=== PATIENT | male | born 1950 | race Native Hawaiian/Other Pacific Islander ===

== ENCOUNTER 2017-01-06 15:10 | Emergency (ER) | payer OTHER ==
[~2017-01-06] VITALS: Ht 188 cm; Wt 110.0 kg
[~2017-01-06 15:10] MED LIST: ASPI325T PO; DILT31TA PO; FURO1TAB60 PO; METF500T PO; PROT40TA PO
[2017-01-06 15:12] VITALS: BP 218/113; PULSE 86; RESP 20; TEMP 98.5; O2SAT 96
--- NOTE | 2017-01-06 15:17 | PD ---
Physical Exam Time Seen by Provider: 15:14 Narrative 66 y/o male here for evaluation htn, dizziness for one month. Tomorrow he begins fasting for Ramadan and he was hoping to get medical clearance for this. Vital signs reviewed. Seen at triage desk. Awaiting bed placement. Data Data Last Documented VS Vital Signs Date Time Temp Pulse Resp B/P Pulse Ox O2 Delivery O2 Flow Rate FiO2 01/06/17 15:12 98.5 86 20 218/113 96 Room Air [facility] Medical Record Reviewed: Yes Supervised Visit with LIZETTE: Vinayak Snyder January 06, 2017 15:17
[2017-01-06] MEDS ORDERED: hydrALAZINE HCL 20 MG/ML VIAL IV PUSH ONE (15:45)
--- NOTE | 2017-01-06 15:58 | PD ---
HPI Chief Complaint: Medical Clearance Time Seen by Provider: 15:39 Travel History International Travel<30 days: No Contact w/Intl Traveler<30days: No Traveled to known affect area: No History of Present Illness HPI This is a 66-year-old male with history of hypertension, kidney stones, who presents today with complaints of headache and dizziness with elevated blood pressure. Patient also says he has mild left flank pain. Patient states he was seen in [facility] several days ago was diagnosed with kidney stones. The patient also reports that he is a Sikh and is starting, don tomorrow. He wants to make sure that it'll be okay for him to fast for Ramadan with the symptoms he is experiencing. He denies this being the worst headache of his life. He states it's mild bifrontal but continuous. He denies any stiff neck. There is no photophobia or nausea. Patient denies any chest pain, chest pressure. He denies any shortness of breath. PFSH Past Medical History Hx Anticoagulant Therapy: Yes Heart Rhythm Problems: Yes Cardiovascular Problems: Yes Chest Pain: Yes Congestive Heart Failure: Yes Diabetes: Yes Patient Takes Glucophage: Yes Diminished Hearing: No Gastrointestinal Disorders: Yes (history of ulcers in the past) GERD: Yes Headaches: Yes Hypertension: Yes Respiratory: Yes Ulcer: Yes Tetanus Vaccination: > 5 Years Influenza Vaccination: No Past Surgical History Other Surgery: Yes (neck "a long time ago") Social History Alcohol Use: Yes (OCASSIONALLY) Tobacco Use: No Substance Use: No Allergies-Medications (Allergen,Severity, Reaction): Coded Allergies: No Known Allergies (Verified , 01/06/17) Reported Meds & Prescriptions Reported Meds & Active Scripts Active Metformin (Metformin HCl) 500 Mg Tab 500 Mg PO BIDPC With meals Diltiazem ER 12 HR (Diltiazem HCl) 60 Mg Caper 60 Mg PO BID Reported Metformin (Metformin HCl) 500 Mg Tab 500 Mg PO BIDPC With meals Cardizem (Diltiazem HCl) 30 Mg Tab 30 Mg PO BID Review of Systems Except as stated in HPI: all other systems reviewed are Neg General / Constitutional: No: Fever, Chills Eyes: No: Diploplia, Blurred Vision, Photophobia HENT: Positive: Headaches (bifrontal), Lightheadedness (dizziness), No: Neck Stiffness, Neck Pain Cardiovascular: No: Chest Pain or Discomfort, Palpitations Respiratory: No: Cough, Shortness of Breath Gastrointestinal: No: Nausea, Vomiting, Abdominal Pain Genitourinary: Positive: Flank Pain, No: Hematuria Musculoskeletal: No: Weakness Neurologic: Positive: Headache (mild bifrontal), No: Weakness, Dizziness Endocrine: No: Polyuria, Polydipsia Physical Exam Narrative GENERAL: Well-developed well-nourished gentleman in no acute respiratory distress SKIN: Focused skin assessment warm/dry. HEAD: Atraumatic. Normocephalic. EYES No scleral icterus. No injection or drainage. ENT: No nasal bleeding or discharge. Mucous membranes pink and moist. NECK: Trachea midline. No JVD. Supple CARDIOVASCULAR: Regular rate in the 80s and normal rhythm. No murmur appreciated. RESPIRATORY: No accessory muscle use. Clear to auscultation. Breath sounds equal bilaterally. GASTROINTESTINAL: Abdomen soft, non-tender, nondistended. MUSCULOSKELETAL: No obvious deformities. No clubbing. No cyanosis. No edema. NEUROLOGICAL: Awake and alert. No obvious cranial nerve deficits. Motor grossly within normal limits. Normal speech. Data Data Last Documented VS Vital Signs Date Time Temp Pulse Resp B/P Pulse Ox O2 Delivery O2 Flow Rate FiO2 01/06/17 16:14 95 17 161/62 99 Room Air 01/06/17 15:12 98.5 Orders Electrocardiogram (01/06/17 ) Complete Blood Count With Diff (01/06/17 15:39) Comprehensive Metabolic Panel (01/06/17 15:39) Ckmb (Isoenzyme) Profile (01/06/17 15:39) Troponin I (01/06/17 15:39) Urinalysis - C+S If Indicated (01/06/17 15:39) Ct Brain W/O Iv Contrast(Rout) (01/06/17 15:39) Hydralazine Inj (Apresoline Inj) (01/06/17 15:45) Labs Laboratory Tests Test 01/06/17 01/06/17 15:39 16:50 White Blood Count 7.3 TH/MM3 Red Blood Count 5.05 MIL/MM3 Hemoglobin 14.2 GM/DL Hematocrit 41.7 % Mean Corpuscular Volume 82.6 FL Mean Corpuscular Hemoglobin 28.2 PG Mean Corpuscular Hemoglobin 34.1 % Concent Red Cell Distribution Width 16.1 % Platelet Count 144 TH/MM3 Mean Platelet Volume 8.9 FL Neutrophils (%) (Auto) 62.2 % Lymphocytes (%) (Auto) 26.0 % Monocytes (%) (Auto) 8.8 % Eosinophils (%) (Auto) 2.5 % Basophils (%) (Auto) 0.5 % Neutrophils # (Auto) 4.6 TH/MM3 Lymphocytes # (Auto) 1.9 TH/MM3 Monocytes # (Auto) 0.6 TH/MM3 Eosinophils # (Auto) 0.2 TH/MM3 Basophils # (Auto) 0.0 TH/MM3 CBC Comment DIFF FINAL Differential Comment Sodium Level 138 MEQ/L Potassium Level 4.2 MEQ/L Chloride Level 101 MEQ/L Carbon Dioxide Level 29.8 MEQ/L Anion Gap 7 MEQ/L Blood Urea Nitrogen 17 MG/DL Creatinine 0.91 MG/DL Estimat Glomerular Filtration 84 ML/MIN Rate Random Glucose 171 MG/DL Calcium Level 9.4 MG/DL Total Bilirubin 0.3 MG/DL Aspartate Amino Transf 13 U/L (AST/SGOT) Alanine Aminotransferase 29 U/L (ALT/SGPT) Alkaline Phosphatase 74 U/L Total Creatine Kinase 71 U/L Troponin I LESS THAN 0.02 NG/ML Total Protein 7.2 GM/DL Albumin 3.7 GM/DL Urine Color LIGHT-YELLOW Urine Turbidity CLEAR Urine pH 7.0 Urine Specific [place] 1.009 Urine Protein NEG mg/dL Urine Glucose (UA) NEG mg/dL Urine Ketones NEG mg/dL Urine Occult Blood NEG Urine Nitrite NEG Urine Bilirubin NEG Urine Urobilinogen LESS THAN 2.0 MG/DL Urine Leukocyte Esterase NEG Urine WBC 1 /hpf Urine Amorphous Sediment RARE Urine Mucus FEW /lpf Microscopic Urinalysis Comment CULT NOT INDICATED MDM Medical Decision Making Medical Screen Exam Complete: Yes Emergency Medical Condition: Yes Differential Diagnosis Uncontrolled hypertension versus hypertension urgency/emergency versus kidney stone Narrative Course This is a 66-year-old gentleman with history of hypertension, diabetes mellitus , kidney stone, presents today with complaints of elevated blood pressure with dizziness. The patient had a blood pressure was extremely elevated. He is not currently taking his blood pressure medicines. He was given hydralazine, 20 mg I V times one dose. His blood pressures come down nicely. He currently has no dizziness. CT scan of the brain shows no evidence of acute intracranial abnormalities. Laboratory tests show elevated blood sugar and he does have a history of diabetes mellitus. He was concerned that since it was Ramadan starting tomorrow that he should be checked out. At this point I see no reason for him not to fast during Ramadan. He is instructed to drink plenty of fluids outside of the Ramadan fasting window. He is also instructed to check his blood pressure daily. He is instructed to return of he develops any return of symptoms, worsening flank pain, difficulty urinating, headache, nausea vomiting , or any other reason the concerns and. Diagnosis Primary Impression: Uncontrolled hypertension Additional Impressions: Diabetes mellitus history of renal lithiasis. Additional Instructions: Return if feeling worse. Follow up with primary care physician for blood pressure and diabetes control. Check blood pressure daily and record. If feeling worse, headache, dizziness, nausea vomiting, or any other reason please return to the emergency department. Med/Other Pt SpecificInfo: Prescription(s) given Scripts Metformin 500 Mg [id number] Mg PO BIDPC #60 TAB Ref 0 With meals Prov:Augustin Reeves MD 01/06/17 Diltiazem ER 12 HR 60 Mg Caper60 Mg PO BID #60 CAP Ref 0 Prov:Augustin Reeves MD 01/06/17 Disposition: 01 DISCHARGE HOME Condition: Stable Augustin Reeves MD January 06, 2017 15:58
[2017-01-06 16:09] LABS: AUTOMATED NEUTROPHIL # 4.6 TH/MM3 (1.8-7.7); BASOPHIL % 0.5 % (0.0-2.0); EOSINOPHIL # 0.2 TH/MM3 (0-0.4); EOSINOPHIL % 2.5 % (0.0-4.0); HEMATOCRIT 41.7 % (39.0-51.0); HEMO FLAGS DIFF FINAL; LYMPHOCYTE # 1.9 TH/MM3 (1.0-4.8); MEAN CELL VOLUME 82.6 FL (80.0-100.0); MEAN CORPUSCULAR HEMOGLOBIN 28.2 PG (27.0-34.0); MEAN CORPUSCULAR HGB CONC 34.1 % (32.0-36.0); MONO % 8.8 % (0.0-8.0); NEUT % 62.2 % (16.0-70.0); PLATELET COUNT 144 TH/MM3 (150-450); RED BLOOD COUNT 5.05 MIL/MM3 (4.50-5.90); RED CELL DISTRIBUTION WIDTH 16.1 % (11.6-17.2); WHITE BLOOD COUNT 7.3 TH/MM3 (4.0-11.0)
[2017-01-06 16:14] VITALS: BP 161/62; PULSE 95; RESP 17; O2SAT 99
--- NOTE | 2017-01-06 16:18 | RADRPT ---
EXAM DATE/TIME: 01/06/2017 16:01 [facility] COMPARISON: CT BRAIN W/O CONTRAST, November 14, 2015, 19:57. INDICATIONS : Cephalgia. RADIATION DOSE: 56.35 CTDIvol (mGy) MEDICAL HISTORY : Hypertension. Diabetes mellitus type 2. Cardiovascular disease SURGICAL HISTORY : None. ENCOUNTER: Initial ACUITY: 1 month PAIN SCALE: 7/10 LOCATION: Bilateral cranial TECHNIQUE: Multiple contiguous axial images were obtained of the head. Using automated exposure control and adj ustment of the mA and/or kV according to patient size, radiation dose was kept as low as reasonably a chievable to obtain optimal diagnostic quality images. FINDINGS: CEREBRUM: The ventricles are normal for age. No evidence of midline shift, mass lesion, hemorrhage or acute in farction. No extra-axial fluid collections are seen. POSTERIOR FOSSA: The cerebellum and brainstem are intact. The 4th ventricle is midline. The cerebellopontine angle i s unremarkable. EXTRACRANIAL: The visualized portion of the orbits is intact. There is fluid and mucosal thickening in the right ma xillary sinus. SKULL: The calvaria is intact. No evidence of skull fracture. CONCLUSION: 1. No acute intracranial abnormalities. Stable chronic white matter ischemic changes. Right maxillary sinus disease. Clemente Swenson MD on January 06, 2017 at 16:13 Board Certified Radiologist. This report was verified electronically.
[2017-01-06 16:33] LABS: ALT (GPT) 29 U/L (12-78); ANION GAP 7 MEQ/L (5-15); AST (GOT) 13 U/L (15-37); BICARBONATE 29.8 MEQ/L (21.0-32.0); BLOOD UREA NITROGEN 17 MG/DL (7-18); CHLORIDE 101 MEQ/L (98-107); GLOMERULAR FILTRATION RATE 84 ML/MIN (>89); POTASSIUM 4.2 MEQ/L (3.5-5.1); SODIUM (NA) 138 MEQ/L (136-145)
[2017-01-06 16:37] LABS: ALKALINE PHOSPHATASE 74 U/L (45-117); TOTAL BILIRUBIN ADULT 0.3 MG/DL (0.2-1.0)
[2017-01-06 16:51] LABS: CREATINE KINASE 71 U/L (39-308)
[2017-01-06 17:38] LABS: BLOOD, URINE NEG (NEG); COMMENT (UR) CULT NOT INDICATED; CULTURE IF INDICATED CULT NOT INDICATED; GLUCOSE,URINE NEG (NEG); KETONE, URINE NEG (NEG); MUCUS URINE FEW /lpf (OCC); NITRITE,URINE NEG (NEG); URINE COLOR LIGHT-YELLOW (YELLW/STRAW)
[2017-01-06] MEDS ORDERED: METF500T PO (18:19)
[2017-01-06] MEDS ORDERED: DILT60CA PO (18:19)
[2017-01-06 18:37] VITALS: BP 140/82; TEMP 97.8
--- NOTE | 2017-01-07 15:37 | EKG ---
Date Performed: 01/06/2017 Time Performed: 15:38:55 PTAGE: 66 years EKG: Probable LVH with secondary ST-T wave change Since PREVIOUS TRACING 07/07/2016, no significant change. PREVIOUS TRACIN07/07/2016 23.56 DOCTOR: Cristopher Penny Interpretating Date/Time 01/07/2017 15:36:22
== END 2017-01-06 18:36 | disposition home or self-care (01) ==
LOC: NEPC 15:10
DX: I10 Essential (primary) hypertension (principal); R51 Headache; R42 Dizziness and giddiness; J32.0 Chronic maxillary sinusitis; E11.9 Type 2 diabetes mellitus without complications; Z87.442 Personal history of urinary calculi
CPT/HCPCS: 70450; 80053; 81001; 82550; 84484; 85025; 93005; 96374; 99285; J0360

== ENCOUNTER 2017-05-08 15:27 | Emergency (ER) | payer OTHER ==
[2017-05-08] VITALS (7 sets, daily range): BP systolic 163–210; BP diastolic 90–120; PULSE 86–89; RESP 16; TEMP 98.4; O2SAT 98–100
[~2017-05-08] VITALS: Ht 188 cm; Wt 109.0 kg
[~2017-05-08 15:27] MED LIST changes: -ASPI325T PO; +DILT60CA PO; -FURO1TAB60 PO; -PROT40TA PO
--- NOTE | 2017-05-08 16:01 | PD ---
Physical Exam Date Seen by Provider: May 08, 2017 Time Seen by Provider: 16:00 Narrative 66 yo male here for HTN. history of this. Doesnt feel well. Here for refill of med. Ran out 3 days ago. No other complains. Vitals are stable in triage except for high BP. Awaiting bed placement. Data Data Last Documented VS Vital Signs Date Time Temp Pulse Resp B/P (MAP) Pulse Ox O2 Delivery O2 Flow Rate FiO2 05/08/17 15:28 98.4 89 16 205/100 (135) 98 MDM Medical Record Reviewed: Yes Supervised Visit with LIZETTE: Lorenzo Kamara May 08, 2017 16:01
[2017-05-08] MEDS ORDERED: cloNIDine HCL 0.2 MG TAB PO ONE (17:30)
--- NOTE | 2017-05-08 17:32 | PD ---
HPI Chief Complaint: Hypertension Time Seen by Provider: 17:24 Travel History International Travel<30 days: No Contact w/Intl Traveler<30days: No Traveled to known affect area: No History of Present Illness HPI 66-year-old male presents to the emergency Department for medication refill of his diltiazem. Patient states he ran out 3 days ago. Patient states he is tired because he had to drive to [place] and got Back at 4:00 This Morning. He Reports a Mild Headache. No Chest Pain or shortness of Breath. No Abdominal Pain. No Nausea, Vomiting, Diarrhea. He Reports History of Hypertension and Diabetes. He Currently Takes Metformin and diltiazem. He states he follows up with primary care physician, but did not get a medication refill when he saw his primary last week. Patient states he is only here for his medication refill. PFSH Past Medical History Hx Anticoagulant Therapy: Yes Heart Rhythm Problems: Yes Cardiovascular Problems: Yes Chest Pain: Yes Congestive Heart Failure: Yes Diabetes: Yes Patient Takes Glucophage: No Diminished Hearing: No Gastrointestinal Disorders: Yes (history of ulcers in the past) GERD: Yes Headaches: Yes Hypertension: Yes Respiratory: Yes Ulcer: Yes Tetanus Vaccination: > 5 Years Influenza Vaccination: No Past Surgical History Other Surgery: Yes (neck "a long time ago") Social History Alcohol Use: Yes (OCASSIONALLY) Tobacco Use: No Substance Use: No Allergies-Medications (Allergen,Severity, Reaction): Coded Allergies: No Known Allergies (Verified , 05/08/17) Reported Meds & Prescriptions Reported Meds & Active Scripts Active Metformin (Metformin HCl) 500 Mg Tab 500 Mg PO BIDPC With meals Diltiazem ER 12 HR (Diltiazem HCl) 60 Mg Caper 60 Mg PO BID Reported Metformin (Metformin HCl) 500 Mg Tab 500 Mg PO BIDPC With meals Cardizem (Diltiazem HCl) 30 Mg Tab 30 Mg PO BID Review of Systems Except as stated in HPI: all other systems reviewed are Neg Physical Exam Narrative GENERAL: Well-nourished, well-developed male patient, afebrile. SKIN: Focused skin assessment warm/dry. HEAD: Normocephalic. Atraumatic. EYES: No scleral icterus. No injection or drainage. NECK: Supple, trachea midline. No JVD or lymphadenopathy. CARDIOVASCULAR: Regular rate and rhythm without murmurs, gallops, or rubs. RESPIRATORY: Breath sounds equal bilaterally. No accessory muscle use. Lungs sounds are clear to auscultation. GASTROINTESTINAL: Abdomen soft, non-tender, nondistended. MUSCULOSKELETAL: No cyanosis, or edema. BACK: Nontender without obvious deformity. No CVA tenderness. Data Data Last Documented VS Vital Signs Date Time Temp Pulse Resp B/P (MAP) Pulse Ox O2 Delivery O2 Flow Rate FiO2 05/08/17 18:41 86 163/90 (114) 100 05/08/17 15:28 98.4 16 Orders Orders Clonidine (Catapres) (05/08/17 17:30) [facility] Medical Decision Making Medical Screen Exam Complete: Yes Emergency Medical Condition: Yes Medical Record Reviewed: Yes Differential Diagnosis Hypertension versus medication refill versus hypertensive emergency Narrative Course 66-year-old male presents to the emergency department requesting medication refill of his diltiazem. Patient was given clonidine 0.2 mg by mouth prior to me seeing the patient. I will monitor his blood pressure and the discharge him home with a prescription for his diltiazem. Upon reassessment, blood pressure is 163/90. Patient states he feels fine and would like to go home. Patient will be discharged with a refill of his Diltiazem. He is to return here for any worsening symptoms. He verbalizes agreement and understanding. The patient was discharged in stable condition with instructions, including return instructions and follow up instructions. Diagnosis Primary Impression: Hypertension Qualified Codes: I10 - Essential (primary) hypertension Referrals: Primary Care Physician call for appointment Patient Instructions: General Instructions, Hypertension (ED) Additional Instructions: Take Diltiazem as directed. Monitor your blood pressure. Follow up with your primary care physician. Return to the emergency department for any acute, worsening of symptoms. Med/Other Pt SpecificInfo: Prescription(s) given Scripts Diltiazem ER 12 HR (Diltiazem ER 12 HR) 60 Mg Caper 60 MG PO BID, #60 CAP 0 Refills Prov: GerZora 05/08/17 Disposition: 01 DISCHARGE HOME Condition: Stable Zora Cyr May 08, 2017 17:32
[2017-05-08] MEDS ORDERED: DILT60CA PO (18:45)
== END 2017-05-08 19:04 | disposition home or self-care (01) ==
LOC: NEPK 15:27 → NEPC 19:04
DX: I10 Essential (primary) hypertension (principal); E11.9 Type 2 diabetes mellitus without complications; Z76.0 Encounter for issue of repeat prescription; Z79.01 Long term (current) use of anticoagulants
CPT/HCPCS: 99283

== ENCOUNTER 2017-07-05 15:10 | Emergency (ER) | payer OTHER ==
[~2017-07-05] VITALS: Ht 182.9 cm; Wt 109.0 kg
[2017-07-05 15:12] VITALS: BP 233/125; PULSE 99; RESP 20; TEMP 97.8; O2SAT 97
[2017-07-05] MEDS ORDERED: LABETALOL HCL 100 MG/20 ML VIAL IV PUSH ONE (15:45)
[2017-07-05] MEDS ORDERED: KETOROLAC TROMETHAMINE 30 MG/ML (IVP) VIAL IV PUSH ONE (15:45)
[2017-07-05] MEDS ORDERED: SODIUM CHLORIDE 0.9% FLUSH 10 ML FLUSH IVF PRN (15:45)
--- NOTE | 2017-07-05 15:50 | PD ---
HPI Chief Complaint: Complaint Time Seen by Provider: 15:35 Travel History International Travel<30 days: No Contact w/Intl Traveler<30days: No Traveled to known affect area: No History of Present Illness HPI 66-year-old male presents to the emergency department for evaluation of left lower back pain, increased urinary frequency. He states that the urinary frequency started approximately one month ago, but the back pain just started in the last day or 2. Patient states that the back pain could be from the way he slept, but believes is related to his urinary symptoms. Patient does report a history of nephrolithiasis in the past. He states this pain is different. Patient denies any fevers or chills. No chest pain or shortness of breath. No abdominal pain. No nausea or vomiting. No diarrhea or constipation. He denies any abdominal surgeries. He does report a history of hypertension, diabetes. He states he took his blood pressure medication this morning as prescribed. Severity is mild to moderate. No exacerbating or alleviating factors. PFSH Past Medical History Hx Anticoagulant Therapy: Yes Heart Rhythm Problems: Yes Cardiovascular Problems: Yes Chest Pain: Yes Congestive Heart Failure: Yes Diabetes: Yes Diminished Hearing: No Gastrointestinal Disorders: Yes (history of ulcers in the past) GERD: Yes Headaches: Yes Hypertension: Yes Respiratory: Yes Ulcer: Yes Past Surgical History Other Surgery: Yes (neck "a long time ago") Social History Alcohol Use: Yes (OCASSIONALLY) Tobacco Use: No Substance Use: No Allergies-Medications (Allergen,Severity, Reaction): Coded Allergies: No Known Allergies (Verified , 05/08/17) Reported Meds & Prescriptions Reported Meds & Active Scripts Active Diltiazem ER 12 HR (Diltiazem HCl) 60 Mg Caper 60 Mg PO BID Metformin (Metformin HCl) 500 Mg Tab 500 Mg PO BIDPC With meals Reported Metformin (Metformin HCl) 500 Mg Tab 500 Mg PO BIDPC With meals Cardizem (Diltiazem HCl) 30 Mg Tab 30 Mg PO BID Review of Systems Except as stated in HPI: all other systems reviewed are Neg Physical Exam Narrative GENERAL: Well-nourished, well-developed male patient, afebrile. SKIN: Focused skin assessment warm/dry. HEAD: Normocephalic. Atraumatic. EYES: No scleral icterus. No injection or drainage. NECK: Supple, trachea midline. No JVD or lymphadenopathy. CARDIOVASCULAR: Regular rate and rhythm without murmurs, gallops, or rubs. RESPIRATORY: Breath sounds equal bilaterally. No accessory muscle use. Lung sounds are clear to auscultation throughout. GASTROINTESTINAL: Abdomen soft, non-tender, nondistended. MUSCULOSKELETAL: No cyanosis, or edema. Tenderness to palpation over left lower back. BACK: Nontender without obvious deformity. No CVA tenderness. Data Data Last Documented VS Vital Signs Date Time Temp Pulse Resp B/P (MAP) Pulse Ox O2 Delivery O2 Flow Rate FiO2 07/05/17 16:35 82 22 160/81 (107) 94 Room Air 07/05/17 15:12 97.8 Orders Orders Complete Blood Count With Diff (07/05/17 15:44) Comprehensive Metabolic Panel (07/05/17 15:44) Urinalysis - C+S If Indicated (07/05/17 15:44) Ct Abd/Pel W/O Iv Contrast (07/05/17 15:44) Ecg Monitoring (07/05/17 15:44) Iv Access Insert/Monitor (07/05/17 15:44) Ketorolac Inj (Toradol Inj) (07/05/17 15:45) Sodium Chloride 0.9% Flush (Ns Flush) (07/05/17 15:45) Labetalol Inj (Trandate Inj) (07/05/17 15:45) Labs Laboratory Tests Test 07/05/17 16:00 White Blood Count 6.7 TH/MM3 Red Blood Count 4.99 MIL/MM3 Hemoglobin 14.2 GM/DL Hematocrit 43.2 % Mean Corpuscular Volume 86.5 FL Mean Corpuscular Hemoglobin 28.5 PG Mean Corpuscular Hemoglobin Concent 33.0 % Red Cell Distribution Width 14.1 % Platelet Count 153 TH/MM3 Mean Platelet Volume 9.0 FL Neutrophils (%) (Auto) 67.0 % Lymphocytes (%) (Auto) 23.3 % Monocytes (%) (Auto) 7.6 % Eosinophils (%) (Auto) 1.6 % Basophils (%) (Auto) 0.5 % Neutrophils # (Auto) 4.5 TH/MM3 Lymphocytes # (Auto) 1.6 TH/MM3 Monocytes # (Auto) 0.5 TH/MM3 Eosinophils # (Auto) 0.1 TH/MM3 Basophils # (Auto) 0.0 TH/MM3 CBC Comment DIFF FINAL Differential Comment Urine Color YELLOW Urine Turbidity CLEAR Urine pH 6.0 Urine Specific [place] 1.017 Urine Protein 30 mg/dL Urine Glucose (UA) 70 mg/dL Urine Ketones NEG mg/dL Urine Occult Blood TRACE Urine Nitrite NEG Urine Bilirubin NEG Urine Urobilinogen LESS THAN 2.0 MG/DL Urine Leukocyte Esterase NEG Urine RBC 9 /hpf Urine WBC 2 /hpf Urine Squamous Epithelial Cells <1 /hpf Urine Mucus FEW /lpf Microscopic Urinalysis Comment CULT NOT INDICATED Blood Urea Nitrogen 13 MG/DL Creatinine 0.94 MG/DL Random Glucose 203 MG/DL Total Protein 7.1 GM/DL Albumin 3.7 GM/DL Calcium Level 8.7 MG/DL Alkaline Phosphatase 82 U/L Aspartate Amino Transf (AST/SGOT) 11 U/L Alanine Aminotransferase (ALT/SGPT) 22 U/L Total Bilirubin 0.2 MG/DL Sodium Level 139 MEQ/L Potassium Level 3.8 MEQ/L Chloride Level 103 MEQ/L Carbon Dioxide Level 28.5 MEQ/L Anion Gap 8 MEQ/L Estimat Glomerular Filtration Rate 81 ML/MIN MDM Medical Decision Making Medical Screen Exam Complete: Yes Emergency Medical Condition: Yes Medical Record Reviewed: Yes Interpretation(s) Last Impressions Abdomen/Pelvis CT 07/05/17 1544 Signed Impressions: Service Date/Time: Monday, July 05, 2017 16:07 - CONCLUSION: Stone lower pole right kidney. Multiple cysts of the right kidney. No etiology for pain is noted. Lionel Lynn MD Differential Diagnosis UTI vs. BPH vs. pyelonephritis vs. nephrolithiasis Narrative Course 66-year-old male presents to the emergency department for evaluation of urinary frequency, left lower back pain. Patient is also hypertensive in triage with a blood pressure 233/125. Patient does state a take his blood pressure medication as directed. He denies any headache. No chest pain or shortness of breath. Patient is been seen multiple times for hypertension. IV access established. CBC, CMP, UA, CT Ana/pelvis without contrast are ordered and pending. Patient is given Toradol 30 mg IV, labetalol 10 mg IV. CBC is unremarkable. CMP shows no acute abnormality. UA shows 9 RBCs, no evidence of acute infection. CT abdomen/pelvis shows stone and lower pole right kidney, multiple cysts of the right kidney, no etiology for pain. Blood pressures improved to 160/81. Patient is instructed to follow-up with urologist or primary care physician. He is to return here for any acute worsening of symptoms. Diagnosis Primary Impression: Back pain Qualified Codes: M54.5 - Low back pain Additional Impressions: Urinary frequency Hypertension Qualified Codes: I10 - Essential (primary) hypertension Referrals: Primary Care Physician Urologist Patient Instructions: Acute Low Back Pain (ED), General Instructions Additional Instructions: Follow-up with your primary care physician for further evaluation as well as recheck of your blood pressure. Take naproxen as directed as needed for pain. Return to the emergency department for any acute worsening of symptoms. Med/Other Pt SpecificInfo: Prescription(s) given Scripts Naproxen (Naproxen) 375 Mg Tab 375 MG PO BID Y for PAIN SCALE 1 TO 10, #14 TAB 0 Refills Prov: Zora Cyr 07/05/17 Disposition: 01 DISCHARGE HOME Condition: Stable Zora Cyr Jul 05, 2017 15:50
[2017-07-05 16:22] LABS: AUTOMATED NEUTROPHIL # 4.5 TH/MM3 (1.8-7.7); BASOPHIL % 0.5 % (0.0-2.0); EOSINOPHIL # 0.1 TH/MM3 (0-0.4); EOSINOPHIL % 1.6 % (0.0-4.0); HEMATOCRIT 43.2 % (39.0-51.0); HEMO FLAGS DIFF FINAL; LYMPH % 23.3 % (9.0-44.0); LYMPHOCYTE # 1.6 TH/MM3 (1.0-4.8); MEAN CELL VOLUME 86.5 FL (80.0-100.0); MEAN CORPUSCULAR HEMOGLOBIN 28.5 PG (27.0-34.0); MONO % 7.6 % (0.0-8.0); PLATELET COUNT 153 TH/MM3 (150-450); RED BLOOD COUNT 4.99 MIL/MM3 (4.50-5.90); RED CELL DISTRIBUTION WIDTH 14.1 % (11.6-17.2); WHITE BLOOD COUNT 6.7 TH/MM3 (4.0-11.0)
[2017-07-05 16:23] LABS: BLOOD, URINE TRACE (NEG); COMMENT (UR) CULT NOT INDICATED; CULTURE IF INDICATED CULT NOT INDICATED; GLUCOSE,URINE 70 mg/dL (NEG); KETONE, URINE NEG (NEG); MUCUS URINE FEW /lpf (OCC); NITRITE,URINE NEG (NEG); SQUAMOUS EPITHELIAL CELL URINE <1 /hpf (0-5); URINE COLOR YELLOW (YELLW/STRAW)
[2017-07-05 16:28] VITALS: BP 194/103; PULSE 90; RESP 26; O2SAT 99
--- NOTE | 2017-07-05 16:28 | RADRPT ---
EXAM DATE/TIME: 07/05/2017 16:07 [facility] COMPARISON: CT ABDOMEN & PELVIS W CONTRAST, February 02, 2011, 19:59. INDICATIONS : Left sided abdomen pain, calculi. ORAL CONTRAST: No oral contrast ingested. RADIATION DOSE: 8.52 CTDIvol (mGy) MEDICAL HISTORY : Cardiovascular disease. Diabetes mellitus type 2. Hypertension.Ulcer. SURGICAL HISTORY : None. ENCOUNTER: Initial ACUITY: 1 week PAIN SCALE: 7/10 LOCATION: Left lower quadrant TECHNIQUE: Volumetric scanning of the abdomen and pelvis was performed. Using automated exposure control and ad justment of the mA and/or kV according to patient size, radiation dose was kept as low as reasonably achievable to obtain optimal diagnostic quality images. DICOM format image data is available electro nically for review and comparison. FINDINGS: LOWER LUNGS: The visualized lower lungs are clear. LIVER: Homogeneous density without lesion. There is no dilation of the biliary tree. No calcified gallston es. SPLEEN: Normal size without lesion. PANCREAS: Within normal limits. KIDNEYS: There is a large cyst upper pole the right kidney similar to 2011. 8 mm stone lower pole right kidney . No stones on the left side. Small cyst left kidney.. ADRENAL GLANDS: Within normal limits. VASCULAR: There is no aortic aneurysm. BOWEL/MESENTERY: The stomach, small bowel, and colon demonstrate no acute abnormality. There is no free intraperitone al air or fluid. ABDOMINAL WALL: Within normal limits. RETROPERITONEUM: There is no lymphadenopathy. BLADDER: No wall thickening or mass. REPRODUCTIVE: Within normal limits. INGUINAL: There is no lymphadenopathy or hernia. MUSCULOSKELETAL: Within normal limits for patient age. CONCLUSION: Stone lower pole right kidney. Multiple cysts of the right kidney. No etiology for pain is noted. Lionel Lynn MD on July 05, 2017 at 16:23 Board Certified Radiologist. This report was verified electronically.
[2017-07-05 16:32] LABS: ANION GAP 8 MEQ/L (5-15); AST (GOT) 11 U/L (15-37); BICARBONATE 28.5 MEQ/L (21.0-32.0); BLOOD UREA NITROGEN 13 MG/DL (7-18); CHLORIDE 103 MEQ/L (98-107); GLOMERULAR FILTRATION RATE 81 ML/MIN (>89); POTASSIUM 3.8 MEQ/L (3.5-5.1); SODIUM (NA) 139 MEQ/L (136-145)
[2017-07-05 16:35] VITALS: BP 160/81; PULSE 82; RESP 22; O2SAT 94
[2017-07-05 16:38] LABS: ALKALINE PHOSPHATASE 82 U/L (45-117); ALT (GPT) 22 U/L (12-78); TOTAL BILIRUBIN ADULT 0.2 MG/DL (0.2-1.0)
[2017-07-05] MEDS ORDERED: NAPR-855 PO (16:57)
== END 2017-07-05 18:29 | disposition home or self-care (01) ==
LOC: NEPE 15:10
DX: M54.5 Low back pain (principal); R35.0 Frequency of micturition; I11.0 Hypertensive heart disease with heart failure; I50.9 Heart failure, unspecified; E11.9 Type 2 diabetes mellitus without complications; Z79.84 Long term (current) use of oral hypoglycemic drugs
CPT/HCPCS: 74176; 80053; 81001; 85025; 96374; 96375; 99285; J1885

== ENCOUNTER 2017-10-11 03:04 | Inpatient (IN) | payer OTHER, MEDICARE ==
[2017-10-11] VITALS (9 sets, daily range): BP systolic 96–151; BP diastolic 55–73; PULSE 92–115; RESP 14–24; TEMP 97.5–98.7; O2SAT 96–98
[~2017-10-11] VITALS: Ht 188 cm; Wt 95.0 kg
[~2017-10-11 03:04] MED LIST changes: +NAPR-855 PO
[2017-10-11] MEDS ORDERED: PANTOPRAZOLE INJ 80 MG in SODIUM CHLORIDE 0.9% INJ 35 ML IV ONE (03:25)
[2017-10-11] MEDS ORDERED: SODIUM CHLOR 0.9% 250 ML INJ 250 ML IV ONE (03:30)
[2017-10-11] MEDS ORDERED: SODIUM CHLORIDE 0.9% FLUSH 10 ML FLUSH IVF PRN (03:30)
[2017-10-11 03:42] LABS: AUTOMATED NEUTROPHIL # 5.5 TH/MM3 (1.8-7.7); BASOPHIL % 0.5 % (0.0-2.0); EOSINOPHIL # 0.2 TH/MM3 (0-0.4); EOSINOPHIL % 1.9 % (0.0-4.0); HEMATOCRIT 28.6 % (39.0-51.0); HEMOGLOBIN 9.5 GM/DL (13.0-17.0); LYMPH % 34.6 % (9.0-44.0); LYMPHOCYTE # 3.4 TH/MM3 (1.0-4.8); MEAN CELL VOLUME 86.1 FL (80.0-100.0); MEAN CORPUSCULAR HEMOGLOBIN 28.6 PG (27.0-34.0); MEAN CORPUSCULAR HGB CONC 33.2 % (32.0-36.0); MEAN PLATELET VOLUME 9.3 FL (7.0-11.0); MONO % 7.1 % (0.0-8.0); MONOCYTE # 0.7 TH/MM3 (0-0.9); NEUT % 55.9 % (16.0-70.0); PLATELET COUNT 189 TH/MM3 (150-450); RED BLOOD COUNT 3.32 MIL/MM3 (4.50-5.90); RED CELL DISTRIBUTION WIDTH 13.9 % (11.6-17.2); WHITE BLOOD COUNT 9.8 TH/MM3 (4.0-11.0)
[2017-10-11 03:51] LABS: INTERNATIONAL NORMALIZED RATIO 1.1 RATIO; PROTHROMBIN TIME - PATIENT 10.7 SEC (9.8-11.6)
[2017-10-11 04:08] LABS: ALBUMIN 2.9 GM/DL (3.4-5.0); ALT (GPT) 14 U/L (12-78); AST (GOT) 8 U/L (15-37); BICARBONATE 30.2 MEQ/L (21.0-32.0); BLOOD UREA NITROGEN 54 MG/DL (7-18); CALCIUM 8.3 MG/DL (8.5-10.1); CHLORIDE 107 MEQ/L (98-107); CREATININE 1.05 MG/DL (0.60-1.30); GLOMERULAR FILTRATION RATE 71 ML/MIN (>89); GLUCOSE,RANDOM 249 MG/DL (74-106); SODIUM (NA) 143 MEQ/L (136-145)
[2017-10-11] MEDS: PANTOPRAZOLE INJ 80 MG in SODIUM CHLORIDE 0.9% INJ 100 ML IV SCH ×2 (04:08→13:25)
[2017-10-11 04:12] LABS: ALKALINE PHOSPHATASE 46 U/L (45-117); TOTAL BILIRUBIN ADULT 0.1 MG/DL (0.2-1.0); TOTAL PROTEIN 5.5 GM/DL (6.4-8.2); TROPONIN I 0.02 NG/ML (0.02-0.05)
[2017-10-11] MEDS ORDERED: IOHEXOL 350 MG/ML 10 ML VIAL (for RAD DIAG) IVCONTRAST ONE (04:27)
--- NOTE | 2017-10-11 04:42 | PD ---
HPI Chief Complaint: Bleeding Time Seen by Provider: 03:13 Travel History International Travel<30 days: No Contact w/Intl Traveler<30days: No Traveled to known affect area: No History of Present Illness HPI The patient is a 66 year old male who presents to the [facility] emergency department with a history of noticing that his stool appeared to be dark last week. Yesterday he began to have bloody stool. He reports that he has had 5 episodes of bright red blood in his stool. He reports that over the last 3-4 days he has had generalized weakness and fatigue. He denies having any chest pain or pressure, however he reports that he has had shortness of breath. He denies having any cough or congestion. He denies having any known fevers or chills. He reports that one year ago he did have a small peptic ulcer diagnosed by Dr. Regalado. He denies being on any acid reducers at this time. He denies taking any aspirin or [id number] anti-inflammatory pain medications. The patient cannot recall the name of his primary care physician. The patient reports having intermittent abdominal pain in the left side of his abdomen with a sensation of bloating. Otherwise on review of systems, the patient denies having any neck pain, vomiting, urinary symptoms, or other neurologic symptoms. [facility] Past Medical History Narrative Medical The patient's past medical history is significant for peptic ulcer disease, congestive heart failure, hypertension, acid reflux, diabetes mellitus, paroxysmal atrial fibrillation. Hx Anticoagulant Therapy: Yes Heart Rhythm Problems: Yes Cardiovascular Problems: Yes Chest Pain: Yes Congestive Heart Failure: Yes Diabetes: Yes Patient Takes Glucophage: Yes Diminished Hearing: No Gastrointestinal Disorders: Yes (history of ulcers in the past) GERD: Yes Genitourinary: Yes (KIDNEY STONES) Headaches: Yes Hypertension: Yes Respiratory: Yes Immunizations Current: Yes Ulcer: Yes Tetanus Vaccination: Unknown Influenza Vaccination: No Past Surgical History Narrative Surgical The patient's past surgical history is significant for endoscopy. Other Surgery: Yes (neck "a long time ago") Social History Alcohol Use: Yes (OCASSIONALLY) Tobacco Use: Yes (08/15 PPD) Substance Use: No Allergies-Medications (Allergen,Severity, Reaction): Coded Allergies: No Known Allergies (Verified Adverse Reaction, Unknown, 10/11/17) Reported Meds & Prescriptions Reported Meds & Active Scripts Active Diltiazem ER 12 HR (Diltiazem HCl) 60 Mg Caper 60 Mg PO BID Metformin (Metformin HCl) 500 Mg Tab 500 Mg PO BIDPC With meals Reported Metformin (Metformin HCl) 500 Mg Tab 500 Mg PO BIDPC With meals Cardizem (Diltiazem HCl) 30 Mg Tab 30 Mg PO BID Review of Systems Except as stated in HPI: all other systems reviewed are Neg General / Constitutional: No: Fever Eyes: No: Visual changes HENT: No: Headaches, Rhinorrhea, Congestion Cardiovascular: Positive: Dyspnea on exertion, No: Chest Pain or Discomfort Respiratory: Positive: Shortness of Breath, No: Cough Gastrointestinal: Positive: Diarrhea, Abdominal Pain, Hematochezia, Changes in Bowel Habits, No: Nausea, Vomiting, Indigestion, Loss of Appetite Genitourinary: No: Dysuria Musculoskeletal: No: Pain Skin: No Rash Neurologic: Positive: Weakness (Generalized weakness), No: Focal Abnormalities , Change in Mentation, Slurred Speech, Sensory Disturbance Psychiatric: No: Depression Endocrine: No: Polydipsia Hematologic/Lymphatic: No: Easy Bruising Physical Exam Narrative General: The patient is a well-developed well-nourished male in no acute distress. Head and Neck exam: Head is normocephalic atraumatic. Eyes: EOMI, pupils are equal round and reactive to light. Nose: Midline septum with pink mucous membranes Mouth: Dentition unremarkable. Moist mucus membranes. Posterior oropharynx is not erythematous. No tonsillar hypertrophy. Uvula midline. Airway patent. Neck: No palpable lymphadenopathy. No nuchal rigidity. No thyromegaly. Cardiovascular: Regular sounding tachycardia with a rate in the 1 teens without murmurs, gallops , or rubs. No pulse deficit to the extremities on simultaneous auscultation and palpation of his radial artery. Lungs: Clear to auscultation bilaterally. No wheezes, rhonchi, or rales. Abdomen: Soft, without tenderness to palpation in all 4 quadrants of the abdomen. No guarding, rebound, or rigidity. Normal bowel sounds are audible. No tenderness on palpation of McBurney's point. Negative Cardona sign. The patient has abdominal distention related to central obesity. No masses are palpable. Extremities: No clubbing or cyanosis. The patient has trace pedal edema. 2+ pulses in all 4 extremities. No calf tenderness on palpation Back: No costovertebral angle tenderness to palpation. Neurologic Exam: Grossly nonfocal. Skin Exam: No rash noted. Intact skin that is warm and dry. RECTAL EXAM: No masses or tenderness, stool is melanotic. Stool is Hemoccult positive Data Data Last Documented VS Vital Signs Date Time Temp Pulse Resp B/P (MAP) Pulse Ox O2 Delivery O2 Flow Rate FiO2 10/11/17 04:15 101 22 96/56 (69) 96 Room Air 10/11/17 03:10 98.7 Orders Orders Complete Blood Count With Diff (10/11/17 03:25) Comprehensive Metabolic Panel (10/11/17 03:25) Lipase (10/11/17 03:25) Prothrombin Time / Inr (Pt) (10/11/17 03:25) Act Partial Throm Time (Ptt) (10/11/17 03:25) Type And Screen (10/11/17 03:25) Red Blood Cells (Rbc) (10/11/17 03:25) Ecg Monitoring (10/11/17 03:25) Iv Access Insert/Monitor (10/11/17 03:25) Oximetry (10/11/17 03:25) Sodium Chloride 0.9% Flush (Ns Flush) (10/11/17 03:30) Sodium Chloride 0.9... W/Pantoprazole In (10/11/17 03:25) Sodium Chloride 0.9... W/Pantoprazole In (10/11/17 03:25) Sodium Chlor 0.9% 250 Ml Inj (Ns 250 Ml (10/11/17 03:30) Creatine Kinase (Cpk) (10/11/17 03:25) Ckmb (Isoenzyme) Profile (10/11/17 03:25) Troponin I (10/11/17 03:25) B-Type Natriuretic Peptide (10/11/17 03:25) Electrocardiogram (10/11/17 03:25) Ct Abd/Pel W Iv Contrast(Rout) (10/11/17 03:25) Iohexol 350 Inj (Omnipaque 350 Inj) (10/11/17 04:27) Admit Order (Ed Use Only) (10/11/17 05:34) Labs Laboratory Tests Test 10/11/17 03:30 White Blood Count 9.8 TH/MM3 Red Blood Count 3.32 MIL/MM3 Hemoglobin 9.5 GM/DL Hematocrit 28.6 % Mean Corpuscular Volume 86.1 FL Mean Corpuscular Hemoglobin 28.6 PG Mean Corpuscular Hemoglobin Concent 33.2 % Red Cell Distribution Width 13.9 % Platelet Count 189 TH/MM3 Mean Platelet Volume 9.3 FL Neutrophils (%) (Auto) 55.9 % Lymphocytes (%) (Auto) 34.6 % Monocytes (%) (Auto) 7.1 % Eosinophils (%) (Auto) 1.9 % Basophils (%) (Auto) 0.5 % Neutrophils # (Auto) 5.5 TH/MM3 Lymphocytes # (Auto) 3.4 TH/MM3 Monocytes # (Auto) 0.7 TH/MM3 Eosinophils # (Auto) 0.2 TH/MM3 Basophils # (Auto) 0.0 TH/MM3 CBC Comment DIFF FINAL Differential Comment Prothrombin Time 10.7 SEC Prothromb Time International Ratio 1.1 RATIO Activated Partial Thromboplast Time 22.2 SEC Blood Urea Nitrogen 54 MG/DL Creatinine 1.05 MG/DL Random Glucose 249 MG/DL Total Protein 5.5 GM/DL Albumin 2.9 GM/DL Calcium Level 8.3 MG/DL Alkaline Phosphatase 46 U/L Aspartate Amino Transf (AST/SGOT) 8 U/L Alanine Aminotransferase (ALT/SGPT) 14 U/L Total Bilirubin 0.1 MG/DL Sodium Level 143 MEQ/L Potassium Level 4.4 MEQ/L Chloride Level 107 MEQ/L Carbon Dioxide Level 30.2 MEQ/L Anion Gap 6 MEQ/L Estimat Glomerular Filtration Rate 71 ML/MIN Total Creatine Kinase 56 U/L Troponin I 0.02 NG/ML B-Type Natriuretic Peptide 8 PG/ML Lipase 142 U/L [facility] Medical Decision Making Medical Screen Exam Complete: Yes Emergency Medical Condition: Yes Medical Record Reviewed: Yes Interpretation(s) Last Impressions Abdomen/Pelvis CT 10/11/17 0325 Signed Impressions: Service Date/Time: Wednesday, October 11, 2017 04:28 - CONCLUSION: 1. Indeterminate 2.6 cm mass in the posterior right lobe of the liver. This appears new since prior exam although previous examination was not contrast enhanced. This can be further characterized with MRI examination on outpatient basis. Additional subcentimeter hypodense lesions in segment 4 and 3 of the liver are too small to fully characterize. 2. Mild sigmoid diverticulosis. No significant inflammatory change or gross mass. 3. Trace stable anterior pericardial effusion. 4. Redemonstration of fat-containing left inguinal hernia, multiple bilateral renal cysts and nonobstructing 8 mm inferior right renal pole calyceal calculus. Jono Campbell MD Differential Diagnosis Peptic ulcer bleed, versus AVM malformation, versus diverticulosis, versus hemorrhoidal bleed Narrative Course During the course of the patient's emergency department visit, the patient's history, examination, and differential diagnosis were reviewed with the patient. The patient was placed on a classroom monitor with oximetry and frequent blood pressure monitoring. The patient had IV access obtained and blood work sent for analysis. The patient had a EKG done on arrival that shows sinus tachycardia rate of 118, QRS duration 104 ms, QTC 412 ms. The patient has nonspecific ST segment depression noted and lead II, 3, aVF, V4, V5, V6. The patient was initially provided normal saline at 250 mL bolus 1, Protonix 80 mg IV followed by a Protonix drip. The patient's laboratory studies were reviewed and remarkable for a white count of 9.8, hemoglobin 9.5 which is decreased from 14 on last evaluation in our records, platelets 189 with a normal differential, CMP is remarkable for a BUN of 54 with a normal creatinine consistent with GI bleed, glucose 249, calcium 8.3, AST 8, total bilirubin is 0.1, cardiac enzymes within normal limits, BNP is 8, lipase 142, albumin 2.9, PT 10.7, PTT 22.2 Radiology studies were reviewed and remarkable for a CT scan of the abdomen and pelvis that shows an indeterminate 2.6 cm mass in the posterior right lobe of the liver that appears new since prior exam although previous examination was not contrast enhanced. This can be further characterized with an MRI examination on an outpatient basis. The patient has diverticulosis without evidence of diverticulitis. The patient's results were discussed with the patient, including the plan of care. I explained that further testing and/ or monitoring is indicated based on the patient's history, examination, and/ or laboratory findings. Therefore, I recommended admission for additional evaluation. The patient expressed understanding and was agreeable with this plan. The patient was admitted to the hospital in guarded condition and sent to a [facility]. [facility] Point of Care Internal Pos. & Neg. Controls: Passed Fecal Specimen Occult Blood: Positive Physician Communication Physician Communication The patient's case including history, pertinent physical examination findings, and laboratory studies were discussed with Cheri the nurse practitioner for the [facility] service. It was agreed that the patient would be admitted to the [facility]. Diagnosis Primary Impression: GI bleed Qualified Codes: K92.1 - Melena Additional Impression: Liver mass Admitting Information Admitting Physician Requests: Admit Awilda Mc MD Oct 11, 2017 04:42
--- NOTE | 2017-10-11 05:22 | RADRPT ---
EXAM DATE/TIME: 10/11/2017 04:28 [place] COMPARISON: CT ABDOMEN & PELVIS W/O CONTRAST, July 05, 2017, 16:07. INDICATIONS : Rectal bleeding. IV CONTRAST: 90 cc Omnipaque 350 (iohexol) IV ORAL CONTRAST: No oral contrast ingested. RADIATION DOSE: 19.66 CTDIvol (mGy) ; Patient body habitus MEDICAL HISTORY : Hypertension. Gastroesophageal reflux disease. Renal calculi.ulcers SURGICAL HISTORY : None. ENCOUNTER: Initial ACUITY: 1 day PAIN SCALE: 5/10 LOCATION: Bilateral abdomen TECHNIQUE: Volumetric scanning of the abdomen and pelvis was performed. Using automated exposure control and ad justment of the mA and/or kV according to patient size, radiation dose was kept as low as reasonably achievable to obtain optimal diagnostic quality images. DICOM format image data is available electro nically for review and comparison. FINDINGS: LOWER LUNGS: The visualized lower lungs are clear. Trace anterior pericardial effusion. LIVER: 2.6 cm hypodense mass in posterior right lobe of the liver. Not definitively demonstrated on prior ex am. Small subcentimeter hypodense lesions in segments 4 and 3 of the liver which are too small to ful ly characterize. Liver is otherwise unremarkable. Gallbladder is unremarkable by CT. SPLEEN: Normal size without lesion. PANCREAS: Within normal limits. KIDNEYS: 8 mm calyceal calculus in the interpole of the right kidney. Numerous bilateral renal cysts are withi n largest in the superior pole of the right kidney measuring 8.9 cm. ADRENAL GLANDS: Within normal limits. VASCULAR: There is no aortic aneurysm. BOWEL/MESENTERY: The stomach, small bowel, and colon demonstrate no acute abnormality. Mild sigmoid diverticulosis. N ormal appendix. There is no free intraperitoneal air or fluid. ABDOMINAL WALL: Within normal limits. RETROPERITONEUM: There is no lymphadenopathy. BLADDER: No wall thickening or mass. REPRODUCTIVE: Nonspecific prostate enlargement with mass effect at the base of the bladder. INGUINAL: Small fat containing left inguinal hernia. MUSCULOSKELETAL: No abnormal lytic or blastic bony lesions. CONCLUSION: 1. Indeterminate 2.6 cm mass in the posterior right lobe of the liver. This appears new since prior e xam although previous examination was not contrast enhanced. This can be further characterized with M RI examination on outpatient basis. Additional subcentimeter hypodense lesions in segment 4 and 3 of the liver are too small to fully characterize. 2. Mild sigmoid diverticulosis. No significant inflammatory change or gross mass. 3. Trace stable anterior pericardial effusion. 4. Redemonstration of fat-containing left inguinal hernia, multiple bilateral renal cysts and nonobst ructing 8 mm inferior right renal pole calyceal calculus. Jono Campbell MD on October 11, 2017 at 5:10 Board Certified Radiologist. This report was verified electronically.
[2017-10-11] MEDS ORDERED: EPINEPHrine HCL (1:10,000) 1 MG/10 ML SYRINGE OTHER ONE (05:36)
[2017-10-11] MEDS ORDERED: NALOXONE HCL 0.4 MG/ML AMP IV PUSH PRN (05:45)
[2017-10-11] MEDS ORDERED: SODIUM CHLORIDE 0.9% FLUSH 10 ML FLUSH IV FLUSH PRN (05:45)
[2017-10-11] MEDS ORDERED: ONDANSETRON HCL 4 MG/2 ML VIAL IVP PRN (05:45)
[2017-10-11] MEDS: SODIUM CHLORIDE 0.9% FLUSH 10 ML FLUSH IV FLUSH SCH ×2 (08:56→21:00)
--- NOTE | 2017-10-11 09:08 | PD.CONS ---
HPI History of Present Illness This is a 66 year old male with hx peptic who presented to ER with complaint of bleeding with BM. 3 days ago he noticed black tarry stool and yesterday started having copious bright red blood with BMs. He admits prior hx of ulcer, had EGD 06/2017 at [facility] by Dr Ba with finding of duodenal ulcer, h pylori, mild eosinophilic esophagitis. He does not know if he took antibiotics for h pylori after his EGD. He cannot tell me if he has had a colonoscopy. Denies abd pain, unintended weight loss, n/v. Not on blood thinners but he does use ibuprofen daily. (Adilene Hummel) PFSH Past Medical History eosinophilic esohpagitis h pylori duodenal ulcer HTN CHF AF Past Surgical History neck surgery (Adilene Hummel) Coded Allergies: No Known Allergies (Verified Adverse Reaction, Unknown, 10/11/17) Family History denies Social History denies etoh, illicit drugs smokes 1ppd (Adilene Hummel) Review of Systems Constitutional: DENIES: Weight loss Endocrine: DENIES: Polydipsia Eyes: DENIES: Blurred vision Ears, nose, mouth, throat: DENIES: Hearing loss Respiratory: COMPLAINS OF: Cough Cardiovascular: DENIES: Chest pain Gastrointestinal: COMPLAINS OF: Black stools, Bloody stools, DENIES: Abdominal pain, Nausea, Vomiting, Hematemesis Genitourinary: DENIES: Hematuria Musculoskeletal: DENIES: Muscle aches Integumentary: DENIES: Abnormal pigmentation Hematologic/lymphatic: DENIES: Bruising Immunologic/allergic: DENIES: Eczema Neurologic: DENIES: Abnormal gait Psychiatric: DENIES: Anxiety (Adilene Hummel) GI Exam Vitals I&O Vital Signs Date Time Temp Pulse Resp B/P (MAP) Pulse Ox O2 Delivery O2 Flow Rate FiO2 10/11/17 08:24 97.5 95 18 107/55 (72) 96 10/11/17 06:19 98.3 101 14 105/63 (77) 97 10/11/17 06:07 92 20 151/73 (99) 98 10/11/17 06:06 10/11/17 04:15 101 22 96/56 (69) 96 Room Air 10/11/17 03:28 24 10/11/17 03:10 98.7 115 24 119/58 (96) 96 I/O 10/10/17 10/10/17 10/10/17 10/11/17 10/11/17 10/11/17 07:00 15:00 23:00 07:00 15:00 23:00 Intake Total 35 ml Balance 35 ml Intake IV Total 35 ml Imaging Last Impressions Abdomen/Pelvis CT 10/11/17 0320 Signed Impressions: Service Date/Time: Wednesday, October 11, 2017 04:28 - CONCLUSION: 1. Indeterminate 2.6 cm mass in the posterior right lobe of the liver. This appears new since prior exam although previous examination was not contrast enhanced. This can be further characterized with MRI examination on outpatient basis. Additional subcentimeter hypodense lesions in segment 4 and 3 of the liver are too small to fully characterize. 2. Mild sigmoid diverticulosis. No significant inflammatory change or gross mass. 3. Trace stable anterior pericardial effusion. 4. Redemonstration of fat-containing left inguinal hernia, multiple bilateral renal cysts and nonobstructing 8 mm inferior right renal pole calyceal calculus. Jono Campbell MD Laboratory Test 10/11/17 03:30 White Blood Count 9.8 TH/MM3 Red Blood Count 3.32 MIL/MM3 Hemoglobin 9.5 GM/DL Hematocrit 28.6 % Mean Corpuscular Volume 86.1 FL Mean Corpuscular Hemoglobin 28.6 PG Mean Corpuscular Hemoglobin Concent 33.2 % Red Cell Distribution Width 13.9 % Platelet Count 189 TH/MM3 Mean Platelet Volume 9.3 FL Neutrophils (%) (Auto) 55.9 % Lymphocytes (%) (Auto) 34.6 % Monocytes (%) (Auto) 7.1 % Eosinophils (%) (Auto) 1.9 % Basophils (%) (Auto) 0.5 % Neutrophils # (Auto) 5.5 TH/MM3 Lymphocytes # (Auto) 3.4 TH/MM3 Monocytes # (Auto) 0.7 TH/MM3 Eosinophils # (Auto) 0.2 TH/MM3 Basophils # (Auto) 0.0 TH/MM3 CBC Comment DIFF FINAL Differential Comment Prothrombin Time 10.7 SEC Prothromb Time International Ratio 1.1 RATIO Activated Partial Thromboplast Time 22.2 SEC Blood Urea Nitrogen 54 MG/DL Creatinine 1.05 MG/DL Random Glucose 249 MG/DL Total Protein 5.5 GM/DL Albumin 2.9 GM/DL Calcium Level 8.3 MG/DL Alkaline Phosphatase 46 U/L Aspartate Amino Transf (AST/SGOT) 8 U/L Alanine Aminotransferase (ALT/SGPT) 14 U/L Total Bilirubin 0.1 MG/DL Sodium Level 143 MEQ/L Potassium Level 4.4 MEQ/L Chloride Level 107 MEQ/L Carbon Dioxide Level 30.2 MEQ/L Anion Gap 6 MEQ/L Estimat Glomerular Filtration Rate 71 ML/MIN Total Creatine Kinase 56 U/L Troponin I 0.02 NG/ML B-Type Natriuretic Peptide 8 PG/ML Lipase 142 U/L Physical Examination HEENT: PERRL; normocephalic; atraumatic; no jaundice. CHEST: diminished CARDIAC: RRR ABDOMEN: Soft, protuberant, nontender; no hepatosplenomegaly; bowel sounds are present in all four quadrants. EXTREMITIES: No clubbing, cyanosis, or edema. SKIN: Normal; no rash; no jaundice. 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 (Adilene Hummel) Assessment and Plan Plan ASSESSMENT - black tarry stool, BRBPR - 3 days ago had black tarry stool and then jj blood per rectum yesterday. daily use ibuprofen could be ulcer, has hx duodenal ulcer. EGD 06/2016 found irr z line, duodenal ulcer, path h pylori and mild eosinophilic esophagitis. - anemia - normocytic hgb 9.5 on admission. 2/2 above - liver mass - 2.6 cm mass liver seen on CT, also sigmoid diverticulosis, outpt MRI recommended PLAN - EGD today - obtain consent - keep NPO - monitor labs - outpt MRI - outpt colonoscopy - notify GI of active bleeding - further recs to follow pt seen by myself and Dr Carlisle and this note is on his behalf (Adilene Hummel) Plan Patient was seen and examined, agree with above-noted, patient known to have peptic ulcer disease in the past so most likely he has bleeding so we will plan on urgent upper endoscopy today to rule out source of bleeding and treated if possible, last colonoscopy was 2 years ago we will follow up on that as an outpatient Dr. Ba is his Gastrografin (Iliana Carlisle MD) Adilene Hummel Oct 11, 2017 09:08 Iliana Carlisle MD Oct 11, 2017 15:55
--- NOTE | 2017-10-11 09:53 | HHI.HP ---
[facility] No Primary Care Physician Admission Diagnosis GI Bleed Diagnoses: Chief Complaint: Black stool, blood in the stool Travel History International Travel<30 Days: No Contact w/Intl Traveler <30 Da: No Traveled to Known Affected Are: No History of Present Illness Patient is a 66-year-old male with primary medical history of peptic ulcer disease, CHF, HTN, GERD, DM 2 who came into the hospital with complaints of dark stools and blood in the stools. Patient states that about a week ago he's been having dark stools, however yesterday, he noticed that there is blood in his stools. He went to the bathroom about 4 times. He states he feels a lot better right now. Denies any abdominal pain or cramping. Denies any nausea, vomiting, diarrhea. Denies any chest pain, palpitations, shortness of breath, dysuria, headaches, dizziness. Patient states he has peptic ulcer disease prior and he was seen by Dr. Canas and did an EGD and found he had an ulcer. Patient states he was given medications and he was taking it but that was a longtime ago that he is not on that medication anymore. H&H 9.01/08. Review of Systems Constitutional: DENIES: Fever, Chills, Change in appetite Endocrine: DENIES: Heat/cold intolerance Eyes: DENIES: Blurred vision, Eye pain Except as stated in HPI: all other systems reviewed are Neg Past Family Social History Past Medical History eosinophilic esophagitis h pylori duodenal ulcer HTN CHF AF Past Surgical History neck surgery Reported Medications Reported Meds & Active Scripts Active Diltiazem ER 12 HR (Diltiazem HCl) 60 Mg Caper 60 Mg PO BID Metformin (Metformin HCl) 500 Mg Tab 500 Mg PO BIDPC With meals Reported Metformin (Metformin HCl) 500 Mg Tab 500 Mg PO BIDPC With meals Cardizem (Diltiazem HCl) 30 Mg Tab 30 Mg PO BID Allergies: Coded Allergies: No Known Allergies (Verified Adverse Reaction, Unknown, 10/11/17) Active Ordered Medications Current Medications Medications (Trade) Dose Ordered Sig/Kim Route Start Time Stop Time Status Last Admin (NS Flush) 2 ml UNSCH PRN IVF 10/11/17 03:30 Pantoprazole Sodium 80 mg/ Sodium Chloride 100 ml @ 10 mls/hr Q10H IV 10/11/17 03:25 10/11/17 04:08 (NS Flush) 2 ml UNSCH PRN IV FLUSH 10/11/17 05:45 (NS Flush) 2 ml BID IV FLUSH 10/11/17 09:00 (Zofran Inj) 4 mg Q6H PRN IVP 10/11/17 05:45 (Narcan Inj) 0.4 mg UNSCH PRN IV PUSH 10/11/17 05:45 Family History denies Social History denies etoh, illicit drugs smokes 1ppd Physical Exam Vital Signs Vital Signs Date Time Temp Pulse Resp B/P (MAP) Pulse Ox O2 Delivery O2 Flow Rate FiO2 10/11/17 08:24 97.5 95 18 107/55 (72) 96 10/11/17 06:19 98.3 101 14 105/63 (77) 97 10/11/17 06:07 92 20 151/73 (99) 98 10/11/17 06:06 10/11/17 04:15 101 22 96/56 (69) 96 Room Air 10/11/17 03:28 24 10/11/17 03:10 98.7 115 24 119/58 (78) 96 Physical Exam GENERAL: This is a well-nourished, well-developed patient, in no apparent distress. SKIN: No rashes, ecchymoses or lesions. Cool and dry. HEAD: Normocephalic. EYES: Pupils equal round and reactive. Extraocular motions intact. No scleral icterus. No injection or drainage. ENT: Nose without bleeding. Throat without erythema. Uvula midline. Airway patent. NECK: Trachea midline. No JVD or lymphadenopathy. Supple, nontender, no meningeal signs. CARDIOVASCULAR: Regular rate and rhythm without murmurs, gallops, or rubs. RESPIRATORY: Clear to auscultation. Breath sounds equal bilaterally. No wheezes , rales, or rhonchi. GASTROINTESTINAL: Abdomen soft, non-tender, protuberant. Bowel sounds active 4. MUSCULOSKELETAL: Extremities without clubbing, cyanosis, or edema. NEUROLOGICAL: Awake and alert. Cranial nerves II through XII intact. Motor and sensory grossly within normal limits. Normal speech. Laboratory Laboratory Tests Test 10/11/17 03:30 White Blood Count 9.8 Red Blood Count 3.32 Hemoglobin 9.5 Hematocrit 28.6 Mean Corpuscular Volume 86.1 Mean Corpuscular Hemoglobin 28.6 Mean Corpuscular Hemoglobin Concent 33.2 Red Cell Distribution Width 13.9 Platelet Count 189 Mean Platelet Volume 9.3 Neutrophils (%) (Auto) 55.9 Lymphocytes (%) (Auto) 34.6 Monocytes (%) (Auto) 7.1 Eosinophils (%) (Auto) 1.9 Basophils (%) (Auto) 0.5 Neutrophils # (Auto) 5.5 Lymphocytes # (Auto) 3.4 Monocytes # (Auto) 0.7 Eosinophils # (Auto) 0.2 Basophils # (Auto) 0.0 CBC Comment DIFF FINAL Differential Comment Prothrombin Time 10.7 Prothromb Time International Ratio 1.1 Activated Partial Thromboplast Time 22.2 Blood Urea Nitrogen 54 Creatinine 1.05 Random Glucose 249 Total Protein 5.5 Albumin 2.9 Calcium Level 8.3 Alkaline Phosphatase 46 Aspartate Amino Transf (AST/SGOT) 8 Alanine Aminotransferase (ALT/SGPT) 14 Total Bilirubin 0.1 Sodium Level 143 Potassium Level 4.4 Chloride Level 107 Carbon Dioxide Level 30.2 Anion Gap 6 Estimat Glomerular Filtration Rate 71 Total Creatine Kinase 56 Troponin I 0.02 B-Type Natriuretic Peptide 8 Lipase 142 Result Diagram: 10/11/17 0330 10/11/17 0330 Imaging Last Impressions Abdomen/Pelvis CT 10/11/175 Signed Impressions: Service Date/Time: Wednesday, October 11, 2017 04:28 - CONCLUSION: 1. Indeterminate 2.6 cm mass in the posterior right lobe of the liver. This appears new since prior exam although previous examination was not contrast enhanced. This can be further characterized with MRI examination on outpatient basis. Additional subcentimeter hypodense lesions in segment 4 and 3 of the liver are too small to fully characterize. 2. Mild sigmoid diverticulosis. No significant inflammatory change or gross mass. 3. Trace stable anterior pericardial effusion. 4. Redemonstration of fat-containing left inguinal hernia, multiple bilateral renal cysts and nonobstructing 8 mm inferior right renal pole calyceal calculus. MD Anny Julien VTE Risk Assessment Anny VTE Risk Assessment: Mod/High Risk (score >= 2) VTE Pharm Contraindication: Hemorrhage Caprini Risk Assessment Model Point Value = 1 Point Value = 2 Point Value = 3 Point Value = 5 Age 41-60 Minor surgery BMI > 25 kg/m2 Swollen legs Varicose veins or History of unexplained or recurrent spontaneous Oral contraceptives or hormone replacement Sepsis (< 1 month) Serious lung disease, including pneumonia (< 1 month) Abnormal pulmonary function Acute myocardial infarction Congestive heart failure (< 1 month) History of inflammatory bowel disease Medical patient at bed rest Age 61-74 Arthroscopic surgery Major open surgery (> 45 min) Laparoscopic surgery (> 45 min) Malignancy Confined to bed (> 72 hours) Immobilizing plaster cast Central venous access Age >= 75 History of VTE Family history of VTE Factor V Leiden Prothrombin [id number] Lupus anticoagulant Anticardiolipin antibodies Elevated serum homocysteine Heparin-induced thrombocytopenia Other congenital or acquired thrombophilia Stroke (< 1 month) Elective arthroplasty Hip, pelvis, or leg fracture Acute spinal cord injury (< 1 month) Prophylaxis Regimen Total Risk Factor Score Risk Level Prophylaxis Regimen 0-1 Low Early ambulation 2 Moderate Order ONE of the following: *Sequential Compression Device (SCD) *Heparin 5000 units SQ BID 3-4 Higher Order ONE of the following medications: *Heparin 5000 units SQ TID *Enoxaparin/Lovenox 40 mg SQ daily (WT < 150 kg, CrCl > 30 mL/min) *Enoxaparin/Lovenox 30 mg SQ daily (WT < 150 kg, CrCl > 10-29 mL/min) *Enoxaparin/Lovenox 30 mg SQ BID (WT < 150 kg, CrCl > 30 mL/min) AND/OR *Sequential Compression Device (SCD) 5 or more Highest Order ONE of the following medications: *Heparin 5000 units SQ TID (Preferred with Epidurals) *Enoxaparin/Lovenox 40 mg SQ daily (WT < 150 kg, CrCl > 30 mL/min) *Enoxaparin/Lovenox 30 mg SQ daily (WT < 150 kg, CrCl > 10-29 mL/min) *Enoxaparin/Lovenox 30 mg SQ BID (WT < 150 kg, CrCl > 30 mL/min) AND *Sequential Compression Device (SCD) Assessment and Plan Problem List: (1) GI bleed ICD Code: K92.2 - Gastrointestinal hemorrhage, unspecified Status: Acute (2) Liver mass ICD Code: R16.0 - Hepatomegaly, not elsewhere classified Status: Acute (3) Hypertension ICD Code: I10 - Essential (primary) hypertension Status: Chronic (4) Diabetes mellitus ICD Code: E11.9 - Type 2 diabetes mellitus without complications Status: Acute (5) CHF (congestive heart failure) ICD Code: I50.9 - Heart failure, unspecified Status: Chronic (6) Melena ICD Code: K92.1 - Melena Status: Acute Assessment and Plan Patient is a 66-year-old male with primary medical history of peptic ulcer disease, CHF, HTN, GERD, DM 2 who came into the hospital with complaints of dark stools and blood in the stools. Possible GI bleed Peptic ulcer disease, history - H&H dropped from 06/2017 reading 14.2 -->9.5 - GI consult. Previously seen Dr. Canas with EGD colonoscopy pouch he has peptic ulcer - Protonix IV for now - Nothing by mouth, IVF gentle hydration History of A. fib CHF, exacerbation - On diltiazem 30 mg twice a day DM 2 - Hold metformin for now. Insulin sliding scale - Monitor Accu-Cheks. Monitor for hypoglycemia. DVT prop SCD Code Status Full code Discussed Condition With Patient, nursing Problem Qualifiers (1) GI bleed: Qualified Codes: K92.1 - Melena Jeovany Sutherland Oct 11, 2017 09:53
[2017-10-11] MEDS ORDERED: DEXTROSE 50% IN WATER 50 ML VIAL(D50) IV PUSH PRN (10:30)
[2017-10-11] MEDS ORDERED: GLUCAGON 1 MG/ML VIAL OTHER PRN (10:30)
[2017-10-11] MEDS ORDERED: LACTATED RINGER'S 1000 ML IV PRN (11:00)
[2017-10-11] MEDS ORDERED: CHLORHEXIDINE GLUCONATE 2 % 1 PACK (2 CLOTHS) TOPICAL PRN (11:00)
[2017-10-11] MEDS ORDERED: METOPROLOL TARTRATE 25 MG TAB PO PRN (11:00)
[2017-10-11] MEDS ORDERED: POVIDONE IODINE 5% (ANTISEPSIS KIT) 4 APPLICATIONS EACH NARE PRN (11:00)
[2017-10-11] MEDS ORDERED: SODIUM CHLORID 0.9% 500 ML IV PRN (11:00)
[2017-10-11] MEDS: SODIUM CHLOR 0.9% 1000 ML INJ 1,000 ML IV SCH (11:04)
--- NOTE | 2017-10-11 11:38 | EKG ---
Date Performed: 10/11/2017 Time Performed: 03:13:18 PTAGE: 66 years EKG: Sinus tachycardia ST DEVIATION AND MODERATE T-WAVE ABNORMALITY, CONSIDER LATERAL ISCHEMIA S T DEVIATION AND MODERATE T-WAVE ABNORMALITY, CONSIDER INFERIOR ISCHEMIA ABNORMAL ECG Compared to prio r tracing, the rate is faster. ST segment depression in the lateral leads is somewhat more prominent . DOCTOR: Kaveh Chowdary Interpretating Date/Time 10/11/2017 11:54:41
[2017-10-11] MEDS ORDERED: PHENYLEPH/NS 1000 MCG/10 ML SYR IV ONE (12:00)
[2017-10-11] MEDS: INSULIN ASPART SUPPLEMENTAL SCALE SQ SCH ×3 (12:00→21:00)
[2017-10-11] MEDS ORDERED: LIDOCAINE HCL 1% PF 5 ML SYRINGE OTHER ONE (12:00)
[2017-10-11] MEDS ORDERED: PROPOFOL 200 MG/20 ML AMP IV ONE (12:00)
[2017-10-11] MEDS: NICOTINE 14 MG/24 HR PATCH T-DERMAL SCH (13:00)
--- NOTE | 2017-10-11 15:49 | PD.PROCEDR ---
GI Procedure PROCEDURE PERFORMED Upper endoscopy with bleeding control by injection of epinephrine and cauterization of an ulcer INDICATION FOR PROCEDURE GI bleed PROCEDURE: The procedure, risks and benefits were discussed with Mr. Harrison and informed consent was obtained. Anesthesia sedated him with Diprivan. He was placed in the left lateral decubitus position. EGD: The Pentax videoscope was introduced through the oropharynx and advanced to the second portion of the duodenum under direct visualization. There was a large actively bleeding ulcer in the duodenal bulb this was cauterized with Gold probe multiple application and injected with 5 cc of epinephrine with complete resolution of the bleeding . Scope withdrawal back to the stomach Retroflexion was performed in the stomach. ESTIMATED BLOOD LOSS: 15-20 cc SPECIMENS REMOVED: None COMPLICATIONS: None IMPRESSION: Large duodenal ulcer in the bulb which was actively bleeding this was cauterized and injected with good bleeding control PLAN: Keep patient nothing by mouth No NSAIDs Protonix 40 mg daily Check stool for H. pylori Monitor H&H with packed RBC as needed Iliana Carlisle MD Oct 11, 2017 15:49
[2017-10-11] MEDS ORDERED: DO NOT ADM ANY ANTICOAGULANT DRUGS PRN (16:00)
[2017-10-11 19:01] LABS: HEMATOCRIT 21.4 % (39.0-51.0); HEMOGLOBIN 7.2 GM/DL (13.0-17.0)
[2017-10-12] VITALS (13 sets, daily range): BP systolic 118–187; BP diastolic 58–86; PULSE 86–112; RESP 16–22; TEMP 97.6–98.8; O2SAT 95–98
[2017-10-12] MEDS: PANTOPRAZOLE INJ 80 MG in SODIUM CHLORIDE 0.9% INJ 100 ML IV SCH (00:30)
[2017-10-12] MEDS: SODIUM CHLOR 0.9% 1000 ML INJ 1,000 ML IV SCH (05:29)
[2017-10-12 07:05] LABS: AUTOMATED NEUTROPHIL # 4.9 TH/MM3 (1.8-7.7); BASOPHIL % 0.6 % (0.0-2.0); EOSINOPHIL # 0.1 TH/MM3 (0-0.4); EOSINOPHIL % 1.7 % (0.0-4.0); LYMPH % 22.8 % (9.0-44.0); LYMPHOCYTE # 1.6 TH/MM3 (1.0-4.8); MEAN CELL VOLUME 86.2 FL (80.0-100.0); MEAN CORPUSCULAR HGB CONC 34.8 % (32.0-36.0); MEAN PLATELET VOLUME 8.9 FL (7.0-11.0); MONO % 6.4 % (0.0-8.0); MONOCYTE # 0.5 TH/MM3 (0-0.9); NEUT % 68.5 % (16.0-70.0); PLATELET COUNT 148 TH/MM3 (150-450); RED BLOOD COUNT 2.33 MIL/MM3 (4.50-5.90); RED CELL DISTRIBUTION WIDTH 14.2 % (11.6-17.2); WHITE BLOOD COUNT 7.1 TH/MM3 (4.0-11.0)
[2017-10-12 07:24] LABS: HEMATOCRIT 20.1 % (39.0-51.0)
[2017-10-12 07:35] LABS: BICARBONATE 30.7 MEQ/L (21.0-32.0); CALCIUM 8.2 MG/DL (8.5-10.1); CREATININE 0.92 MG/DL (0.60-1.30)
[2017-10-12] MEDS ORDERED: FUROSEMIDE 20 MG/2 ML VIAL IV PUSH ONE (07:45)
[2017-10-12] MEDS ORDERED: SODIUM CHLOR 0.9% 250 ML INJ 250 ML IV ONE (07:45)
[2017-10-12] MEDS: INSULIN ASPART SUPPLEMENTAL SCALE SQ SCH ×4 (08:30→21:00)
[2017-10-12] MEDS: SODIUM CHLORIDE 0.9% FLUSH 10 ML FLUSH IV FLUSH SCH ×2 (09:00→21:00)
[2017-10-12] MEDS: NICOTINE 14 MG/24 HR PATCH T-DERMAL SCH (09:00)
[2017-10-12] MEDS: REMOVE OLD PATCH T-DERMAL SCH (09:00)
--- NOTE | 2017-10-12 10:00 | HHI.PR ---
Subjective Remarks Follow-up visit GI bleed, status post EGD. Patient seen and examined today lying in bed. States he is doing well although he got dizzy when he got out of bed to urinate. Discuss with patient blood count today was on the low side and that he will need transfusion. Agrees with the plan. Denies pain and discomfort. Denies SOB/ dyspnea. Denies chest pain, palpitations, headaches, dizziness. Denies fevers, chills, n/v/d. Denies dysuria. Objective Vitals Vital Signs Date Time Temp Pulse Resp B/P (MAP) Pulse Ox O2 Delivery O2 Flow Rate FiO2 10/12/17 08:36 97.6 100 18 121/58 (79) 96 10/12/17 05:02 98.2 95 16 118/58 (78) 98 10/12/17 04:15 104 10/12/17 00:46 98.7 99 16 134/61 (85) 95 10/12/17 00:05 98 10/11/17 17:01 98.4 97 18 124/59 (80) 96 10/11/17 16:30 98.1 98 23 117/59 (78) 96 Room Air 10/11/17 16:20 Room Air 10/11/17 16:15 90 23 132/64 (86) 98 Nasal Cannula 2 10/11/17 16:10 Nasal Cannula 2 10/11/17 16:00 93 26 124/67 (86) 95 Nasal Cannula 5 10/11/17 15:59 98.2 93 16 120/66 (84) 96 Nasal Cannula 5 10/11/17 11:51 97.6 100 20 116/59 (78) 97 I/O 10/11/17 10/11/17 10/11/17 10/12/17 10/12/17 10/12/17 07:00 15:00 23:00 07:00 15:00 23:00 Intake Total 35 ml 300 ml Output Total 750 ml Balance 35 ml 300 ml -750 ml Intake Oral 0 ml IV Total 35 ml 0 ml Other 300 ml Output Urine Total 750 ml # Voids 0 4 # Bowel Movements 1 1 Result Diagram: 10/12/17 0635 10/12/17 0635 Imaging Last Impressions Abdomen/Pelvis CT 10/11/17 0325 Signed Impressions: Service Date/Time: Wednesday, October 11, 2017 04:28 - CONCLUSION: 1. Indeterminate 2.6 cm mass in the posterior right lobe of the liver. This appears new since prior exam although previous examination was not contrast enhanced. This can be further characterized with MRI examination on outpatient basis. Additional subcentimeter hypodense lesions in segment 4 and 3 of the liver are too small to fully characterize. 2. Mild sigmoid diverticulosis. No significant inflammatory change or gross mass. 3. Trace stable anterior pericardial effusion. 4. Redemonstration of fat-containing left inguinal hernia, multiple bilateral renal cysts and nonobstructing 8 mm inferior right renal pole calyceal calculus. Jono Campbell MD Objective Remarks GENERAL: This is a well-nourished, well-developed patient, in no apparent distress. SKIN: No rashes, ecchymoses or lesions. Cool and dry. HEAD: Normocephalic. EYES: Pupils equal round and reactive. Extraocular motions intact. No scleral icterus. No injection or drainage. ENT: Nose without bleeding. Throat without erythema. Uvula midline. Airway patent. NECK: Trachea midline. No JVD or lymphadenopathy. Supple, nontender, no meningeal signs. CARDIOVASCULAR: Regular rate and rhythm without murmurs, gallops, or rubs. RESPIRATORY: Clear to auscultation. Breath sounds equal bilaterally. No wheezes , rales, or rhonchi. GASTROINTESTINAL: Abdomen soft, non-tender, protuberant. Bowel sounds active 4. MUSCULOSKELETAL: Extremities without clubbing, cyanosis, or edema. NEUROLOGICAL: Awake and alert. Cranial nerves II through XII intact. Motor and sensory grossly within normal limits. Normal speech. A/P Problem List: (1) GI bleed ICD Code: K92.2 - Gastrointestinal hemorrhage, unspecified Status: Acute (2) Liver mass ICD Code: R16.0 - Hepatomegaly, not elsewhere classified Status: Acute (3) Hypertension ICD Code: I10 - Essential (primary) hypertension Status: Chronic (4) Diabetes mellitus ICD Code: E11.9 - Type 2 diabetes mellitus without complications Status: Acute (5) CHF (congestive heart failure) ICD Code: I50.9 - Heart failure, unspecified Status: Chronic (6) Melena ICD Code: K92.1 - Melena Status: Acute Assessment and Plan Patient is a 66-year-old male with primary medical history of peptic ulcer disease, CHF, HTN, GERD, DM 2 who came into the hospital with complaints of dark stools and blood in the stools. S/P EGD 10/11/17 GI bleed, Acute Peptic ulcer disease, history - H&H dropped from 06/2017 reading 14.2 -->9.5 - GI consult. Previously seen Dr. Canas with EGD colonoscopy he has peptic ulcer - Protonix IV for now - Nothing by mouth. - Low H/H 7.0/20.1. 2 units packed RBC ordered for transfusion. - Dr. Carlisle saw the patient and plans to do repeat EGD today. History of A. fib CHF, exacerbation - On diltiazem 30 mg twice a day DM 2 - Hold metformin for now. Insulin sliding scale - Monitor Accu-Cheks. Monitor for hypoglycemia. DVT prop SCD, pharmacologic prophylaxis contraindicated secondary to bleeding Discharge Planning Not ready for discharge. Problem Qualifiers (1) GI bleed: Qualified Codes: K92.1 - Jeovany Nazario Oct 12, 2017 10:00
[2017-10-12] MEDS: PANTOPRAZOLE SODIUM 40 MG VIAL IV PUSH SCH (11:25)
[2017-10-12] MEDS ORDERED: LIDOCAINE HCL 1% PF 5 ML SYRINGE OTHER ONE (12:00)
[2017-10-12] MEDS ORDERED: PROPOFOL 200 MG/20 ML AMP IV ONE (12:00)
--- NOTE | 2017-10-12 13:04 | HHI.GIFU ---
Subjective Remarks Pt resting in bed. somewhat lethargic. Having melanotic stool. (Adilene Hummel) Objective Vitals I&O Vital Signs Date Time Temp Pulse Resp B/P (MAP) Pulse Ox O2 Delivery O2 Flow Rate FiO2 10/12/17 12:27 98.8 112 22 187/86 96 10/12/17 08:36 97.6 100 18 121/58 (79) 96 10/12/17 05:02 98.2 95 16 118/58 (78) 98 10/12/17 04:15 104 10/12/17 00:46 98.7 99 16 134/61 (85) 95 10/12/17 00:05 98 10/11/17 17:01 98.4 97 18 124/59 (80) 96 10/11/17 16:30 98.1 98 23 117/59 (78) 96 Room Air 10/11/17 16:20 Room Air 10/11/17 16:15 90 23 132/64 (86) 98 Nasal Cannula 2 10/11/17 16:10 Nasal Cannula 2 10/11/17 16:00 93 26 124/67 (86) 95 Nasal Cannula 5 10/11/17 15:59 98.2 93 16 120/66 (84) 96 Nasal Cannula 5 I/O 10/11/17 10/11/17 10/11/17 10/12/17 10/12/17 10/12/17 07:00 15:00 23:00 07:00 15:00 23:00 Intake Total 35 ml 300 ml 10 ml Output Total 750 ml Balance 35 ml 300 ml -750 ml 10 ml Intake Oral 0 ml IV Total 35 ml 0 ml Blood Product IV Normal Saline Flush 10 ml Other 300 ml Output Urine Total 750 ml # Voids 0 4 # Bowel Movements 1 1 Laboratory Laboratory Tests Test 10/11/17 17:48 10/12/17 06:35 Hemoglobin 7.2 7.0 Hematocrit 21.4 20.1 White Blood Count 7.1 Red Blood Count 2.33 Mean Corpuscular Volume 86.2 Mean Corpuscular Hemoglobin 30.0 Mean Corpuscular Hemoglobin Concent 34.8 Red Cell Distribution Width 14.2 Platelet Count 148 Mean Platelet Volume 8.9 Neutrophils (%) (Auto) 68.5 Lymphocytes (%) (Auto) 22.8 Monocytes (%) (Auto) 6.4 Eosinophils (%) (Auto) 1.7 Basophils (%) (Auto) 0.6 Neutrophils # (Auto) 4.9 Lymphocytes # (Auto) 1.6 Monocytes # (Auto) 0.5 Eosinophils # (Auto) 0.1 Basophils # (Auto) 0.0 CBC Comment DIFF FINAL Differential Comment Blood Urea Nitrogen 36 Creatinine 0.92 Random Glucose 173 Calcium Level 8.2 Sodium Level 148 Potassium Level 3.9 Chloride Level 113 Carbon Dioxide Level 30.7 Anion Gap 4 Estimat Glomerular Filtration Rate 83 Imaging Last Impressions Abdomen/Pelvis CT 10/11/17 0325 Signed Impressions: Service Date/Time: Monday, October 11, 2017 04:28 - CONCLUSION: 1. Indeterminate 2.6 cm mass in the posterior right lobe of the liver. This appears new since prior exam although previous examination was not contrast enhanced. This can be further characterized with MRI examination on outpatient basis. Additional subcentimeter hypodense lesions in segment 4 and 3 of the liver are too small to fully characterize. 2. Mild sigmoid diverticulosis. No significant inflammatory change or gross mass. 3. Trace stable anterior pericardial effusion. 4. Redemonstration of fat-containing left inguinal hernia, multiple bilateral renal cysts and nonobstructing 8 mm inferior right renal pole calyceal calculus. Jono Campbell MD Physical Exam HEENT: normocephalic; atraumatic; no jaundice. CHEST: CTA CARDIAC: RRR ABDOMEN: Soft, protuberant, nontender; no hepatosplenomegaly; bowel sounds are present in all four quadrants. black stool seen on sheets EXTREMITIES: No clubbing, cyanosis, or edema. SKIN: Normal; no rash; no jaundice. INVESTMENT CONSULTANT: lethargic (Adilene Hummel TOOLING SUPERVISOR) Assessment and Plan Plan ASSESSMENT - black tarry stool, BRBPR - 3 days ago had black tarry stool and then jj blood per rectum yesterday. daily use ibuprofen could be ulcer, has hx duodenal ulcer. EGD 06/2016 found irr z line, duodenal ulcer, path h pylori and mild eosinophilic esophagitis. - anemia - normocytic hgb 9.5 on admission. / above - liver mass - 2.6 cm mass liver seen on CT, also sigmoid diverticulosis, outpt MRI recommended 10/12/17 s/p 10/11/17 EGD found bleeding ulcer that was cauterized and injected with good hemostasis achieved. pt having melanotic stool and his hh trending down, will need EGD again. hgb 7.0, blood transfusing. PLAN - EGD today - obtain consent - if bleeding not controlled during EGD will need IR consult - monitor labs - outpt MRI - outpt colonoscopy - further recs to follow pt seen by myself and Dr Carlisle and this note is on his behalf (Adilene Hummel) Plan Patient was seen and examined, agree with above-noted, we will plan on repeating upper endoscopy with possible clipping give there is any active bleeding in the duodenum and bulb, if unable to control the bleeding didn't patient will need interventional radiology to do embolization, continue supportive care and give patient back RBC as needed (Iliana Carlisle MD) Adilene Hummel Oct 12, 2017 13:04 Iliana Carlisle MD Oct 12, 2017 13:40
[2017-10-12] MEDS ORDERED: EPINEPHrine HCL (1:1000) 1 MG/ML VIAL SQ ONE (15:10)
--- NOTE | 2017-10-12 18:20 | PD.PROCEDR ---
GI Procedure PROCEDURE PERFORMED EGD with clip placement and epinephrine injection and cautery INDICATION FOR PROCEDURE GI bleed, duodenal ulcer PROCEDURE: The procedure, risks and benefits were discussed with Ms. Nixon and informed consent was obtained. Anesthesia sedated her with Diprivan. She was placed in the left lateral decubitus position. EGD: The Pentax videoscope was introduced through the oropharynx and advanced to the second portion of the duodenum under direct visualization. Retroflexion was performed in the stomach. FINDINGS: The esophagus this appeared to be unremarkable and within normal limits The stomach this too appeared to be unremarkable and within normal limits The duodenum there was a small ulcer at the duodenal sweep with edema it was not quite clear but there was certainly an adherent clot and oozing of fresh blood this was cleared and 2 clips were placed in addition to injection of 4 cc of epinephrine and cautery No further bleeding was seen ESTIMATED BLOOD LOSS: Minimal SPECIMENS REMOVED: None COMPLICATIONS: None IMPRESSION: Bleeding duodenal ulcer PLAN: Continue with current supportive care Continue with PPI twice daily Avoid NSAIDs and aspirin Avoid anticoagulation Repeat EGD in 2 months Grant Ba MD Oct 12, 2017 18:20
[2017-10-13] VITALS (11 sets, daily range): BP systolic 130–175; BP diastolic 60–94; PULSE 90–100; RESP 16–24; TEMP 97.5–98.6; O2SAT 95–100
[2017-10-13] MEDS: SODIUM CHLOR 0.9% 1000 ML INJ 1,000 ML IV SCH (02:17)
[2017-10-13 07:24] LABS: HEMATOCRIT 21.4 % (39.0-51.0); HEMOGLOBIN 7.2 GM/DL (13.0-17.0); MEAN CELL VOLUME 85.4 FL (80.0-100.0); MEAN CORPUSCULAR HEMOGLOBIN 28.9 PG (27.0-34.0); MEAN CORPUSCULAR HGB CONC 33.9 % (32.0-36.0); MEAN PLATELET VOLUME 8.8 FL (7.0-11.0); PLATELET COUNT 135 TH/MM3 (150-450); RED CELL DISTRIBUTION WIDTH 15.7 % (11.6-17.2); WHITE BLOOD COUNT 7.3 TH/MM3 (4.0-11.0)
[2017-10-13 07:41] LABS: BICARBONATE 28.2 MEQ/L (21.0-32.0); CALCIUM 8.2 MG/DL (8.5-10.1); CREATININE 0.93 MG/DL (0.60-1.30)
[2017-10-13] MEDS ORDERED: FUROSEMIDE 20 MG/2 ML VIAL IV PUSH ONE (07:45)
[2017-10-13] MEDS ORDERED: SODIUM CHLOR 0.9% 250 ML INJ 250 ML IV ONE (07:45)
[2017-10-13] MEDS: INSULIN ASPART SUPPLEMENTAL SCALE SQ SCH ×4 (08:00→22:05)
[2017-10-13] MEDS: SODIUM CHLORIDE 0.9% FLUSH 10 ML FLUSH IV FLUSH SCH ×2 (09:00→22:05)
[2017-10-13] MEDS: REMOVE OLD PATCH T-DERMAL SCH (09:00)
--- NOTE | 2017-10-13 09:01 | HHI.GIFU ---
Subjective Remarks pt resting in bed, blood transfusing. He had some black tarry stool after his procedure but says it is improving and much better than before. (Adilene Hummel) Objective Vitals I&O Vital Signs Date Time Temp Pulse Resp B/P (MAP) Pulse Ox O2 Delivery O2 Flow Rate FiO2 10/13/17 08:39 98.4 94 18 140/75 96 10/13/17 08:25 97.6 100 18 133/65 97 10/13/17 07:24 98.1 98 20 163/85 (111) 98 10/13/17 03:48 97.5 90 16 130/60 (83) 100 10/12/17 23:42 98.1 96 20 138/70 (92) 98 10/12/17 23:15 86 10/12/17 20:16 97.9 96 20 127/67 (87) 96 10/12/17 19:10 98.4 96 20 126/64 98 10/12/17 18:30 98.1 99 22 120/58 97 10/12/17 17:16 98.1 99 18 120/58 (78) 97 10/12/17 15:35 98.1 81 20 141/64 (89) 100 10/12/17 15:10 81 141/64 10/12/17 13:02 98.7 102 22 142/72 96 10/12/17 12:27 98.8 112 22 187/86 96 I/O 10/12/17 10/12/17 10/12/17 10/13/17 10/13/17 10/13/17 06:59 14:59 22:59 06:59 14:59 22:59 Intake Total 10 ml 1055 ml 2000 ml Output Total 750 ml 1250 ml Balance -750 ml 10 ml 1055 ml 750 ml Intake Oral 20 ml 2000 ml Packed Cells 800 ml Blood Product IV Normal Saline Flush 10 ml 35 ml Other 200 ml Output Urine Total 750 ml 1250 ml # Voids 4 # Bowel Movements 1 Laboratory Laboratory Tests Test 10/13/17 05:56 White Blood Count 7.3 Red Blood Count 2.50 Hemoglobin 7.2 Hematocrit 21.4 Mean Corpuscular Volume 85.4 Mean Corpuscular Hemoglobin 28.9 Mean Corpuscular Hemoglobin Concent 33.9 Red Cell Distribution Width 15.7 Platelet Count 135 Mean Platelet Volume 8.8 Blood Urea Nitrogen 20 Creatinine 0.93 Random Glucose 199 Calcium Level 8.2 Sodium Level 144 Potassium Level 3.5 Chloride Level 109 Carbon Dioxide Level 28.2 Anion Gap 7 Estimat Glomerular Filtration Rate 82 Imaging Last Impressions Abdomen/Pelvis CT 10/11/17 0325 Signed Impressions: Service Date/Time: Wednesday, October 11, 2017 04:28 - CONCLUSION: 1. Indeterminate 2.6 cm mass in the posterior right lobe of the liver. This appears new since prior exam although previous examination was not contrast enhanced. This can be further characterized with MRI examination on outpatient basis. Additional subcentimeter hypodense lesions in segment 4 and 3 of the liver are too small to fully characterize. 2. Mild sigmoid diverticulosis. No significant inflammatory change or gross mass. 3. Trace stable anterior pericardial effusion. 4. Redemonstration of fat-containing left inguinal hernia, multiple bilateral renal cysts and nonobstructing 8 mm inferior right renal pole calyceal calculus. Jono Campbell MD Physical Exam HEENT: normocephalic; atraumatic; no jaundice. CHEST: CTA CARDIAC: RRR ABDOMEN: Soft, protuberant, nontender; no hepatosplenomegaly; bowel sounds are present in all four quadrants. black stool seen on sheets EXTREMITIES: No clubbing, cyanosis, or edema. SKIN: Normal; no rash; no jaundice. SEAM TAPER MACHINE: more alert today (Adilene Hummel DIRECTOR REGULATORY COMPLIANCE) Assessment and Plan Plan ASSESSMENT - black tarry stool, BRBPR - 3 days ago had black tarry stool and then jj blood per rectum yesterday. daily use ibuprofen could be ulcer, has hx duodenal ulcer. EGD 06/2016 found irr z line, duodenal ulcer, path h pylori and mild eosinophilic esophagitis. - anemia - normocytic hgb 9.5 on admission. 2/2 above - liver mass - 2.6 cm mass liver seen on CT, also sigmoid diverticulosis, outpt MRI recommended 10/12/17 s/p 10/11/17 EGD found bleeding ulcer that was cauterized and injected with good hemostasis achieved. pt having melanotic stool and his hh trending down, will need EGD again. hgb 7.0, blood transfusing. 10/13/17 s/p repeat EGD found bleeding duodenal ulcer, clip applied, epi injected, cauterized. per pt melena improving. hgb 7.2 after 2 x PRBC, 2 more units pending PLAN - clear liquids - if bleeding IR consult - monitor labs - outpt MRI - outpt colonoscopy - EGD 2 months - BID PPI - avoid anticoagulation, NSAIDs, asa pt seen by myself and Dr Carlisle and this note is on his behalf (Adilene Hummel) Plan Patient was seen and examined, agree with the above note, feeling much better no dizziness no lightheaded still some black stool, we will monitor H&H if he drops it again or any sign of active bleeding he will need interventional radiology for embolization of the duodenal ulcer (Iliana Carlisle MD) Adilene Hummel Oct 13, 2017 09:01 Iliana Carlisle MD Oct 13, 2017 17:21
[2017-10-13] MEDS: NICOTINE 14 MG/24 HR PATCH T-DERMAL SCH (09:02)
--- NOTE | 2017-10-13 09:31 | HHI.PR ---
Subjective Remarks Follow-up visit GI bleed, status post EGD x2. Patient seen and examined today lying in bed. States he is doing okay now. Small BM dark but states no active bleeding as per patient. Denies pain and discomfort. Denies SOB/ dyspnea. Denies chest pain, palpitations, headaches, dizziness. Denies fevers, chills, n/ v/d. Denies dysuria. Objective Vitals Vital Signs Date Time Temp Pulse Resp B/P (MAP) Pulse Ox O2 Delivery O2 Flow Rate FiO2 10/13/17 08:39 98.4 94 18 140/75 96 10/13/17 08:25 97.6 100 18 133/65 97 10/13/17 07:24 98.1 98 20 163/85 (111) 98 10/13/17 03:48 97.5 90 16 130/60 (83) 100 10/12/17 23:42 98.1 96 20 138/70 (92) 98 10/12/17 23:15 86 10/12/17 20:16 97.9 96 20 127/67 (87) 96 10/12/17 19:10 98.4 96 20 126/64 98 10/12/17 18:30 98.1 99 22 120/58 97 10/12/17 17:16 98.1 99 18 120/58 (78) 97 10/12/17 15:35 98.1 81 20 141/64 (89) 100 10/12/17 15:10 81 141/64 10/12/17 13:02 98.7 102 22 142/72 96 10/12/17 12:27 98.8 112 22 187/86 96 I/O 10/12/17 10/12/17 10/12/17 10/13/17 10/13/17 10/13/17 07:00 15:00 23:00 07:00 15:00 23:00 Intake Total 10 ml 1055 ml 2000 ml Output Total 750 ml 1250 ml Balance -750 ml 10 ml 1055 ml 750 ml Intake Oral 20 ml 2000 ml Packed Cells 800 ml Blood Product IV Normal Saline Flush 10 ml 35 ml Other 200 ml Output Urine Total 750 ml 1250 ml # Voids 4 # Bowel Movements 1 Result Diagram: 10/13/17 0556 10/13/17 0556 Imaging Last Impressions Abdomen/Pelvis CT 10/11/17 0325 Signed Impressions: Service Date/Time: Wednesday, October 11, 2017 04:28 - CONCLUSION: 1. Indeterminate 2.6 cm mass in the posterior right lobe of the liver. This appears new since prior exam although previous examination was not contrast enhanced. This can be further characterized with MRI examination on outpatient basis. Additional subcentimeter hypodense lesions in segment 4 and 3 of the liver are too small to fully characterize. 2. Mild sigmoid diverticulosis. No significant inflammatory change or gross mass. 3. Trace stable anterior pericardial effusion. 4. Redemonstration of fat-containing left inguinal hernia, multiple bilateral renal cysts and nonobstructing 8 mm inferior right renal pole calyceal calculus. Jono Campbell MD Objective Remarks GENERAL: This is a well-nourished, well-developed patient, in no apparent distress. SKIN: No rashes, ecchymoses or lesions. Cool and dry. HEAD: Normocephalic. EYES: Pupils equal round and reactive. Extraocular motions intact. No scleral icterus. No injection or drainage. ENT: Nose without bleeding. Throat without erythema. Uvula midline. Airway patent. NECK: Trachea midline. CARDIOVASCULAR: Regular rate and rhythm without murmurs, gallops, or rubs. RESPIRATORY: Clear to auscultation. Breath sounds equal bilaterally. No wheezes , rales, or rhonchi. GASTROINTESTINAL: Abdomen soft, non-tender, protuberant. Bowel sounds active 4. MUSCULOSKELETAL: Extremities without clubbing, cyanosis, or edema. NEUROLOGICAL: Awake and alert. Cranial nerves II through XII intact. Motor and sensory grossly within normal limits. Normal speech. Procedures EGD x2 A/P Problem List: (1) GI bleed ICD Code: K92.2 - Gastrointestinal hemorrhage, unspecified Status: Acute (2) Liver mass ICD Code: R16.0 - Hepatomegaly, not elsewhere classified Status: Acute (3) Hypertension ICD Code: I10 - Essential (primary) hypertension Status: Chronic (4) Diabetes mellitus ICD Code: E11.9 - Type 2 diabetes mellitus without complications Status: Acute (5) CHF (congestive heart failure) ICD Code: I50.9 - Heart failure, unspecified Status: Chronic (6) Melena ICD Code: K92.1 - Melena Status: Acute Assessment and Plan Patient is a 66-year-old male with primary medical history of peptic ulcer disease, CHF, HTN, GERD, DM 2 who came into the hospital with complaints of dark stools and blood in the stools. S/P EGD 10/11/17 GI bleed, Acute Peptic ulcer disease, history - H&H dropped from 06/2017 reading 14.2 -->9.5 - GI consult. Previously seen Dr. Canas with EGD colonoscopy he has peptic ulcer - Protonix 40 PO BID per GI, Repeat EGD in 2 mos, MRI outpatient. - Nothing by mouth. - Low H/H 7.0/20.1. 2 units packed RBC ordered for transfusion, yesterday. EGD repeat 10/12/17 - Patient h/h continues to be low. 2 more units of blood ordered. Repeat H& H posttransfusion. - Monitor for signs of bleeding. Avoid NSAIDs, anticoagulants, ASA. History of A. fib CHF, exacerbation - On diltiazem 30 mg twice a day DM 2 - Hold metformin for now. Insulin sliding scale - Monitor Accu-Cheks. Monitor for hypoglycemia. DVT prop SCD, pharmacologic prophylaxis contraindicated secondary to bleeding Discharge Planning Not ready for discharge. Problem Qualifiers (1) GI bleed: Qualified Codes: K92.1 - Jeovany Nazario Oct 13, 2017 09:31
[2017-10-13] MEDS: PANTOPRAZOLE SODIUM 40 MG VIAL IV PUSH SCH (10:52)
[2017-10-13] MEDS ORDERED: DILTIAZEM HCL 30 MG TAB PO SCH (14:30)
[2017-10-13] MEDS: PANTOPRAZOLE SOD 40 MG DELAYED RELEASE TAB PO SCH ×2 (15:51→22:05)
[2017-10-13 17:02] LABS: HEMOGLOBIN 8.7 GM/DL (13.0-17.0)
[2017-10-13] MEDS ORDERED: NICO14DI23 T-DERMAL (17:20)
[2017-10-13] MEDS ORDERED: PANT40TA3 PO (17:20)
[2017-10-13] MEDS ORDERED: DILTIAZEM 60 MG PO SCH (21:00)
[2017-10-14 00:24] VITALS: BP 134/63; PULSE 90; RESP 18; TEMP 98.2; O2SAT 97
[2017-10-14 01:37] VITALS: PULSE 12
[2017-10-14 05:01] VITALS: BP 150/75; PULSE 94; RESP 18; TEMP 98.3; O2SAT 94
[2017-10-14 07:32] LABS: HEMATOCRIT 25.9 % (39.0-51.0); MEAN CELL VOLUME 84.5 FL (80.0-100.0); MEAN CORPUSCULAR HEMOGLOBIN 29.4 PG (27.0-34.0); MEAN CORPUSCULAR HGB CONC 34.8 % (32.0-36.0); MEAN PLATELET VOLUME 8.6 FL (7.0-11.0); PLATELET COUNT 146 TH/MM3 (150-450); RED BLOOD COUNT 3.07 MIL/MM3 (4.50-5.90); RED CELL DISTRIBUTION WIDTH 15.4 % (11.6-17.2); WHITE BLOOD COUNT 6.6 TH/MM3 (4.0-11.0)
[2017-10-14 07:50] VITALS: BP 168/88; PULSE 85; RESP 24; TEMP 97.5; O2SAT 95
--- NOTE | 2017-10-14 08:51 | HHI.GIFU ---
Subjective Remarks Feeling better, had BM this morning that was brown. Tolerating diet. (Adilene Hummel) Objective Vitals I&O Vital Signs Date Time Temp Pulse Resp B/P (MAP) Pulse Ox O2 Delivery O2 Flow Rate FiO2 10/14/17 07:50 97.5 85 24 168/88 (114) 95 10/14/17 05:01 98.3 94 18 150/75 (100) 94 10/14/17 01:37 12 10/14/17 00:24 98.2 90 18 134/63 (86) 97 10/13/17 19:53 98.6 93 18 133/68 (89) 95 10/13/17 15:12 98.4 95 24 175/94 (121) 97 10/13/17 15:00 98 10/13/17 11:51 98.0 97 24 154/83 (106) 96 10/13/17 11:21 98.1 97 18 150/67 97 10/13/17 11:04 98.0 96 18 149/84 97 I/O 10/13/17 10/13/17 10/13/17 10/14/17 10/14/17 10/14/17 07:00 15:00 23:00 07:00 15:00 23:00 Intake Total 2000 ml 800 ml 800 ml Output Total 1250 ml Balance 750 ml 800 ml 800 ml Intake Oral 2000 ml 800 ml Packed Cells 800 ml Output Urine Total 1250 ml # Voids 6 2 # Bowel Movements 2 1 Laboratory Laboratory Tests Test 10/13/17 14:05 10/13/17 16:23 10/14/17 06:40 Hemoglobin 8.7 9.0 Hematocrit 25.0 25.9 White Blood Count 6.6 Red Blood Count 3.07 Mean Corpuscular Volume 84.5 Mean Corpuscular Hemoglobin 29.4 Mean Corpuscular Hemoglobin Concent 34.8 Red Cell Distribution Width 15.4 Platelet Count 146 Mean Platelet Volume 8.6 Imaging Last Impressions Abdomen/Pelvis CT 10/11/17 0325 Signed Impressions: Service Date/Time: Wednesday, October 11, 2017 04:28 - CONCLUSION: 1. Indeterminate 2.6 cm mass in the posterior right lobe of the liver. This appears new since prior exam although previous examination was not contrast enhanced. This can be further characterized with MRI examination on outpatient basis. Additional subcentimeter hypodense lesions in segment 4 and 3 of the liver are too small to fully characterize. 2. Mild sigmoid diverticulosis. No significant inflammatory change or gross mass. 3. Trace stable anterior pericardial effusion. 4. Redemonstration of fat-containing left inguinal hernia, multiple bilateral renal cysts and nonobstructing 8 mm inferior right renal pole calyceal calculus. Jono Campbell MD Physical Exam HEENT: normocephalic; atraumatic; no jaundice. CHEST: CTA CARDIAC: RRR ABDOMEN: Soft, protuberant, nontender; no hepatosplenomegaly; bowel sounds are present in all four quadrants. black stool seen on sheets EXTREMITIES: No clubbing, cyanosis, or edema. SKIN: Normal; no rash; no jaundice. UPPER EXTREMITY SURGEON: alert and oriented (Adilene Hummel) Assessment and Plan Plan ASSESSMENT - black tarry stool, BRBPR - 3 days ago had black tarry stool and then jj blood per rectum yesterday. daily use ibuprofen could be ulcer, has hx duodenal ulcer. EGD 06/2016 found irr z line, duodenal ulcer, path h pylori and mild eosinophilic esophagitis. - anemia - normocytic hgb 9.5 on admission. 2/2 above - liver mass - 2.6 cm mass liver seen on CT, also sigmoid diverticulosis, outpt MRI recommended 10/12/17 s/p 10/11/17 EGD found bleeding ulcer that was cauterized and injected with good hemostasis achieved. pt having melanotic stool and his hh trending down, will need EGD again. hgb 7.0, blood transfusing. 10/13/17 s/p repeat EGD found bleeding duodenal ulcer, clip applied, epi injected, cauterized. per pt melena improving. hgb 7.2 after 2 x PRBC, 2 more units pending 10/14/17 hgb up to 9, had 2 x PRBC yesterday. BM this morning not bloody or black and tarry. PLAN - heart healthy diet - if bleeding IR consult for embolization - monitor labs - transfuse as needed - outpt MRI - outpt colonoscopy - EGD 2 months - BID PPI - avoid anticoagulation, NSAIDs, asa pt seen by myself and Dr Durant and this note is on his behalf (Adilene Hummel) Physician Comments Seen and examined with JU, doing better. Asking to go home. No Nsaids, gi fu upon dc with Dr. Ba. Thank you (Alanis Durant MD) Adilene Hummel Oct 14, 2017 08:51 Alanis Durant MD Oct 14, 2017 13:04
[2017-10-14] MEDS: REMOVE OLD PATCH T-DERMAL SCH (09:00)
--- NOTE | 2017-10-14 09:13 | HHI.PR ---
Subjective Remarks Follow-up visit GI bleed, duodenal ulcer, anemia. Patient seen and examined today lying in bed. Reports he is doing very well. States that he has no more bloody bowel movements. Reports tolerating by mouth diet. He's been walking around and feeling okay without any dizziness, headaches, chest pain, palpitations, shortness of breath or dyspnea. Denies any dysuria, abdominal pain, nausea, vomiting, diarrhea. Objective Vitals Vital Signs Date Time Temp Pulse Resp B/P (MAP) Pulse Ox O2 Delivery O2 Flow Rate FiO2 10/14/17 07:50 97.5 85 24 168/88 (114) 95 10/14/17 05:01 98.3 94 18 150/75 (100) 94 10/14/17 01:37 12 10/14/17 00:24 98.2 90 18 134/63 (86) 97 10/13/17 19:53 98.6 93 18 133/68 (89) 95 10/13/17 15:12 98.4 95 24 175/94 (121) 97 10/13/17 15:00 98 10/13/17 11:51 98.0 97 24 154/83 (106) 96 10/13/17 11:21 98.1 97 18 150/67 97 10/13/17 11:04 98.0 96 18 149/84 97 I/O 10/13/17 10/13/17 10/13/17 10/14/17 10/14/17 10/14/17 07:00 15:00 23:00 07:00 15:00 23:00 Intake Total 2000 ml 800 ml 800 ml Output Total 1250 ml Balance 750 ml 800 ml 800 ml Intake Oral 2000 ml 800 ml Packed Cells 800 ml Output Urine Total 1250 ml # Voids 6 2 # Bowel Movements 2 1 Result Diagram: 10/14/17 0640 10/13/17 0556 Imaging Last Impressions Abdomen/Pelvis CT 10/11/17 0325 Signed Impressions: Service Date/Time: Wednesday, October 11, 2017 04:28 - CONCLUSION: 1. Indeterminate 2.6 cm mass in the posterior right lobe of the liver. This appears new since prior exam although previous examination was not contrast enhanced. This can be further characterized with MRI examination on outpatient basis. Additional subcentimeter hypodense lesions in segment 4 and 3 of the liver are too small to fully characterize. 2. Mild sigmoid diverticulosis. No significant inflammatory change or gross mass. 3. Trace stable anterior pericardial effusion. 4. Redemonstration of fat-containing left inguinal hernia, multiple bilateral renal cysts and nonobstructing 8 mm inferior right renal pole calyceal calculus. Jono Campbell MD Objective Remarks GENERAL: This is a well-nourished, well-developed patient, in no apparent distress. SKIN: Cool and dry. HEAD: Normocephalic. EYES: Pupils equal round and reactive. Extraocular motions intact. No scleral icterus. No injection or drainage. ENT: Nose without bleeding. Throat without erythema. Uvula midline. Airway patent. NECK: Trachea midline. CARDIOVASCULAR: Regular rate and rhythm without murmurs, gallops, or rubs. RESPIRATORY: Clear to auscultation. Breath sounds equal bilaterally. No wheezes , rales, or rhonchi. GASTROINTESTINAL: Abdomen soft, non-tender, protuberant. Bowel sounds active 4. MUSCULOSKELETAL: Extremities without clubbing, cyanosis, or edema. NEUROLOGICAL: Awake and alert. Cranial nerves II through XII intact. Motor and sensory grossly within normal limits. Normal speech. Procedures EGD x2 A/P Problem List: (1) GI bleed ICD Code: K92.2 - Gastrointestinal hemorrhage, unspecified Status: Acute (2) Liver mass ICD Code: R16.0 - Hepatomegaly, not elsewhere classified Status: Acute (3) Hypertension ICD Code: I10 - Essential (primary) hypertension Status: Chronic (4) Diabetes mellitus ICD Code: E11.9 - Type 2 diabetes mellitus without complications Status: Acute (5) CHF (congestive heart failure) ICD Code: I50.9 - Heart failure, unspecified Status: Chronic (6) Melena ICD Code: K92.1 - Melena Status: Acute Assessment and Plan Patient is a 66-year-old male with primary medical history of peptic ulcer disease, CHF, HTN, GERD, DM 2 who came into the hospital with complaints of dark stools and blood in the stools. S/P EGD 10/11/17 GI bleed, Acute Peptic ulcer disease, history - H&H dropped from 06/2017 reading 14.2 -->9.5 - GI consult. Previously seen Dr. Canas with EGD colonoscopy he has peptic ulcer - Protonix 40 PO BID per GI, Repeat EGD in 2 mos, MRI outpatient. - Nothing by mouth. - Low H/H 7.0/20.1. 2 units packed RBC ordered for transfusion, yesterday. EGD repeat 10/12/17 - 2 more units of blood transfused yesterday. H&H 9.0/25.9 - Avoid NSAIDs, anticoagulants, ASA. - No signs and symptoms of active bleeding. If cleared by GI will discharge patient to go home. History of A. fib CHF, exacerbation - On diltiazem 60 mg twice a day DM 2 - Insulin sliding scale - Monitor Accu-Cheks. Monitor for hypoglycemia. - Start metformin when going home DVT prop SCD, pharmacologic prophylaxis contraindicated secondary to bleeding Discharge Planning Plan to DC home today when cleared by GI Problem Qualifiers (1) GI bleed: Qualified Codes: K92.1 - Jeovany Nazario Oct 14, 2017 09:12
--- NOTE | 2017-10-14 09:18 | HHI.DCPOC ---
Discharge Care Plan Diagnosis: (1) Hypertension (2) CHF (congestive heart failure) (3) Diabetes mellitus (4) GI bleed (5) Duodenal ulcer Your Health Problems Are: Inflammation Bleeding Tendency Goals to Promote Your Health * To prevent worsening of your condition and complications * To maintain your health at the optimal level Directions to Meet Your Goals Take your medications as prescribed Follow your dietary instruction Follow activity as directed Keep your appointments as scheduled Take your immunizations and boosters as scheduled If your symptoms worsen call your PCP, if no PCP go to Urgent Care Center or Emergency Room Smoking is Dangerous to Your Health. Avoid second hand smoke Call the 24-hour hour crisis hotline for domestic abuse at Jeovany Sutherland Oct 14, 2017 09:18
--- NOTE | 2017-10-14 09:20 | HHI.DS ---
Discharge Summary Admission Date Oct 12, 2017 at 12:02 Discharge Date: Oct 14, 2017 Admitting Diagnosis GI Bleed (1) GI bleed ICD Code: K92.2 - Gastrointestinal hemorrhage, unspecified Status: Acute (2) Liver mass ICD Code: R16.0 - Hepatomegaly, not elsewhere classified Status: Acute (3) Hypertension ICD Code: I10 - Essential (primary) hypertension Status: Chronic (4) Diabetes mellitus ICD Code: E11.9 - Type 2 diabetes mellitus without complications Status: Acute (5) CHF (congestive heart failure) ICD Code: I50.9 - Heart failure, unspecified Status: Chronic (6) Melena ICD Code: K92.1 - Melena Status: Acute Procedures EGD x2 Brief History - From Admission Patient is a 66-year-old male with primary medical history of peptic ulcer disease, CHF, HTN, GERD, DM 2 who came into the hospital with complaints of dark stools and blood in the stools. Patient states that about a week ago he's been having dark stools, however yesterday, he noticed that there is blood in his stools. He went to the bathroom about 4 times. He states he feels a lot better right now. Denies any abdominal pain or cramping. Denies any nausea, vomiting, diarrhea. Denies any chest pain, palpitations, shortness of breath, dysuria, headaches, dizziness. Patient states he has peptic ulcer disease prior and he was seen by Dr. Canas and did an EGD and found he had an ulcer. Patient states he was given medications and he was taking it but that was a longtime ago that he is not on that medication anymore. H&H 9.5.6 CBC/BMP: 10/14/17 0640 10/13/17 0556 Significant Findings Laboratory Tests Test 10/11/17 17:48 10/12/17 06:35 10/13/17 05:56 10/13/17 14:05 Hemoglobin 7.2 GM/DL (13.0-17.0) 7.0 GM/DL (13.0-17.0) 7.2 GM/DL (13.0-17.0) Hematocrit 21.4 % (39.0-51.0) 20.1 % (39.0-51.0) 21.4 % (39.0-51.0) Red Blood Count 2.33 MIL/MM3 (4.50-5.90) 2.50 MIL/MM3 (4.50-5.90) Platelet Count 148 TH/MM3 (150-450) 135 TH/MM3 (150-450) Blood Urea Nitrogen 36 MG/DL (7-18) 20 MG/DL (7-18) Random Glucose 173 MG/DL (74-106) 199 MG/DL (74-106) Calcium Level 8.2 MG/DL (8.5-10.1) 8.2 MG/DL (8.5-10.1) Sodium Level 148 MEQ/L (136-145) Chloride Level 113 MEQ/L (98-107) 109 MEQ/L (98-107) Anion Gap 4 MEQ/L (5-15) Estimat Glomerular Filtration Rate 83 ML/MIN (>89) 82 ML/MIN (>89) Test 10/13/17 16:23 10/14/17 06:40 Hemoglobin 8.7 GM/DL (13.0-17.0) 9.0 GM/DL (13.0-17.0) Hematocrit 25.0 % (39.0-51.0) 25.9 % (39.0-51.0) Red Blood Count 3.07 MIL/MM3 (4.50-5.90) Platelet Count 146 TH/MM3 (150-450) PE at Discharge GENERAL: This is a well-nourished, well-developed patient, in no apparent distress. SKIN: Cool and dry. HEAD: Normocephalic. EYES: Pupils equal round and reactive. Extraocular motions intact. No scleral icterus. No injection or drainage. ENT: Nose without bleeding. Throat without erythema. Uvula midline. Airway patent. NECK: Trachea midline. CARDIOVASCULAR: Regular rate and rhythm without murmurs, gallops, or rubs. RESPIRATORY: Clear to auscultation. Breath sounds equal bilaterally. No wheezes , rales, or rhonchi. GASTROINTESTINAL: Abdomen soft, non-tender, protuberant. Bowel sounds active 4. MUSCULOSKELETAL: Extremities without clubbing, cyanosis, or edema. NEUROLOGICAL: Awake and alert. Cranial nerves II through XII intact. Motor and sensory grossly within normal limits. Normal speech. Pt update on day of discharge Follow-up visit GI bleed, duodenal ulcer, anemia. Patient seen and examined today lying in bed. Reports he is doing very well. States that he has no more bloody bowel movements. Reports tolerating by mouth diet. He's been walking around and feeling okay without any dizziness, headaches, chest pain, palpitations, shortness of breath or dyspnea. Denies any dysuria, abdominal pain, nausea, vomiting, diarrhea. Hospital Course Patient is a 66-year-old male with primary medical history of peptic ulcer disease, CHF, HTN, GERD, DM 2 who came into the hospital with complaints of dark stools and blood in the stools. Found to have acute GI bleed, history of peptic ulcer disease. H&H drop reading to 7.0/20.1. Patient had 2 EGDs done. First EGD 10/11/17 was found to have duodenal ulcer that they have cauterized and cleared out. However during the following day patient's hemoglobin is still 7.0/20.1 and he had continued to have dark bloody stool. He was taken again for another EGD 10/12/17 and they did clipping and cauterization. Patient received a total of 4 units of packed RBCs. Latest H&H 9.0/25.9. No evidence of reported active bleeding. Patient states he is feeling very well. He will continue with Protonix twice a day. We'll follow up with GI and we'll repeat his EGD in 2 months. He will restart his medication from home including metformin and Cardizem. Follow-up with his PCP all of this has been discussed with patient. Patient has met maximal benefits of hospitalization. Clinically stable for discharge. Pt Condition on Discharge: Stable Discharge Disposition: Discharge Home Discharge Time: <= 30 minutes Discharge Instructions DIET: Follow Instructions for: Heart Healthy Diet Additional Diet Instructions: Avoid NSAIDs - Motrin, ibuprofen, Aleve. Avoid aspirin. Avoid anticoagulants Activities you can perform: Regular-No Restrictions Activities to Avoid: Driving for 24 hrs Follow up Referrals: Gastroenterology - 2 Weeks @ [facility] PCP Follow-up - 1 Week New Medications: Nicotine (Eq Nicotine) 14 Mg/24 Hour Dis 1 PATCH T-DERMAL DAILY for smoking cessation, #30 PATCH Pantoprazole (Pantoprazole) 40 Mg Tab 40 MG PO Q12HR for Ulcer, #60 TAB Continued Medications: Diltiazem ER 12 HR (Diltiazem ER 12 HR) 60 Mg Caper 60 MG PO BID, #60 CAP 0 Refills Metformin (Metformin) 500 Mg Tab 500 MG PO BIDPC for Blood Sugar Management, #60 TAB 0 Refills With meals Jeovany Sutherland Oct 14, 2017 09:20
[2017-10-14] MEDS: PANTOPRAZOLE SOD 40 MG DELAYED RELEASE TAB PO SCH (09:49)
[2017-10-14] MEDS: INSULIN ASPART SUPPLEMENTAL SCALE SQ SCH (09:49)
[2017-10-14] MEDS: SODIUM CHLORIDE 0.9% FLUSH 10 ML FLUSH IV FLUSH SCH (09:50)
[2017-10-14] MEDS: NICOTINE 14 MG/24 HR PATCH T-DERMAL SCH (09:50)
== END 2017-10-14 13:08 | disposition home or self-care (01) | DRG 379 ==
LOC: NEPC 03:04 → NEDA 05:35 → NEPGCP 06:16 → OBSVTOIN 10-12 12:02
PROVIDERS: ADMIT Hospitalist; ATTEND Hospitalist
PROC: 0W3P8ZZ Control Bleeding in Gastrointestinal Tract, Via Natural or Artificial Opening Endoscopic (ICD-10-PCS; principal; 2017-10-11 15:19)
PROC: 0W3P8ZZ Control Bleeding in Gastrointestinal Tract, Via Natural or Artificial Opening Endoscopic (ICD-10-PCS; 2017-10-12)
PROC: 30233N1 Transfusion of Nonautologous Red Blood Cells into Peripheral Vein, Percutaneous Approach (ICD-10-PCS; 2017-10-12)
DX: K26.4 Chronic or unspecified duodenal ulcer with hemorrhage (principal); I11.0 Hypertensive heart disease with heart failure; I50.9 Heart failure, unspecified; E11.9 Type 2 diabetes mellitus without complications; I48.0 Paroxysmal atrial fibrillation; K21.9 Gastro-esophageal reflux disease without esophagitis; D50.0 Iron deficiency anemia secondary to blood loss (chronic); K76.9 Liver disease, unspecified; K57.30 Diverticulosis of large intestine without perforation or abscess without bleeding; F17.210 Nicotine dependence, cigarettes, uncomplicated; Z79.84 Long term (current) use of oral hypoglycemic drugs
CPT/HCPCS: 36430; 74177; 76937; 80048; 80053; 82550; 82948; 83690; 83880; 84484; 85014; 85018; 85025; 85027; 85610; 85730; 86850; 86900; 86901; 86920; 87338; 93005; 96361; 96365; 96366; C9113; G0378; J0171; J1815; J1940; J2370; J7030; J7050; J7120; P9016; Q9967

== ENCOUNTER 2018-06-04 16:59 | Inpatient (IN) ==
--- NOTE | 2018-06-04 19:59 | ED ---
HPI General Chief complaint: Urogenital-Male Stated complaint: Blood in urine Time Seen by Provider: 06/04/18 19:18 Source: patient Limitations: no limitations History of Present Illness HPI narrative: The patient is a 67 year old male who presents to the [facility] emergency department with a history of hematuria that began shortly after having a prostate biopsy done at 4 PM earlier today by Dr. Ochoa. The patient reports that this was a transrectal biopsy. He reports that since then he has had bloody stools at least 5 times and bloody urine. He reports that he has severe pain with urinating. He is unsure whether he is completely evacuating his bladder. He reports that there is a significant amount of blood in his stool and blood in his urine. He denies being on any aspirin or other blood thinners daily. He denies having any chest pain, chest pressure, shortness of breath, or lightheaded sensation associated with this. He denies having any nausea or vomiting. He denies being on any antibiotic currently. He denies having any known recent fevers, otherwise on review of systems he denies having any cough, congestion, neck pain, or neurologic symptoms. LMP [-] Tetanus is reportedly up to date. Related Data Home Medications Medication Instructions Recorded Confirmed diltiazem HCl 60 mg PO Q12H 04/03/18 06/04/18 metformin 500 mg PO BID 04/03/18 06/04/18 nitrofurantoin macrocrystal 100 mg PO BID 04/03/18 06/04/18 pantoprazole 40 mg PO DAILY 04/03/18 06/04/18 tamsulosin [Flomax] 0.4 mg PO DAILY 04/03/18 06/04/18 Allergies Allergy/AdvReac Type Severity Reaction Status Date / Time No Known Allergies Allergy Verified 06/04/18 19:08 Review of Systems ROS: all other systems reviewed are negative [facility] Medical History Medical History CHF (congestive heart failure) (Acute) Diabetes (Acute) GERD (gastroesophageal reflux disease) (Acute) History of irregular heartbeat (Acute) Hx of left flank pain (Acute) Hx of renal calculi (Acute) Hypertension (Acute) Surgical History Surgical History H/O prostate biopsy (Acute) Hx of neck surgery (Acute) Family History Family History Other Family history normal Social History Social History Substance History: No History of Abuse Second Hand Smoke Exposure: No Smoking Status: Current every day smoker Tobacco Type: Cigarettes How Often Do You Have a Drink Containing Alcohol: Never Recent Travel in [facility] within the Last 8 Weeks: No Recent Out of Country Travel within the Last 8 Weeks: No Immunization History Tetanus Immunization: <5 Years Exam Const General: cooperative, no acute distress and well developed Nutritional Appearance: well nourished Orientation: alert, awake and oriented x3 HENMT Head: normocephalic and atraumatic Nose: no nasal discharge and no epistaxis Mouth: moist mucous membranes Throat: posterior oropharynx normal and uvula midline Eyes Sclera: normal sclerae Pupils: PERRL Neck Neck: trachea midline and no JVD Resp Effort & Inspection: no use of accessory muscles Auscultation: clear to auscultation bilaterally Cardio Rate: regular rate Rhythm: regular rhythm Heart Sounds: no murmurs GI Inspection: distended and obesity Palpation: soft, no hepatosplenomegaly, no guarding, not rigid and tender suprapubicly; not in the epigastrum, not in the LLQ, not in the RLQ, not in the LUQ, not in the RUQ, not at McBurney's point, Cardona's sign negative and with no rebound tenderness Auscultation: normal bowel sounds Back/Spine/Pelvis Back: no CVA tenderness Skin General: dry skin (warm) Neuro General: alert, awake and oriented x3 Cranial Nerves: CN's II-XI intact bilaterally Speech: speech normal Motor: strength 5/5 throughout and no movement abnormalities noted Sensory Exam: no sensory deficits noted Extrem General: normal to inspection (2+ pulses in all 4 extremities.), no calf tenderness, no clubbing, no cyanosis and no edema Psych Mood: congruent mood Affect: normal affect Judgment: judgment good Course Initial Documented Vital Signs Temperature 98.4 F 06/04/18 17:02 Pulse Rate 98 H 06/04/18 17:02 Respiratory Rate 18 06/04/18 17:02 Blood Pressure 214/96 H 06/04/18 17:02 Pulse Oximetry 96 06/04/18 17:02 Last Documented Vital Signs Temperature 97.5 F L 06/05/18 04:00 Pulse Rate 79 06/05/18 04:00 Respiratory Rate 19 06/05/18 04:00 Blood Pressure 153/85 H 06/05/18 04:00 Pulse Oximetry 93 L 06/05/18 04:00 Medical Decision Making MDM Narrative Medical decision making narrative: During the course of the patient's emergency department visit, the patient's history, examination, and differential diagnosis were reviewed with the patient. The patient was placed on a environmental journalist with oximetry and frequent blood pressure monitoring. The patient had IV access obtained and blood work sent for analysis. Diagnostic evaluation was started regarding the patient's rectal bleeding, hematuria, pain with urination status post prostate biopsy earlier today by Dr. Ochoa. Zepeda catheter, three- way catheter will be placed to gravity to assess the need for bladder irrigation. The patient had a Zepeda catheter placed and 600 mL of urine were evacuated from the bladder. The Zepeda catheter will be continued. The patient' s bladder will be irrigated. The patient was initially provided normal saline IV fluids. Normal white count 7.8, normal hemoglobin at 14.4, platelets 136 in a patient with mild thrombocytopenia in the past, neutrophils 74.6, PT 10.6, PTT 26.1, chemistry is remarkable for a GFR of 73, glucose 134, AST 14, lipase within normal limits, urinalysis shows large occult blood innumerable RBCs, 8 WBCs, culture not indicated. A CT scan of the abdomen and pelvis shows a discrete area of increased density within the posterior aspect of the urinary bladder appears to be contiguous with the anterior lobe of the prostate which probably represents a source of the bleeding. Prostate is prominent at 6.6 cm. The patient's case including history, pertinent physical examination findings, and laboratory studies were discussed with Dr. Leslie. It was agreed that the patient would be admitted to the hospitalist service. The patient's results were discussed with the patient, including the plan of care. I explained that further testing and/ or monitoring is indicated based on the patient's history, examination, and/ or laboratory findings. Therefore, I recommended admission for additional evaluation. The patient expressed understanding and was agreeable with this plan. The patient was admitted to the hospital in guarded condition and sent to a bed under the care of [facility] service. The patient's results were discussed with the patient, including the plan of care. I explained that further testing and/ or monitoring is indicated based on the patient's history, examination, and/ or laboratory findings. Therefore, I recommended admission for additional evaluation. The patient expressed understanding and was agreeable with this plan. The patient was admitted to the hospital in stable condition and sent to a bed under the care of [facility] service. Medical Screen Exam Complete: Yes Emergency Medical Condition: Yes Differential Diagnosis Differential Diagnosis: Postprocedure bleeding, versus urinary retention from clots from hematuria, versus symptomatic anemia Medical Records Medical records reviewed: Yes I reviewed the patient's medical records. Lab Data Lab results reviewed: Yes I reviewed the patient's lab results. Result diagrams: 06/04/18 19:20 06/04/18 19:20 Lab Results 06/04/18 06/04/18 06/04/18 Range/Units 19:15 19:20 19:20 WBC 7.8 (4.0-11.0) th/mm3 RBC 5.17 (4.50-5.90) mil/mm3 Hgb 14.4 (13.0-17.0) gm/dL Hct 43.9 (39.0-51.0) % MCV 84.9 (80.0-100.0) fL MCH 27.9 (27.0-34.0) pg MCHC 32.9 (32.0-36.0) % RDW 13.8 (11.6-17.2) % Plt Count 136 L (150-450) th/mm3 MPV 8.9 (7.0-11.0) fL Neut % (Auto) 74.6 H (16.0-70.0) % Lymph % (Auto) 17.0 (9.0-44.0) % Whiteside % (Auto) 6.8 (0.0-8.0) % Eos % (Auto) 1.3 (0.0-4.0) % Baso % (Auto) 0.3 (0.0-2.0) % Neut # (Auto) 5.9 (1.8-7.7) th/mm3 Lymph # (Auto) 1.3 (1.0-4.8) th/mm3 Whiteside # (Auto) 0.5 (0.0-0.9) th/mm3 Eos # (Auto) 0.1 (0.0-0.4) th/mm3 Baso # (Auto) 0.0 (0.0-0.2) th/mm3 WBC Differential . Differential Comment Auto diff final PT 10.6 (9.8-11.6) sec INR 1.0 Ratio APTT 26.1 (24.3-30.1) sec Sodium (136-145) meq/L Potassium (3.5-5.1) meq/L Chloride (98-107) meq/L Carbon Dioxide (21.0-32.0) meq/L Anion Gap (5-15) meq/L BUN (7-18) mg/dL Creatinine (0.60-1.30) mg/dL Estimated GFR (>89) mL/min Random Glucose (74-106) mg/dL Calcium (8.5-10.1) mg/dL Magnesium (1.5-2.5) mg/dL Total Bilirubin (0.2-1.0) mg/dL AST (15-37) U/L ALT (12-78) U/L Alkaline Phosphatase (45-117) U/L Total Protein (6.4-8.2) g/dL Albumin (3.4-5.0) g/dL Lipase (73-393) U/L Urine Color (Yellw/Straw) Urine Clarity (Clear) Urine pH (5.0-8.5) Ur Specific [place] (1.002-1.035) Urine Protein (Neg-Trace) mg/dL Urine Glucose (UA) (Negative) mg/dL Urine Ketones (Negative) mg/dL Urine Occult Blood (Negative) Urine Nitrate (Negative) Urine Bilirubin (Negative) Urine Urobilinogen (Less than 2) mg/dL Ur Leukocyte Esterase (Negative) Urine RBC (0-3) /hpf Urine WBC (0-5) /hpf Micro UA Comment Ur Microscopic Review Urine Culture Comments Blood Type A Positive Blood Type Recheck Not needed Antibody Screen Negative 06/04/18 06/04/18 Range/Units 19:20 19:36 WBC (4.0-11.0) th/mm3 RBC (4.50-5.90) mil/mm3 Hgb (13.0-17.0) gm/dL Hct (39.0-51.0) % MCV (80.0-100.0) fL MCH (27.0-34.0) pg MCHC (32.0-36.0) % RDW (11.6-17.2) % Plt Count (150-450) th/mm3 MPV (7.0-11.0) fL Neut % (Auto) (16.0-70.0) % Lymph % (Auto) (9.0-44.0) % Whiteside % (Auto) (0.0-8.0) % Eos % (Auto) (0.0-4.0) % Baso % (Auto) (0.0-2.0) % Neut # (Auto) (1.8-7.7) th/mm3 Lymph # (Auto) (1.0-4.8) th/mm3 Whiteside # (Auto) (0.0-0.9) th/mm3 Eos # (Auto) (0.0-0.4) th/mm3 Baso # (Auto) (0.0-0.2) th/mm3 WBC Differential Differential Comment PT (9.8-11.6) sec INR Ratio APTT (24.3-30.1) sec Sodium 137 (136-145) meq/L Potassium 3.6 (3.5-5.1) meq/L Chloride 101 (98-107) meq/L Carbon Dioxide 28.0 (21.0-32.0) meq/L Anion Gap 8 (5-15) meq/L BUN 13 (7-18) mg/dL Creatinine 1.02 (0.60-1.30) mg/dL Estimated GFR 73 L (>89) mL/min Random Glucose 134 H (74-106) mg/dL Calcium 8.5 (8.5-10.1) mg/dL Magnesium 1.9 (1.5-2.5) mg/dL Total Bilirubin 0.3 (0.2-1.0) mg/dL AST 14 L (15-37) U/L ALT 30 (12-78) U/L Alkaline Phosphatase 84 (45-117) U/L Total Protein 7.0 (6.4-8.2) g/dL Albumin 3.6 (3.4-5.0) g/dL Lipase 105 (73-393) U/L Urine Color Red (Yellw/Straw) Urine Clarity Marked H (Clear) Urine pH 7.0 (5.0-8.5) Ur Specific [place] 1.025 (1.002-1.035) Urine Protein 500 or greater (Neg-Trace) mg/dL Urine Glucose (UA) 50 (Negative) mg/dL Urine Ketones Negative (Negative) mg/dL Urine Occult Blood Large H (Negative) Urine Nitrate Negative (Negative) Urine Bilirubin Negative (Negative) Urine Urobilinogen Less than 2 (Less than 2) mg/dL Ur Leukocyte Esterase Negative (Negative) Urine RBC (0-3) /hpf Urine WBC 8 H (0-5) /hpf Micro UA Comment Culture not ind Ur Microscopic Review Not Reportable Urine Culture Comments Culture not ind Blood Type Blood Type Recheck Antibody Screen Imaging Data Radiologist's impression: Abdomen/Pelvis CT 06/04/18 21:16 CONCLUSION: 1. Discrete area of increased density within the posterior aspect of the urinary bladder appears to be contiguous with the anterior lobe of the prostate which probably represents the source of bleeding. 2. Prostate is prominent at 6.6 cm. 3. Bilateral renal cortical cysts, the largest in the upper pole the right kidney measures 12.6 cm in diameter. 4. 2.9 cm hemangioma in the right hepatic lobe. Discharge Plan Discharge Disposition Patient Disposition: 30 Still Patient Discharge Details Diagnosis: Acute retention of urine, Hematuria Physicians Team ED Provider: Awilad Mc Primary Care Provider: UNKNOWN, Attending Provider: Randa Siegel Other Providers: Jose Angel Rhodes ; Milly,[employer] Status ED Status: Left Department Discharge Information Discharge Date/Time: 06/05/18 03:08
[2018-06-04 20:22] LABS: Baso % (Auto) 0.3 % (0.0-2.0); Eos # (Auto) 0.1 th/mm3 (0.0-0.4); Eos % (Auto) 1.3 % (0.0-4.0); Hematocrit 43.9 % (39.0-51.0); Hemoglobin 14.4 gm/dL (13.0-17.0); Lymph # (Auto) 1.3 th/mm3 (1.0-4.8); Mean Corpuscular HGB Conc 32.9 % (32.0-36.0); Mean Corpuscular Hemoglobin 27.9 pg (27.0-34.0); Mean Corpuscular Volume 84.9 fL (80.0-100.0); Mean Platelet Volume 8.9 fL (7.0-11.0); Mono # (Auto) 0.5 th/mm3 (0.0-0.9); Mono % (Auto) 6.8 % (0.0-8.0); Neut # (Auto) 5.9 th/mm3 (1.8-7.7); Neut % (Auto) 74.6 % (16.0-70.0); Platelet Count 136 th/mm3 (150-450); Red Blood Count 5.17 mil/mm3 (4.50-5.90); Red Cell Distribution Width 13.8 % (11.6-17.2); White Blood Count 7.8 th/mm3 (4.0-11.0)
[2018-06-04 20:36] LABS: Activated Partial Thrombo Time 26.1 sec (24.3-30.1); Prothrombin Time 10.6 sec (9.8-11.6)
[2018-06-04 20:44] LABS: Alanine Aminotransferase 30 U/L (12-78); Albumin 3.6 g/dL (3.4-5.0); Anion Gap 8 meq/L (5-15); Aspartate Aminotransferase 14 U/L (15-37); Blood Urea Nitrogen 13 mg/dL (7-18); Calcium 8.5 mg/dL (8.5-10.1); Chloride 101 meq/L (98-107); Glomerular Filtration Rate 73 mL/min (>89); Glucose,Random 134 mg/dL (74-106); Lipase 105 U/L (73-393); Magnesium 1.9 mg/dL (1.5-2.5); Potassium 3.6 meq/L (3.5-5.1); Sodium 137 meq/L (136-145)
[2018-06-04 20:47] LABS: Alkaline Phosphatase 84 U/L (45-117)
[2018-06-04 21:11] LABS: Bilirubin,Urine Negative (Negative); Color,Urine Red (Yellw/Straw); Glucose,Urine (UA) 50 mg/dL (Negative); Leukocyte Esterase,Urine Negative (Negative); Nitrite,Urine Negative (Negative); Specific Gravity,Urine 1.025 (1.002-1.035)
[2018-06-04] MEDS ORDERED: Lidocaine 2% Jelly 5 ML Syringe ONE (21:13)
[2018-06-04] MEDS ORDERED: Morphine Inj 4 MG/ML Vial IV.PUSH ONE (21:14)
[2018-06-04 21:17] LABS: Clarity,Urine Marked (Clear)
[2018-06-04] MEDS: Sod Chloride 0.9% Inj 1,000 ML IV.CONT SCH (21:20)
--- NOTE | 2018-06-04 22:33 | CT ---
EXAM DATE: 06/04/2018 9:34 PM EDT AGE/SEX: 67 years / Male INDICATIONS: Gross hematuria following prostate biopsy today. CLINICAL DATA: This is the patient's initial encounter. Patient reports that signs and symptoms have been present for 1 day and indicates a pain score of 0/10. MEDICAL/SURGICAL HISTORY: Renal calculi. Gastroesophageal reflux disease. Cardiovascular dise ase. Diabetes. . Prostate biopsy. ORAL CONTRAST: No oral contrast ingested. RADIATION DOSE: 16.62 CTDI (mGy) COMPARISON: POI, MR ABDOMEN W/ AND W/O CONTRAST, 11/16/2017. . TECHNIQUE: Multiple contiguous axial images were obtained through the abdomen and pelvis following b olus infusion of 96 ml Omnipaque 350 (iohexol) nonionic water-soluble contrast as a single exam dos e. No oral contrast ingested. Using automated exposure control and adjustment of the mA and/or kV ac cording to patient size, radiation dose was kept as low as reasonably achievable to obtain optimal di agnostic quality images. DICOM format image data is available electronically for review and comparis on. FINDINGS: Lower Lungs: The visualized lower lungs are clear. Liver: There is a 2.9 cm hypodensity in the right hepatic lobe which was previously evaluated on MRI and described as a benign hemangioma. Otherwise, homogeneous density with no intra or extrahepatic bi liary ductal dilatation Spleen: Homogeneous density without enlargement. Pancreas: Unremarkable without mass or calcification. Kidneys: Bilateral renal cortical cysts. The largest in the upper pole of the right kidney measures 12.6 cm in diameter. Nonobstructing 7 mm stone in the lower pole collecting system right kidney. Adrenal Glands: Unremarkable. Aorta: The aorta and proximal iliac vessels are grossly unremarkable without aneurysmal dilation. Bowel/Mesentery: The bowel loops are grossly unremarkable. The cecum and sigmoid colon have a normal configuration. Abdominal Wall: Intact. Retroperitoneum: No evidence of adenopathy in the retrocrural, para-aortic, or deep pelvic regions. Bladder: Area of increased density within the dependent portion of the urinary bladder likely repres ents blood. This is contiguous with the anterior lobe of the prostate which likely represents the pelon rce of bleeding. Reproductive Organs: Prostate is prominent at 6.6 cm with dystrophic type calcifications Inguinal: The inguinal region is unremarkable without evidence of adenopathy. Bony Structures: Unremarkable. Post Contrast: No abnormal areas of enhancement seen. CONCLUSION: 1. Discrete area of increased density within the posterior aspect of the urinary bladder appears to be contiguous with the anterior lobe of the prostate which probably represents the source of bleeding . 2. Prostate is prominent at 6.6 cm. 3. Bilateral renal cortical cysts, the largest in the upper pole the right kidney measures 12.6 cm i n diameter. 4. 2.9 cm hemangioma in the right hepatic lobe. Electronically signed by: Yared Wilson MD 06/04/2018 10:32 PM EDT
[2018-06-05] MEDS ORDERED: Acetaminophen 325 MG Tablet PO PRN (00:07)
[2018-06-05] MEDS ORDERED: Dextrose 50% in Water 50 ML Vial IV.PUSH PRN (00:10)
[2018-06-05] MEDS ORDERED: Sodium Chloride 0.9% 2 ML Flush PRN IV.FLUSH (00:18)
--- NOTE | 2018-06-05 00:39 | P.HP ---
History of Present Illness Service: [facility] Primary Care Physician: UNKNOWN History of Present Illness: 67-year-old male with past medical history frequent for CHF (last echo in 2016 showed an EF of 45-50%), diabetes mellitus, GERD, hypertension and atrial fibrillation not currently on systemic anticoagulation presents to the emergency department for the evaluation of hematuria and bright red blood per rectum. The patient underwent a prostate biopsy with Dr. Ochoa on 06/04/18. He reports since that time he has had copious quantities of bright red blood per rectum and in his urine. He also reports of burning sensation with urination. He denies chest pain or shortness of breath. Reports some mild to moderate pelvic discomfort. No nausea/vomiting/diarrhea. No lateralizing signs /symptoms. No fever/chills. Review of Systems All other systems reviewed negative except as stated [facility] - History History Provided By: Medical Record - Medical History Medical History: Medical History (Last Reviewed 06/05/18 @ 00:36 by Marilyn Leslie MD) CHF (congestive heart failure) Diabetes GERD (gastroesophageal reflux disease) History of irregular heartbeat Hx of left flank pain Hx of renal calculi Hypertension - Surgical History Surgical History: Surgical History (Last Reviewed 06/05/18 @ 00:36 by Marilyn Leslie MD) H/O prostate biopsy Hx of neck surgery - Family History Family History: Family History (Last Updated 06/05/18 @ 00:36 by Marilyn Leslie MD) Other Family history normal - Tobacco History Second Hand Smoke Exposure: No Tobacco Use In Past 30 Days: No Smoking Status: Current every day smoker Tobacco Type: Cigarettes - Alcohol History How Often Do You Have a Drink Containing Alcohol: Never - Substance Use History Substance History: No History of Abuse - Travel History Recent Travel in the [facility] Within the Last 8 Weeks: No Recent Travel Out of the Country Within the Last 8 Weeks: No - Immunization History Tetanus Immunization: <5 Years Medications and Allergies Active Medications: Active Medications Acetaminophen (Tylenol) 650 mg PO Q4H PRN PRN Reason: Temp > 100.4 Dextrose (D50w Vial) 50 ml IV.PUSH UNSCH PRN PRN Reason: PER HYPOGLYCEMIA PROTOCOL Diltiazem HCl (Cardizem Cd 24hr) 120 mg PO DAILY CATHLEEN Glucagon (Glucagon Inj) 1 mg OTHER PRN PRN PRN Reason: for Hypoglycemia Protocol Sodium Chloride (Ns Inj) 1,000 mls @ 100 mls/hr IV.CONT .Q10H [facility] Last Admin: 06/04/18 21:20 Dose: 100 mls/hr Insulin Aspart (Novolog Insulin Correctional Sugar Inj) 0 unit SQ ACHS CATHLEEN; Protocol Ondansetron HCl (Zofran Inj) 4 mg IV.PUSH Q6H PRN PRN Reason: NAUSEA OR VOMITING Pantoprazole Sodium (Protonix) 40 mg PO DAILY [facility] Sodium Chloride (Ns Flush) 2 ml IV.FLUSH BID [facility] Sodium Chloride (Ns Flush) 2 ml IV.FLUSH PRN PRN PRN Reason: FLUSH AFTER USING IV ACCESS Tamsulosin HCl (Flomax) 0.4 mg PO DAILY [facility] Allergies Allergy/AdvReac Type Severity Reaction Status Date / Time No Known Allergies Allergy Verified 06/04/18 19:08 Home Medications Medication Instructions Recorded Confirmed Type diltiazem HCl 60 mg PO Q12H 04/03/18 06/04/18 History metformin 500 mg PO BID 04/03/18 06/04/18 History nitrofurantoin macrocrystal 100 mg PO BID 04/03/18 06/04/18 History pantoprazole 40 mg PO DAILY 04/03/18 06/04/18 History tamsulosin [Flomax] 0.4 mg PO DAILY 04/03/18 06/04/18 History Exam Vital signs: Vital Signs 06/04/18 17:02 06/04/18 19:09 06/04/18 19:15 Temperature 98.4 F Pulse Rate 98 H 89 88 Respiratory Rate 18 20 20 Blood Pressure 214/96 H 160/79 H 155/80 H Pulse Oximetry 96 95 97 Intake & Output 06/04/18 06/04/18 06/05/18 06:59 18:59 06:59 Weight 108.862 kg Narrative: Gen.: No acute distress Head: Normocephalic. Atraumatic. EENT: Pupils equal round and reactive to light. Nose without drainage. Airway intact. Throat without injection. Cardiovascular: Regular rate and rhythm. No murmurs, rubs or gallops. Respiratory: Lungs clear to auscultation bilaterally. No wheezes or rhonchi. Abdomen: Soft, nontender, nondistended. No peritoneal signs. Musculoskeletal: No gross deformities. No edema. Skin: No obvious rashes or erythema. Neuro: Sensory and motor grossly intact. Cranial nerves II through XII grossly intact. Results - Labs CBC & Chem 7: 06/04/18 19:20 06/04/18 19:20 Labs: Laboratory Results - last 24 hr 06/04/18 06/04/18 06/04/18 19:20 19:20 19:20 WBC 7.8 RBC 5.17 Hgb 14.4 Hct 43.9 MCV 84.9 MCH 27.9 MCHC 32.9 RDW 13.8 Plt Count 136 L MPV 8.9 Neut % (Auto) 74.6 H Lymph % (Auto) 17.0 [place] % (Auto) 6.8 Eos % (Auto) 1.3 Baso % (Auto) 0.3 Neut # (Auto) 5.9 Lymph # (Auto) 1.3 [place] # (Auto) 0.5 Eos # (Auto) 0.1 Baso # (Auto) 0.0 WBC Differential . Differential Comment Auto diff final PT 10.6 INR 1.0 APTT 26.1 Sodium 137 Potassium 3.6 Chloride 101 Carbon Dioxide 28.0 Anion Gap 8 BUN 13 Creatinine 1.02 Estimated GFR 73 L Random Glucose 134 H Calcium 8.5 Magnesium 1.9 Total Bilirubin 0.3 AST 14 L ALT 30 Alkaline Phosphatase 84 Total Protein 7.0 Albumin 3.6 Lipase 105 Urine Color Urine Clarity Urine pH Ur Specific [place] Urine Protein Urine Glucose (UA) Urine Ketones Urine Occult Blood Urine Nitrate Urine Bilirubin Urine Urobilinogen Ur Leukocyte Esterase Urine RBC Urine WBC Micro UA Comment Ur Microscopic Review Urine Culture Comments 06/04/18 19:36 WBC RBC Hgb Hct MCV MCH MCHC RDW Plt Count MPV Neut % (Auto) Lymph % (Auto) [place] % (Auto) Eos % (Auto) Baso % (Auto) Neut # (Auto) Lymph # (Auto) [place] # (Auto) Eos # (Auto) Baso # (Auto) WBC Differential Differential Comment PT INR APTT Sodium Potassium Chloride Carbon Dioxide Anion Gap BUN Creatinine Estimated GFR Random Glucose Calcium Magnesium Total Bilirubin AST ALT Alkaline Phosphatase Total Protein Albumin Lipase Urine Color Red Urine Clarity Marked H Urine pH 7.0 Ur Specific [place] 1.025 Urine Protein 500 or greater Urine Glucose (UA) 50 Urine Ketones Negative Urine Occult Blood Large H Urine Nitrate Negative Urine Bilirubin Negative Urine Urobilinogen Less than 2 Ur Leukocyte Esterase Negative Urine RBC Urine WBC 8 H Micro UA Comment Culture not ind Ur Microscopic Review Not Reportable Urine Culture Comments Culture not ind - Imaging Impressions Abdomen/Pelvis CT 06/04/18 21:16 CONCLUSION: 1. Discrete area of increased density within the posterior aspect of the urinary bladder appears to be contiguous with the anterior lobe of the prostate which probably represents the source of bleeding. 2. Prostate is prominent at 6.6 cm. 3. Bilateral renal cortical cysts, the largest in the upper pole the right kidney measures 12.6 cm in diameter. 4. 2.9 cm hemangioma in the right hepatic lobe. Caprini VTE Risk Assessment Caprini VTE Risk Assessment: Moderate/High Risk (score >= 2) Caprini Risk Assessment Model: Point Value = 1 Point Value = 2 Point Value = 3 Point Value = 5 Age 41-60 Minor surgery BMI > 25 kg/m2 Swollen legs Varicose veins or History of unexplained or recurrent spontaneous Oral contraceptives or hormone replacement Sepsis (< 1 month) Serious lung disease, including pneumonia (< 1 month) Abnormal pulmonary function Acute myocardial infarction Congestive heart failure (< 1 month) History of inflammatory bowel disease Medical patient at bed rest Age 61-74 Arthroscopic surgery Major open surgery (> 45 min) Laparoscopic surgery (> 45 min) Malignancy Confined to bed (> 72 hours) Immobilizing plaster cast Central venous access Age >= 75 History of VTE Family history of VTE Factor V Leiden Prothrombin [id number] Lupus anticoagulant Anticardiolipin antibodies Elevated serum homocysteine Heparin-induced thrombocytopenia Other congenital or acquired thrombophilia Stroke (< 1 month) Elective arthroplasty Hip, pelvis, or leg fracture Acute spinal cord injury (< 1 month) Prophylaxis Regimen: Total Risk Factor Score Risk Level Prophylaxis Regimen 0-1 Low Early ambulation 2 Moderate Order ONE of the following: *Sequential Compression Device (SCD) *Heparin 5000 units SQ BID 3-4 Higher Order ONE of the following medications: *Heparin 5000 units SQ TID *Enoxaparin/Lovenox 40 mg SQ daily (WT < 150 kg, CrCl > 30 mL/min) *Enoxaparin/Lovenox 30 mg SQ daily (WT < 150 kg, CrCl > 10-29 mL/min) *Enoxaparin/Lovenox 30 mg SQ BID (WT < 150 kg, CrCl > 30 mL/min) AND/OR *Sequential Compression Device (SCD) 5 or more Highest Order ONE of the following medications: *Heparin 5000 units SQ TID (Preferred with Epidurals) *Enoxaparin/Lovenox 40 mg SQ daily (WT < 150 kg, CrCl > 30 mL/min) *Enoxaparin/Lovenox 30 mg SQ daily (WT < 150 kg, CrCl > 10-29 mL/min) *Enoxaparin/Lovenox 30 mg SQ BID (WT < 150 kg, CrCl > 30 mL/min) AND *Sequential Compression Device (SCD) Assessment and Plan - Plan Assessment/plan: 1. Hematuria Status post prostate biopsy CT of the abdomen/pelvis significant for an area of increased density within the posterior aspect of the urinary bladder that appears to be contiguous with the anterior lobe of the prostate which probably represents the source of bleeding Dr. Ochoa, urology, consulted. Appreciate recommendations Continuous bladder irrigation Monitor H&H 2. Atrial fibrillation Continue home diltiazem 3. Diabetes mellitus Holding home metformin Sliding-scale insulin Monitor blood glucose 4. CHF Last echo done in 2015 showed an EF of 45-50% Gentle IV fluid hydration FEN N.p.o. Electrolytes: Monitor and replete as needed NS at 70 cc/hour
[2018-06-05] MEDS: Morphine Inj 4 MG/ML Vial IV.PUSH PRN ×2 (02:05→21:29)
[2018-06-05] MEDS: Sod Chloride 0.9% Inj 1,000 ML IV.CONT SCH ×2 (07:22→21:14)
[2018-06-05 07:32] LABS: Hematocrit 42.1 % (39.0-51.0); Hemoglobin 13.9 gm/dL (13.0-17.0)
[2018-06-05] MEDS: Sodium Chloride 0.9% 2 ML Flush BID IV.FLUSH SCH ×2 (08:59→20:26)
[2018-06-05] MEDS: dilTIAZem CD 120 MG Capsule PO SCH (09:15)
[2018-06-05] MEDS: Insulin NovoLOG Aspart Correctional Sugar Inj SQ SCH ×3 (09:19→18:48)
[2018-06-05 13:08] LABS: Hematocrit 40.9 % (39.0-51.0); Hemoglobin 13.7 gm/dL (13.0-17.0)
--- NOTE | 2018-06-05 13:49 | MB ---
cc: Jorge Ochoan Libra DO DATE: 06/05/2018 HISTORY OF PRESENT ILLNESS: This is a very pleasant 67-year-old male who had an elevated PSA and underwent prostate needle biopsy by myself yesterday. He was having a lot of hematuria after the biopsy as well as rectal bleeding. He came to the emergency room and a 3-way Zepeda catheter was placed and he was started on CBI. At the bedside today, I was able to irrigate the catheter to clear and many clots were removed. PAST MEDICAL HISTORY: Includes an elevated PSA, CHF, diabetes, GERD, renal calculi, hypertension. PAST SURGICAL HISTORY: Recent prostate needle biopsy and neck surgery. FAMILY HISTORY: There is no family history of prostate cancer. SOCIAL HISTORY: Current smoker of cigarettes daily. Denies any drinking or using drugs. REVIEW OF SYSTEMS: Denies rectal bleeding and gross hematuria with some clot retention. Denies chest pain or shortness of breath at present. Does have some lower abdominal discomfort. Denies gait disturbances. Denies bleeding disorders. Denies headaches. Denies vision problems, hearing loss. The remaining review of systems reviewed and were negative. PHYSICAL EXAMINATION: GENERAL: He is a well-developed, well-nourished, 67-year-old male in no acute distress. HEENT: Normocephalic, atraumatic. Pupils equal, round, reactive to light. Extraocular movements intact. NECK: Supple. HEART: Regular rate and rhythm. LUNGS: Clear. ABDOMEN: Soft, nontender, nondistended. EXTREMITIES: Show no cyanosis, clubbing, or edema. GENITOURINARY: A 3-way Zepeda catheter is in with gross hematuria, cleared at the bedside manual irrigation. NEUROLOGIC: Cranial nerves 2-12 are intact. LABORATORY DATA: White count 7.8, hemoglobin 14.4, hematocrit 43.9, platelet count 136. PT 10.6, INR 1.0, PTT is 26.1. Sodium 137, potassium 3.6, chloride 101, CO2 28, BUN of 13, creatinine 1.02, glucose of 134. Urinalysis: Large occult blood. Nitrites negative. ASSESSMENT AND PLAN: A 67-year-old male with gross hematuria and rectal bleeding after prostate needle biopsy. We will continue 3-way Zepeda catheter and gentle continuous bladder irrigation. Urine is now clear after manual irrigation. I will continue to monitor for now. Hemoglobin is stable. If urine remains clear overnight, we will discharge in the morning with Zepeda to leg bag and will return to the clinic on Monday and undergo a void trial. Bartolome Ochoa DO SWT/hoa , 01:27 PM , 01:36 PM
[2018-06-05] MEDS: Ciprofloxacin 500 MG Tablet PO SCH (21:15)
[2018-06-06] MEDS: Insulin NovoLOG Aspart Correctional Sugar Inj SQ SCH ×4 (00:01→17:04)
[2018-06-06 05:55] LABS: Baso % (Auto) 0.4 % (0.0-2.0); Eos # (Auto) 0.1 th/mm3 (0.0-0.4); Eos % (Auto) 1.7 % (0.0-4.0); Hematocrit 42.8 % (39.0-51.0); Hemoglobin 14.2 gm/dL (13.0-17.0); Lymph # (Auto) 1.3 th/mm3 (1.0-4.8); Lymph % (Auto) 15.1 % (9.0-44.0); Mean Corpuscular HGB Conc 33.2 % (32.0-36.0); Mean Corpuscular Hemoglobin 28.2 pg (27.0-34.0); Mean Platelet Volume 8.5 fL (7.0-11.0); Mono # (Auto) 0.8 th/mm3 (0.0-0.9); Mono % (Auto) 8.5 % (0.0-8.0); Neut # (Auto) 6.6 th/mm3 (1.8-7.7); Neut % (Auto) 74.3 % (16.0-70.0); Platelet Count 127 th/mm3 (150-450); Red Blood Count 5.04 mil/mm3 (4.50-5.90); Red Cell Distribution Width 13.8 % (11.6-17.2); White Blood Count 8.8 th/mm3 (4.0-11.0)
[2018-06-06 06:20] LABS: Anion Gap 7 meq/L (5-15); Blood Urea Nitrogen 9 mg/dL (7-18); Calcium 8.2 mg/dL (8.5-10.1); Carbon Dioxide 29.4 meq/L (21.0-32.0); Chloride 106 meq/L (98-107); Glomerular Filtration Rate Greater Than 89 mL/min (>89); Glucose,Random 149 mg/dL (74-106); Potassium 3.5 meq/L (3.5-5.1); Sodium 142 meq/L (136-145)
--- NOTE | 2018-06-06 07:20 | P.PN ---
Subjective Interval history: Follow-up on patient with gross hematuria. Patient seen and examined. Discussed with nursing staff, patient had BRBPR earlier this morning. Patient is complaining about Boyd catheter and wants to have it removed. Per nursing staff, this was discussed further with Dr. Ochoa and patient is agreeable to keeping Boyd catheter in. Additionally, Dr. Ochoa reported that some passage of blood following prostate biopsy was to be expected per nursing staff. Boyd will be changed out for a leg bag as he has been cleared from a urologic standpoint to discharge to home. Patient denies any other medical complaints. He denies any dizziness, lightheadedness, chest pain or shortness of breath. He denies any nausea vomiting or abdominal pain. Physical Exam Vital signs: Vital Signs 06/05/18 08:00 06/05/18 12:00 06/05/18 16:00 Temperature 98.5 F 98.9 F 98.7 F Pulse Rate 87 95 H 93 H Respiratory Rate 18 16 18 Blood Pressure 160/89 H 122/78 175/100 H Pulse Oximetry 92 L 96 96 06/05/18 20:00 06/05/18 21:22 06/05/18 21:35 Temperature 98.7 F Pulse Rate 115 H Respiratory Rate 16 Blood Pressure 168/97 H Pulse Oximetry 88 L 06/06/18 00:00 06/06/18 04:00 Temperature 98.8 F 98.1 F Pulse Rate 92 H 88 Respiratory Rate 18 17 Blood Pressure 163/83 H 187/110 H Pulse Oximetry 93 L 93 L Intake & Output 06/05/18 06/06/18 06/06/18 18:59 06:59 18:59 Intake Total 1000 / 1000 1000 / 1000 Output Total 5650 / 5650 8100 / 8100 Balance -4650 / -4650 -7100 / -7100 Intake: IV 1000 / 1000 1000 / 1000 NS Inj 1,000 ML @ 70 mls/hr IV. 1000 / 1000 1000 / 1000 CONT .[id number] CATHLEEN Rx#:[id number] Output: Urine 5650 / 5650 Urine Amount (Catheter) 8100 / 8100 3-way Urethral 8100 / 8100 Other: Bladder Irrigation Fluid - Amount Instilled 3-way Urethral 3,000 Date of Last Bowel Movement 06/05/18 # Bowel Movements 1 Narrative: GENERAL: WDWN male patient, INAD. Awake and alert. Appears comfortable. SKIN: Warm and dry. No rash. HEENT: Atraumatic. Normocephalic. Pupils equal and round. No scleral icterus. No injection or drainage. No nasal bleeding or discharge. Mucous membranes pink and moist. NECK: Trachea midline. CARDIOVASCULAR: Regular rate and rhythm. No murmur auscultated RESPIRATORY: No accessory muscle use. Clear to auscultation. Breath sounds equal bilaterally. GASTROINTESTINAL: Abdomen soft, non-tender, nondistended. Hepatic and splenic margins not palpable. MUSCULOSKELETAL: Extremities without clubbing, cyanosis, or edema. No obvious deformities. GENITOURINARY: Boyd catheter in place with CBI, clear yellow urine noted in bag, some blood noted in tubing. Patient admits he has been pulling at the catheter due to discomfort. NEUROLOGICAL: Awake and alert. No obvious cranial nerve deficits. Motor grossly within normal limits. Able to move all extremities spontaneously. Normal speech. PSYCHIATRIC: Appropriate mood and affect; insight and judgment normal. - Urinary Catheter Management 3-way Urethral Cath placed during this visit: yes Reason for continuing: Gross Hematuria Insertion date: 06/05/18 Insertion time: 22:05 Results - Labs CBC & Chem 7: 06/06/18 05:15 06/06/18 05:15 Laboratory Results - last 24 hr 06/05/18 06/05/18 06/05/18 06:00 09:18 12:35 WBC RBC Hgb 13.9 13.7 Hct 42.1 40.9 MCV MCH MCHC RDW Plt Count MPV Neut % (Auto) Lymph % (Auto) [place] % (Auto) Eos % (Auto) Baso % (Auto) Neut # (Auto) Lymph # (Auto) [place] # (Auto) Eos # (Auto) Baso # (Auto) WBC Differential Differential Comment Sodium Potassium Chloride Carbon Dioxide Anion Gap BUN Creatinine Estimated GFR POC Glucose 189 H Random Glucose Calcium 06/05/18 06/05/18 06/05/18 13:38 18:32 21:17 WBC RBC Hgb Hct MCV MCH MCHC RDW Plt Count MPV Neut % (Auto) Lymph % (Auto) [place] % (Auto) Eos % (Auto) Baso % (Auto) Neut # (Auto) Lymph # (Auto) [place] # (Auto) Eos # (Auto) Baso # (Auto) WBC Differential Differential Comment Sodium Potassium Chloride Carbon Dioxide Anion Gap BUN Creatinine Estimated GFR POC Glucose 151 H 127 H 222 H Random Glucose Calcium 06/06/18 06/06/18 05:15 05:15 WBC 8.8 RBC 5.04 Hgb 14.2 Hct 42.8 MCV 85.0 MCH 28.2 MCHC 33.2 RDW 13.8 Plt Count 127 L MPV 8.5 Neut % (Auto) 74.3 H Lymph % (Auto) 15.1 [place] % (Auto) 8.5 H Eos % (Auto) 1.7 Baso % (Auto) 0.4 Neut # (Auto) 6.6 Lymph # (Auto) 1.3 [place] # (Auto) 0.8 Eos # (Auto) 0.1 Baso # (Auto) 0.0 WBC Differential . Differential Comment Auto diff final Sodium 142 Potassium 3.5 Chloride 106 Carbon Dioxide 29.4 Anion Gap 7 BUN 9 Creatinine 0.79 Estimated GFR Greater than 89 POC Glucose Random Glucose 149 H Calcium 8.2 L Assessment and Plan - Plan 67-year-old male with past medical history frequent for CHF (last echo in 2015 showed an EF of 45-50%), diabetes mellitus, GERD, hypertension and atrial fibrillation not currently on systemic anticoagulation presents to the emergency department for the evaluation of hematuria and bright red blood per rectum. The patient underwent a prostate biopsy with Dr. Ochoa on 06/04/18. Gross hematuria most likely post procedural complication s/p prostate biopsy CT of the abdomen/pelvis significant for an area of increased density within the posterior aspect of the urinary bladder that appears to be contiguous with the anterior lobe of the prostate which probably represents the source of bleeding Dr. Ochoa, urology, following - appreciate assistance. Continuous bladder irrigation. Patient has tolerated well. Urine is clear. Patient cleared for discharge from urologic standpoint with boyd in place and planned follow up in Dr. Ochoa's office on Monday. Monitor H&H - hemoglobin has remained stable. Hgb 14.2 this am. Continue on Cipro per Urology Continue on Flomax Atrial fibrillation, rate controlled Continue home diltiazem continue to monitor HR Hypertension, not well controlled continue on Diltiazem as above Started on Lisinopril 5mg. BP still high, increase Lisinopril to 10mg daily Clonidine prn with parameters Continue to monitor BP and adjust treatment accordingly Diabetes mellitus Holding home metformin Sliding-scale insulin Monitor blood glucose CHF, not decompensated Last echo done in 2015 showed an EF of 45-50% appears euvolemic on exam continue to monitor fluid status DVT prophylaxis Avoid chemical prophylaxis secondary to gross hematuria Discharge patient to home Condition on discharge: Improved Heart healthy diabetic diet as tolerated Ad Yi activity Rx written: Cipro and Lisinopril Follow-up with primary care physician and Dr. Ochoa of Urology on Monday Code Status: Full Discussed Condition With: patient, nursing staff, Dr. Siegel
--- NOTE | 2018-06-06 08:46 | P.PNURO ---
Subjective Patient symptoms today: Pt seen and examined. Urine is clear now. Objective Vital Signs: Vital Signs 06/05/18 12:00 06/05/18 16:00 06/05/18 20:00 Temperature 98.9 F 98.7 F 98.7 F Pulse Rate 95 H 93 H 115 H Respiratory Rate 16 18 Blood Pressure 122/78 175/100 H Pulse Oximetry 96 96 88 L 06/05/18 21:22 06/05/18 21:35 06/06/18 00:00 Temperature 98.8 F Pulse Rate 92 H Respiratory Rate 16 18 Blood Pressure 168/97 H 163/83 H Pulse Oximetry 93 L 06/06/18 04:00 06/06/18 07:31 Temperature 98.1 F 97.9 F Pulse Rate 88 83 Respiratory Rate 17 16 Blood Pressure 187/110 H 190/99 H Pulse Oximetry 93 L 91 L Intake & Output 06/05/18 06/06/18 06/06/18 18:59 06:59 18:59 Intake Total 1000 / 1000 1000 / 1000 Output Total 5650 / 5650 8100 / 8100 Balance -4650 / -4650 -7100 / -7100 Intake: IV 1000 / 1000 1000 / 1000 NS Inj 1,000 ML @ 70 mls/hr IV. 1000 / 1000 1000 / 1000 CONT .[id number] [facility]ATHLE[facility] Rx#:[id number] Output: Urine 5650 / 5650 Urine Amount (Catheter) 8100 / 8100 3-way Urethral 8100 / 8100 Other: Bladder Irrigation Fluid - Amount Instilled 3-way Urethral 3,000 Date of Last Bowel Movement 06/05/18 # Bowel Movements 1 Result Diagrams: 06/06/18 05:15 06/06/18 05:15 Medications and IVs: Active Medications Generic Name Dose Route Start Last Admin Trade Name Freq PRN Reason Stop Dose Admin Acetaminophen 650 mg 06/05/18 00:07 Tylenol PO Q4H PRN Temp > 100.4 Ciprofloxacin HCl 500 mg 06/05/18 21:00 06/05/18 21:15 Cipro PO 500 mg Q12HR CATHLEEN Administration Dextrose 50 ml 06/05/18 00:10 D50w Vial IV.PUSH UNSCH PRN PER HYPOGLYCEMIA PROTOCOL Diltiazem HCl 120 mg 06/05/18 09:00 06/05/18 09:15 Cardizem Cd 24hr PO 120 mg DAILY CATHLEEN Administration Glucagon 1 mg 06/05/18 00:10 Glucagon Inj OTHER PRN PRN for Hypoglycemia Protocol Insulin Aspart 0 unit 06/05/18 08:00 06/06/18 00:01 Novolog Insulin Correctional Sugar Inj SQ Not Given ACHS CATHLEEN Protocol Lisinopril 5 mg 06/06/18 09:00 Prinivil PO DAILY CATHLEEN Metformin HCl 500 mg 06/05/18 18:00 06/05/18 19:00 Glucophage PO 500 mg BIDPC CATHLEEN Administration Morphine Sulfate 4 mg 06/05/18 00:34 06/05/18 21:29 Morphine Inj IV.PUSH 4 mg Q4H PRN Administration pain 6-10 Ondansetron HCl 4 mg 06/05/18 00:07 Zofran Inj IV.PUSH Q6H PRN NAUSEA OR VOMITING Pantoprazole Sodium 40 mg 06/05/18 09:00 06/05/18 09:15 Protonix PO 40 mg DAILY CATHLEEN Administration Sodium Chloride 2 ml 06/05/18 09:00 06/05/18 20:26 Ns Flush IV.FLUSH Not Given BID CATHLEEN Sodium Chloride 2 ml 06/05/18 00:18 Ns Flush IV.FLUSH PRN PRN FLUSH AFTER USING IV ACCESS Tamsulosin HCl 0.4 mg 06/05/18 09:00 06/05/18 09:15 Flomax PO 0.4 mg DAILY CATHLEEN Administration Objective Remarks: Abd:soft,nt,nd Boyd: urine clear Assessment and Plan - Plan Stable s/p PNBx D/C boyd on Monday in office
[2018-06-06] MEDS ORDERED: Lisinopril 5 MG Tablet PO SCH (09:00)
[2018-06-06] MEDS: Sodium Chloride 0.9% 2 ML Flush BID IV.FLUSH SCH (09:50)
[2018-06-06] MEDS: dilTIAZem CD 120 MG Capsule PO SCH (09:50)
[2018-06-06] MEDS: Ciprofloxacin 500 MG Tablet PO SCH (09:50)
[2018-06-06] MEDS ORDERED: Lisinopril 5 MG Tablet PO ONE (13:48)
--- NOTE | 2018-06-06 14:26 | P.DS ---
Date of admission: 06/06/18 09:04 Primary care physician: UNKNOWN Attending physician on discharge: Randa Siegel Anticipated date of discharge: 06/06/18 Brief History from admission: 67-year-old male with past medical history frequent for CHF (last echo in 2016 showed an EF of 45-50%), diabetes mellitus, GERD, hypertension and atrial fibrillation not currently on systemic anticoagulation presents to the emergency department for the evaluation of hematuria and bright red blood per rectum. The patient underwent a prostate biopsy with Dr. Ochoa on 06/04/18. He reports since that time he has had copious quantities of bright red blood per rectum and in his urine. He also reports of burning sensation with urination. He denies chest pain or shortness of breath. Reports some mild to moderate pelvic discomfort. No nausea/vomiting/diarrhea. No lateralizing signs /symptoms. No fever/chills. Patient update on day of discharge: Follow-up on patient with gross hematuria. Patient seen and examined. Discussed with nursing staff, patient had BRBPR earlier this morning. Patient is complaining about Zepeda catheter and wants to have it removed. Per nursing staff, this was discussed further with Dr. Ochoa and patient is agreeable to keeping Zepeda catheter in. Additionally, Dr. Ochoa reported that some passage of blood following prostate biopsy was to be expected per nursing staff. Zepeda will be changed out for a leg bag as he has been cleared from a urologic standpoint to discharge to home. Patient denies any other medical complaints. He denies any dizziness, lightheadedness, chest pain or shortness of breath. He denies any nausea vomiting or abdominal pain. DS: Diagnosis - Discharge Diagnosis (1) Acute retention of urine Status: Acute (2) Hematuria Status: Acute (3) History of prostate biopsy Status: Acute (4) Hypertension Status: Acute DS: Medications - Discharge Medications Prescriptions: ciprofloxacin HCl 500 mg PO Q12HR #10 tab lisinopril 10 mg PO DAILY #60 tab DS: Summary Hospital Course: Patient admitted with copious quantities of bright red blood per rectum and gross hematuria status post prostate biopsy performed by Dr. Ochoa on 2017. Patient's hemoglobin admission was stable at 14.4 and hematocrit of 43.9. Patient was started on continuous bladder irrigation. He was seen in consultation by Dr. Ochoa. Patient had an unforeseen and unexpected recovery. Patient's urine cleared. His hemoglobin remained stable. Patient was cleared for discharge from a urologic standpoint with instructions to keep Zepeda in with a leg bag and follow-up with Dr. Ochoa's office in 2 days. Patient's blood pressure was elevated and he was started Lisinopril 5mg which was increased to 10 mg prior to discharge. - Time Spent with Patient Total time spent providing and/or coordinating discharge services: Greater than 30 minutes - Quality: VTE Deep Vein Thrombosis/Pulmonary Embolism Present on Admission: No Exam Vital signs: Vital Signs 06/05/18 16:00 06/05/18 20:00 06/05/18 21:22 Temperature 98.7 F 98.7 F Pulse Rate 93 H 115 H Respiratory Rate 18 Blood Pressure 175/100 H 168/97 H Pulse Oximetry 96 88 L 06/05/18 21:35 06/06/18 00:00 06/06/18 04:00 Temperature 98.8 F 98.1 F Pulse Rate 92 H 88 Respiratory Rate 16 18 17 Blood Pressure 163/83 H 187/110 H Pulse Oximetry 93 L 93 L 06/06/18 07:31 06/06/18 12:09 Temperature 97.9 F 98.3 F Pulse Rate 83 83 Respiratory Rate 16 16 Blood Pressure 190/99 H 191/98 H Pulse Oximetry 91 L Intake & Output 06/05/18 06/06/18 06/06/18 18:59 06:59 18:59 Intake Total 1000 / 1000 1000 / 1000 1000 / 1000 Output Total 5650 / 5650 8100 / 8100 Balance -4650 / -4650 -7100 / -7100 1000 / 1000 Intake: IV 1000 / 1000 1000 / 1000 1000 / 1000 NS Inj 1,000 ML @ 70 mls/hr IV. 1000 / 1000 1000 / 1000 1000 / 1000 CONT .[id number] [facility] Rx#:[id number] Output: Urine 5650 / 5650 Urine Amount (Catheter) 8100 / 8100 3-way Urethral 8100 / 8100 Other: Bladder Irrigation Fluid - Amount Instilled 3-way Urethral 3,000 Date of Last Bowel Movement 06/05/18 06/05/18 # Bowel Movements 1 Narrative: GENERAL: WDWN male patient, INAD. Awake and alert. Appears comfortable. SKIN: Warm and dry. No rash. HEENT: Atraumatic. Normocephalic. Pupils equal and round. No scleral icterus. No injection or drainage. No nasal bleeding or discharge. Mucous membranes pink and moist. NECK: Trachea midline. CARDIOVASCULAR: Regular rate and rhythm. No murmur auscultated RESPIRATORY: No accessory muscle use. Clear to auscultation. Breath sounds equal bilaterally. GASTROINTESTINAL: Abdomen soft, non-tender, nondistended. Hepatic and splenic margins not palpable. MUSCULOSKELETAL: Extremities without clubbing, cyanosis, or edema. No obvious deformities. GENITOURINARY: Zepeda catheter in place with CBI, clear yellow urine noted in bag, some blood noted in tubing. Patient admits he has been pulling at the catheter due to discomfort. NEUROLOGICAL: Awake and alert. No obvious cranial nerve deficits. Motor grossly within normal limits. Able to move all extremities spontaneously. Normal speech. PSYCHIATRIC: Appropriate mood and affect; insight and judgment normal. Results Procedures completed during hospitalization: None Labs on day of discharge: Labs from last 24 hours 06/06/18 06/06/18 06/06/18 12:55 05:15 05:15 WBC 8.8 RBC 5.04 Hgb 14.2 Hct 42.8 MCV 85.0 MCH 28.2 MCHC 33.2 RDW 13.8 Plt Count 127 L MPV 8.5 Neut % (Auto) 74.3 H Lymph % (Auto) 15.1 [place] % (Auto) 8.5 H Eos % (Auto) 1.7 Baso % (Auto) 0.4 Neut # (Auto) 6.6 Lymph # (Auto) 1.3 [place] # (Auto) 0.8 Eos # (Auto) 0.1 Baso # (Auto) 0.0 WBC Differential . Differential Comment Auto diff final Sodium 142 Potassium 3.5 Chloride 106 Carbon Dioxide 29.4 Anion Gap 7 BUN 9 Creatinine 0.79 Estimated GFR Greater than 89 POC Glucose 157 H Random Glucose 149 H Calcium 8.2 L 06/05/18 06/05/18 21:17 18:32 WBC RBC Hgb Hct MCV MCH MCHC RDW Plt Count MPV Neut % (Auto) Lymph % (Auto) [place] % (Auto) Eos % (Auto) Baso % (Auto) Neut # (Auto) Lymph # (Auto) [place] # (Auto) Eos # (Auto) Baso # (Auto) WBC Differential Differential Comment Sodium Potassium Chloride Carbon Dioxide Anion Gap BUN Creatinine Estimated GFR POC Glucose 222 H 127 H Random Glucose Calcium - Impressions ITS Impressions Abdomen/Pelvis CT 06/04/18 21:16 CONCLUSION: 1. Discrete area of increased density within the posterior aspect of the urinary bladder appears to be contiguous with the anterior lobe of the prostate which probably represents the source of bleeding. 2. Prostate is prominent at 6.6 cm. 3. Bilateral renal cortical cysts, the largest in the upper pole the right kidney measures 12.6 cm in diameter. 4. 2.9 cm hemangioma in the right hepatic lobe. Discharge Plan - Discharge Disposition Patient Disposition: 01 Discharge Home - Discharge Condition Condition: Stable - Discharge Order Discharge Orders: Discharge Order (Routine); Ordered 06/06/18 Ordered By: Barbara Simon - Discharge Details Anticipated Discharge Date: 06/06/18 Discharge Comment: discharge pending Urology clearance and improvement in blood pressure - Physicians Team Primary Care Provider: UNKNOWN, Attending Provider: Randa Siegel Other Providers: Jose Angel Rhodes MD ; Milly Atkins
[2018-06-06 17:16] VITALS: BP 157/99; PULSE 81; RESP 18; TEMP 97.9; O2SAT 96
[2018-06-07] MEDS ORDERED: Lisinopril 5 MG Tablet PO SCH (09:00)
== END 2018-06-06 18:42 | disposition home or self-care (01) ==
LOC: NEDA 16:59 → NEPC 16:59 → NEDA 06-05 03:08 → NEPHCDU 06-05 03:16
PROVIDERS: ADMIT Hospitalist; ATTEND Hospitalist

== ENCOUNTER 2018-10-12 08:16 | Inpatient (IN) ==
--- NOTE | 2018-10-12 08:32 | ED ---
HPI General Chief complaint: Respiratory Symptoms Stated complaint: SOB Time Seen by Provider: 10/12/18 08:22 Source: patient Mode of arrival: ambulatory Limitations: no limitations History of Present Illness HPI narrative: 67 y/o male presents with shortness of breath for the past week. He notes intermittently swelling in his legs with right more then left. 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 He denies any pain other symptoms. Onset (ago): week(s) Location: chest Radiation: non-radiation Pain Consistency: intermittent Relieving factors: none Exacerbating factors: movement Associated symptoms: Reports denies other symptoms Treatments prior to arrival: Reports none Related Data Home Medications Medication Instructions Recorded Confirmed diltiazem HCl 60 mg PO Q12H 04/03/18 10/12/18 metformin 500 mg PO BID 04/03/18 10/12/18 pantoprazole 40 mg PO DAILY 04/03/18 10/12/18 tamsulosin [Flomax] 0.4 mg PO DAILY 04/03/18 10/12/18 Previous Rx's Medication Instructions Recorded ciprofloxacin HCl 500 mg PO Q12HR #10 tab 06/06/18 lisinopril 10 mg PO DAILY #60 tab 06/06/18 Allergies Allergy/AdvReac Type Severity Reaction Status Date / Time No Known Allergies Allergy Verified 06/25/18 17:56 Review of Systems ROS: all other systems reviewed are negative [facility] Medical History Medical History CHF (congestive heart failure) (Acute) Diabetes (Acute) GERD (gastroesophageal reflux disease) (Acute) History of irregular heartbeat (Acute) Hx of left flank pain (Acute) Hx of renal calculi (Acute) Hypertension (Acute) Surgical History Surgical History H/O prostate biopsy (Acute) Hx of neck surgery (Acute) Family History Family History Other Family history normal Social History Social History Substance History: No History of Abuse Second Hand Smoke Exposure: No Smoking Status: Never smoker Tobacco Type: Cigarettes How Often Do You Have a Drink Containing Alcohol: Monthly or less Recent Travel in [facility] within the Last 8 Weeks: No Recent Out of Country Travel within the Last 8 Weeks: No Exam Narrative Exam Narrative: GENERAL: 67 y/o male in no apparent distress SKIN: Focused skin assessment warm/dry. HEAD: Atraumatic. Normocephalic. EYES: Pupils equal and round. No scleral icterus. No injection or drainage. ENT: No nasal bleeding or discharge. Mucous membranes pink and moist. NECK: Trachea midline. No JVD. CARDIOVASCULAR: Regular rate and rhythm. RESPIRATORY: No accessory muscle use. decreased breath sounds bilaterally. GASTROINTESTINAL: Abdomen soft, non-tender, nondistended. MUSCULOSKELETAL: No obvious deformities. No clubbing. No cyanosis. mild edema. NEUROLOGICAL: Awake and alert. Motor grossly within normal limits. Normal speech. PSYCHIATRIC: Appropriate mood and affect; insight and judgment normal. Course Reevaluation(s) Reevaluation #1: patient with significant uop after lasix and feeling better, will admit for further care, likely chf exacerbation Consultations Consultation #1: dr moore agrees to admit and will order labetaolol Initial Documented Vital Signs Temperature 97.1 F L 10/12/18 08:17 Pulse Rate 126 H 10/12/18 08:17 Respiratory Rate 24 10/12/18 08:17 Blood Pressure 208/113 H 10/12/18 08:17 Pulse Oximetry 90 L 10/12/18 08:17 Last Documented Vital Signs Temperature 97.1 F L 10/12/18 08:17 Pulse Rate 105 H 10/12/18 09:15 Respiratory Rate 26 H 10/12/18 08:56 Blood Pressure 204/96 H 10/12/18 08:56 Pulse Oximetry 94 L 10/12/18 09:15 Medical Decision Making [facility] Narrative Medical decision making narrative: will check labs, cxr and reevaluate Medical Screen Exam Complete: Yes Emergency Medical Condition: Yes Differential Diagnosis Differential Diagnosis: chf, anemia, renal failure, pneumonia, pe Lab Data Lab results reviewed: Yes I reviewed the patient's lab results. Result diagrams: 10/12/18 08:30 10/12/18 08:30 Lab Results 10/12/18 10/12/18 10/12/18 Range/Units 08:30 08:30 08:30 WBC 5.6 (4.0-11.0) th/mm3 RBC 5.34 (4.50-5.90) mil/mm3 Hgb 15.5 (13.0-17.0) gm/dL Hct 46.1 (39.0-51.0) % MCV 86.4 (80.0-100.0) fL MCH 28.9 (27.0-34.0) pg MCHC 33.5 (32.0-36.0) % RDW 14.2 (11.6-17.2) % Plt Count 167 (150-450) th/mm3 MPV 8.9 (7.0-11.0) fL Neut % (Auto) 59.7 (16.0-70.0) % Lymph % (Auto) 28.1 (9.0-44.0) % [place] % (Auto) 8.6 H (0.0-8.0) % Eos % (Auto) 3.0 (0.0-4.0) % Baso % (Auto) 0.6 (0.0-2.0) % Neut # (Auto) 3.3 (1.8-7.7) th/mm3 Lymph # (Auto) 1.6 (1.0-4.8) th/mm3 [place] # (Auto) 0.5 (0.0-0.9) th/mm3 Eos # (Auto) 0.2 (0.0-0.4) th/mm3 Baso # (Auto) 0.0 (0.0-0.2) th/mm3 WBC Differential . Differential Comment Auto diff final PT 10.0 (9.8-11.6) sec INR 1.0 Ratio APTT 25.9 (23.4-31.7) sec Sodium (136-145) meq/L Potassium (3.5-5.1) meq/L Chloride (98-107) meq/L Carbon Dioxide (21.0-32.0) meq/L Anion Gap (5-15) meq/L BUN (7-18) mg/dL Creatinine (0.60-1.30) mg/dL Estimated GFR (>89) mL/min Random Glucose (74-106) mg/dL Lactic Acid 1.5 (0.4-2.0) mmol/L Calcium (8.5-10.1) mg/dL Magnesium (1.5-2.5) mg/dL Total Bilirubin (0.2-1.0) mg/dL AST (15-37) U/L ALT (12-78) U/L Alkaline Phosphatase (45-117) U/L Total Creatine Kinase (39-308) U/L Troponin I (0.02-0.05) ng/mL B-Natriuretic Peptide (0-100) pg/mL Total Protein (6.4-8.2) g/dL Albumin (3.4-5.0) g/dL Urine Color (Yellw/Straw) Urine Clarity (Clear) Urine pH (5.0-8.5) Ur Specific [place] (1.002-1.035) Urine Protein (Neg-Trace) mg/dL Urine Glucose (UA) (Negative) mg/dL Urine Ketones (Negative) mg/dL Urine Occult Blood (Negative) Urine Nitrate (Negative) Urine Bilirubin (Negative) Urine Urobilinogen (Less than 2) mg/dL Ur Leukocyte Esterase (Negative) Urine RBC (0-3) /hpf Urine WBC (0-5) /hpf Amorphous Sediment (None) /hpf Urine Mucus (Occasional) /lpf Micro UA Comment Ur Microscopic Review Urine Culture Comments 10/12/18 10/12/18 10/12/18 Range/Units 08:30 08:30 09:00 WBC (4.0-11.0) th/mm3 RBC (4.50-5.90) mil/mm3 Hgb (13.0-17.0) gm/dL Hct (39.0-51.0) % MCV (80.0-100.0) fL MCH (27.0-34.0) pg MCHC (32.0-36.0) % RDW (11.6-17.2) % Plt Count (150-450) th/mm3 MPV (7.0-11.0) fL Neut % (Auto) (16.0-70.0) % Lymph % (Auto) (9.0-44.0) % [place] % (Auto) (0.0-8.0) % Eos % (Auto) (0.0-4.0) % Baso % (Auto) (0.0-2.0) % Neut # (Auto) (1.8-7.7) th/mm3 Lymph # (Auto) (1.0-4.8) th/mm3 [place] # (Auto) (0.0-0.9) th/mm3 Eos # (Auto) (0.0-0.4) th/mm3 Baso # (Auto) (0.0-0.2) th/mm3 WBC Differential Differential Comment PT (9.8-11.6) sec INR Ratio APTT (23.4-31.7) sec Sodium 138 (136-145) meq/L Potassium 3.4 L (3.5-5.1) meq/L Chloride 103 (98-107) meq/L Carbon Dioxide 31.1 (21.0-32.0) meq/L Anion Gap 4 L (5-15) meq/L BUN 12 (7-18) mg/dL Creatinine 0.97 (0.60-1.30) mg/dL Estimated GFR 78 L (>89) mL/min Random Glucose 209 H (74-106) mg/dL Lactic Acid (0.4-2.0) mmol/L Calcium 8.5 (8.5-10.1) mg/dL Magnesium 2.0 (1.5-2.5) mg/dL Total Bilirubin 0.4 (0.2-1.0) mg/dL AST 46 H (15-37) U/L ALT 45 (12-78) U/L Alkaline Phosphatase 93 (45-117) U/L Total Creatine Kinase 67 (39-308) U/L Troponin I Less than 0.02 L (0.02-0.05) ng/mL B-Natriuretic Peptide 87 (0-100) pg/mL Total Protein 7.6 (6.4-8.2) g/dL Albumin 4.0 (3.4-5.0) g/dL Urine Color Yellow (Yellw/Straw) Urine Clarity Hazy H (Clear) Urine pH 8.0 (5.0-8.5) Ur Specific [place] 1.010 (1.002-1.035) Urine Protein 500 or greater (Neg-Trace) mg/dL Urine Glucose (UA) 150 H (Negative) mg/dL Urine Ketones Negative (Negative) mg/dL Urine Occult Blood Small H (Negative) Urine Nitrate Negative (Negative) Urine Bilirubin Negative (Negative) Urine Urobilinogen Less than 2 (Less than 2) mg/dL Ur Leukocyte Esterase Negative (Negative) Urine RBC 6 H (0-3) /hpf Urine WBC 3 (0-5) /hpf Amorphous Sediment Rare H (None) /hpf Urine Mucus Few H (Occasional) /lpf Micro UA Comment Culture not ind Ur Microscopic Review Not Reportable Urine Culture Comments Culture not ind Imaging Data Attestation: I personally reviewed and interpreted this imaging study as follows : Radiologist's impression: Chest X-Ray 10/12/18 08:23 CONCLUSION: 1. Mild central pulmonary vascular congestion. 2. Cardiomegaly. Chest CTA 10/12/18 09:05 CONCLUSION: 1. This study is negative for pulmonary embolism. 2. Focal patchy opacity is noted within the left upper lobe consistent with possible pneumonia and/or scarring. Clinical correlation is recommended. 3. Mildly prominent pretracheal and subcarinal mediastinal lymphadenopathy is noted with the largest node measuring 17 mm. 4. Small pericardial effusion. 5. Cardiomegaly. 6. Mild scattered underlying emphysematous changes are noted bilaterally. 7. Large right renal cyst measuring 12.3 cm. Discharge Plan Discharge Disposition Patient Disposition: ED Admit(ED Internal Use Only) Discharge Order Discharge Orders: ED Use Only Admit Order (Routine); Ordered 10/12/18 Ordered By: Oneida Muniz Discharge Details Diagnosis: Respiratory failure, Hypertension Physicians Team ED Provider: Oneida Muniz Primary Care Provider: UNKNOWN, Attending Provider: Fatuma Moore Discharge Interventions Interventions: Vital Signs Last Done: 10/12/18 08:56 Status ED Status: Admitted Patient
[2018-10-12 08:40] LABS: Baso % (Auto) 0.6 % (0.0-2.0); Eos # (Auto) 0.2 th/mm3 (0.0-0.4); Hematocrit 46.1 % (39.0-51.0); Hemoglobin 15.5 gm/dL (13.0-17.0); Lymph # (Auto) 1.6 th/mm3 (1.0-4.8); Lymph % (Auto) 28.1 % (9.0-44.0); Mean Corpuscular HGB Conc 33.5 % (32.0-36.0); Mean Corpuscular Hemoglobin 28.9 pg (27.0-34.0); Mean Corpuscular Volume 86.4 fL (80.0-100.0); Mean Platelet Volume 8.9 fL (7.0-11.0); Mono # (Auto) 0.5 th/mm3 (0.0-0.9); Mono % (Auto) 8.6 % (0.0-8.0); Neut # (Auto) 3.3 th/mm3 (1.8-7.7); Neut % (Auto) 59.7 % (16.0-70.0); Platelet Count 167 th/mm3 (150-450); Red Blood Count 5.34 mil/mm3 (4.50-5.90); Red Cell Distribution Width 14.2 % (11.6-17.2); White Blood Count 5.6 th/mm3 (4.0-11.0)
[2018-10-12 08:48] LABS: Activated Partial Thrombo Time 25.9 sec (23.4-31.7)
[2018-10-12 08:56] LABS: Alanine Aminotransferase 45 U/L (12-78); Anion Gap 4 meq/L (5-15); Aspartate Aminotransferase 46 U/L (15-37); Blood Urea Nitrogen 12 mg/dL (7-18); Calcium 8.5 mg/dL (8.5-10.1); Carbon Dioxide 31.1 meq/L (21.0-32.0); Chloride 103 meq/L (98-107); Glomerular Filtration Rate 78 mL/min (>89); Glucose,Random 209 mg/dL (74-106); Potassium 3.4 meq/L (3.5-5.1); Sodium 138 meq/L (136-145)
[2018-10-12 09:01] LABS: Alkaline Phosphatase 93 U/L (45-117); Total Protein 7.6 g/dL (6.4-8.2)
--- NOTE | 2018-10-12 09:03 | XR ---
EXAM DATE: 10/12/2018 8:42 AM EST AGE/SEX: 67 years / Male INDICATIONS: Short of breath. CLINICAL DATA: This is the patient's initial encounter. Patient reports that signs and symptoms have been present for 1 day and indicates a pain score of 4/10. MEDICAL/SURGICAL HISTORY: None. None. COMPARISON: [facility] [place], CHEST SINGLE AP, 07/07/2016. . FINDINGS: The heart is enlarged. Mild central pulmonary vascular congestion is noted. No focal alveolar consoli dation is noted. CONCLUSION: 1. Mild central pulmonary vascular congestion. 2. Cardiomegaly. Electronically signed by: Sammy Wood MD Board Certified Radiologist 10/12/2018 9:02 AM EST
[2018-10-12 09:10] LABS: Creatine Kinase 67 U/L (39-308)
[2018-10-12 09:29] LABS: Amorphous Sediment,Urine Rare /hpf; Bilirubin,Urine Negative (Negative); Clarity,Urine Hazy (Clear); Color,Urine Yellow (Yellw/Straw); Glucose,Urine (UA) 150 mg/dL (Negative); Leukocyte Esterase,Urine Negative (Negative); Mucus,Urine Few /lpf (Occasional); Nitrite,Urine Negative (Negative)
--- NOTE | 2018-10-12 09:56 | CT ---
EXAM DATE: 10/12/2018 9:45 AM EST AGE/SEX: 67 years / Male INDICATIONS: Chest pain. CLINICAL DATA: This is the patient's initial encounter. Patient reports that signs and symptoms have been present for 1 day and indicates a pain score of 6/10. MEDICAL/SURGICAL HISTORY: Congestive heart failure. Gastroesophageal reflux disease. Hypertension . Renal calculi. None. RADIATION DOSE: 10.55 CTDI (mGy) COMPARISON: No prior exams available for comparison. TECHNIQUE: Volumetric scanning was performed using a multi-row detector CT scanner during bolus infu katherine of 75 ml Omnipaque 350 (iohexol) nonionic water-soluble contrast as a single exam dose. The abril a was post processed with a variety of visualization algorithms including full volume maximum intensi ty projection and sliding thin slab reformation. Using automated exposure control and adjustment of t he mA and/or kV according to patient size, radiation dose was kept as low as reasonably achievable to obtain optimal diagnostic quality images. DICOM format image data is available electronically for r eview and comparison. FINDINGS: Pulmonary Arteries: No filling defects are seen in the pulmonary arteries out to the subsegmental ve ssels. The left and right pulmonary arteries are normal in diameter. Lung: Focal patchy opacity is noted within the left upper lobe consistent with possible pneumonia an d/or scarring. Clinical correlation is recommended. Mild scattered underlying emphysematous changes a re noted bilaterally. No pulmonary nodule or mass is noted. Effusion: None. Mediastinum: The heart is enlarged. Small pericardial effusion is noted. Mildly prominent pretrachea l and subcarinal mediastinal lymphadenopathy is noted with the largest node measuring 17 mm. Other: The axilla is unremarkable. Large right renal cyst measuring 12.3 cm is noted. CONCLUSION: 1. This study is negative for pulmonary embolism. 2. Focal patchy opacity is noted within the left upper lobe consistent with possible pneumonia and/o r scarring. Clinical correlation is recommended. 3. Mildly prominent pretracheal and subcarinal mediastinal lymphadenopathy is noted with the largest node measuring 17 mm. 4. Small pericardial effusion. 5. Cardiomegaly. 6. Mild scattered underlying emphysematous changes are noted bilaterally. 7. Large right renal cyst measuring 12.3 cm. Electronically signed by: Sammy Wood MD Board Certified Radiologist 10/12/2018 9:55 AM EST
[2018-10-12] MEDS ORDERED: Azithromycin Inj 500 MG in Sodium Chlor 0.9% Inj 250 ML IV.SIG STA (10:28)
[2018-10-12] MEDS ORDERED: Bisacodyl 10 MG Supp RECTAL PRN (10:50)
[2018-10-12] MEDS ORDERED: Acetaminophen 325 MG Tablet PO PRN (10:50)
--- NOTE | 2018-10-12 11:10 | ECG ---
Date Performed: 10/12/2018 Time Performed: 08:25:01 PTAGE: 67 years EKG: SINUS TACHYCARDIA WITH OCCASIONAL SUPRAVENTRICULAR PREMATURE COMPLEXES NONSPECIFIC INTRAVEN TRICULAR CONDUCTION DELAY ST/T-WAVE ABNORMALITY, CONSIDER INFERIOR ISCHEMIA ABNORMAL ECG INTERPRETATI ON BASED ON A DEFAULT AGE OF 40 YEARS NO PREVIOUS TRACING DOCTOR: García Leiva Interpretating Date/Time 10/12/2018 11:09:35
[2018-10-12] MEDS: Enoxaparin Inj 40 MG/0.4 ML Syringe SQ SCH (11:39)
[2018-10-12] MEDS ORDERED: Labetalol HCl Inj 20 MG/4 ML Vial IV.PUSH ONE (12:00)
[2018-10-12] MEDS ORDERED: Dextrose 50% in Water 50 ML Vial IV.PUSH PRN (12:06)
--- NOTE | 2018-10-12 14:37 | P.HPIM ---
History of Present Illness Service: Hospitalist Primary Care Physician: UNKNOWN Chief Complaint: Shortness of breath History of Present Illness: Mr. Harrison is a pleasant 67-year-old male with a history of hypertension, diabetes mellitus and CHF who presents to the emergency department on 10/12/2018 due to shortness of breath. Patient recently drove to [place]. After he drove back to [place], he started noticing shortness of breath especially at night. He reports right lower extremity swelling as well which has improved since then. He denies any cough, fever or chills. Denies any chest pain, abdominal pain. Denies any changes in bowel or bladder habits. On arrival pulse 126, respiratory rate 24, pulse oximetry 90% on room air, blood pressure 208/113. CBC largely unremarkable. Hemoglobin 14.5 , hematocrit 45.1. Creatinine 0.97. Glucose 209. CT pulmonary angiogram shows no PE but shows left upper lobe opacity. Past medical history: Hypertension, diabetes mellitus, GERD, CHF. Past surgical history: No major surgeries in the past. Social history: Patient smokes about 10 cigarettes a day. Denies using alcohol or illicit drugs. Family history: No family history of heart disease, cancer. Inpatient Certification Inpatient Certification: I certify that the inpatient services were ordered in accordance with Medicare regulations governing the order. This includes certification that hospital inpatient services are reasonable and necessary and in the case of services not specified as inpatient-only under 42 CFR 419.22(n), that they are appropriately provided as inpatient services in accordance to with the 2-midnight benchmark under 43 CFR 412.3(e) Estimated Total Length of Stay (Days): 3 Plans for Post Hospital Care: Home Review of Systems Review of Systems: all other systems reviewed are negative [facility] Medical History Medical History CHF (congestive heart failure) (Acute) Diabetes (Acute) GERD (gastroesophageal reflux disease) (Acute) History of irregular heartbeat (Acute) Hx of left flank pain (Acute) Hx of renal calculi (Acute) Hypertension (Acute) Surgical History Surgical History H/O prostate biopsy (Acute) Hx of neck surgery (Acute) Family History Family History Other Family history normal Social History Social History Substance History: No History of Abuse Second Hand Smoke Exposure: No Smoking Status: Never smoker Tobacco Type: Cigarettes How Often Do You Have a Drink Containing Alcohol: Monthly or less Recent Travel in [facility] within the Last 8 Weeks: No Recent Out of Country Travel within the Last 8 Weeks: No Immunization History Tetanus Immunization: Unsure Medications and Allergies Allergies Allergy/AdvReac Type Severity Reaction Status Date / Time No Known Allergies Allergy Verified 06/25/18 17:56 Home Medications Medication Instructions Recorded Confirmed Type diltiazem HCl 60 mg PO Q12H 04/03/18 10/12/18 History metformin 500 mg PO BID 04/03/18 10/12/18 History pantoprazole 40 mg PO DAILY 04/03/18 10/12/18 History tamsulosin [Flomax] 0.4 mg PO DAILY 04/03/18 10/12/18 History Active Medications: Active Medications Acetaminophen (Tylenol) 650 mg PO Q4H PRN PRN Reason: Headache, fever, pain 1-4 Al Hydroxide/Mg Hydroxide (Milk Of Magnesia Liq) 30 ml PO Q12H PRN PRN Reason: Mild Constipation Bisacodyl (Dulcolax Supp) 10 mg RECTAL DAILY PRN PRN Reason: SEVERE CONSITIPATION Dextrose (D50w Vial) 50 ml IV.PUSH UNSCH PRN PRN Reason: PER HYPOGLYCEMIA PROTOCOL Enoxaparin Sodium (Lovenox Inj) 40 mg SQ Q24H [facility] Last Admin: 10/12/18 11:39 Dose: 40 mg Furosemide (Lasix Inj) 40 mg IV.PUSH BID@0900,1800 CATHLEEN Glucagon (Glucagon Inj) 1 mg OTHER PRN PRN PRN Reason: for Hypoglycemia Protocol Insulin Aspart (Novolog Insulin Correctional Sugar Inj) 0 unit SQ ACHS CATHLEEN; Protocol Lactulose (Lactulose Liq) 30 ml PO DAILY PRN PRN Reason: SEVERE CONSITIPATION Nifedipine (Procardia Xl) 60 mg PO DAILY [facility]ATHLE[facility] Ondansetron HCl (Zofran Inj) 4 mg IV.PUSH Q6H PRN PRN Reason: NAUSEA OR VOMITING Pantoprazole Sodium (Protonix) 40 mg PO DAILY [facility] Last Admin: 10/12/18 13:36 Dose: 40 mg Potassium Chloride (K-Dur) 20 meq PO BID [facility] Sennosides (Senokot) 17.2 mg PO Q12H PRN PRN Reason: Moderate Constipation Sodium Chloride (Ns Flush) 2 ml IV.FLUSH BID [facility] Sodium Chloride (Ns Flush) 2 ml IV.FLUSH PRN PRN PRN Reason: FLUSH AFTER USING IV ACCESS Tamsulosin HCl (Flomax) 0.4 mg PO DAILY [facility] Last Admin: 10/12/18 13:35 Dose: 0.4 mg Physical Exam Vital signs: Vital Signs 10/12/18 08:17 10/12/18 08:56 10/12/18 09:15 Temperature 97.1 F L Pulse Rate 126 H 107 H 105 H Respiratory Rate 24 26 H Blood Pressure 208/113 H 204/96 H Pulse Oximetry 90 L 94 L 94 L 10/12/18 11:38 10/12/18 14:09 Temperature Pulse Rate 98 H 94 H Respiratory Rate 22 22 Blood Pressure 147/92 H 136/82 Pulse Oximetry 97 96 Intake & Output 10/11/18 10/12/18 10/12/18 18:59 06:59 18:59 Intake Total 830 / 830 Output Total 1000 / 1000 Balance -170 / -170 Weight 108.862 kg Intake: IV 350 / 350 Azithromycin Inj 500 MG In NS 250 / 250 Inj 250 ML @ 250 mls/hr IV.SIG STAT STA Rx#:[id number] Rocephin Inj 2,000 MG In NS Inj 100 / 100 100 ML @ 200 mls/hr IV.SIG STAT STA Rx#:[id number] Oral 480 / 480 Output: Urine 1000 / 1000 Other: # Voids 4 Narrative: GENERAL: This is a well-nourished, well-developed patient, in no apparent distress. SKIN: No rashes, ecchymoses or lesions. Warm and dry. HEAD: Atraumatic. Normocephalic. No temporal or scalp tenderness. EYES: Pupils equal round and reactive. No injection or drainage. ENT: Nose without bleeding, purulent drainage or septal hematoma. Airway patent. NECK: Trachea midline. No lymphadenopathy. Supple, nontender, no meningeal signs. CARDIOVASCULAR: Regular rhythm, tachycardic without murmurs, gallops, or rubs. No JVD. RESPIRATORY: Moderate air entry, scattered crackles noted. No wheezing appreciated. GASTROINTESTINAL: Abdomen soft, non-tender, nondistended. No guarding. MUSCULOSKELETAL: Extremities without clubbing, cyanosis, or edema. Right calf area is somewhat warmer and slightly bigger than the left. NEUROLOGICAL: Awake and alert. Cranial nerves II through XII intact. No focal neurological deficits. Normal speech. Results Labs CBC & Chem 7: 10/12/18 08:30 10/12/18 08:30 Imaging Impressions Chest X-Ray 10/12/18 08:23 CONCLUSION: 1. Mild central pulmonary vascular congestion. 2. Cardiomegaly. Chest CTA 10/12/18 09:05 CONCLUSION: 1. This study is negative for pulmonary embolism. 2. Focal patchy opacity is noted within the left upper lobe consistent with possible pneumonia and/or scarring. Clinical correlation is recommended. 3. Mildly prominent pretracheal and subcarinal mediastinal lymphadenopathy is noted with the largest node measuring 17 mm. 4. Small pericardial effusion. 5. Cardiomegaly. 6. Mild scattered underlying emphysematous changes are noted bilaterally. 7. Large right renal cyst measuring 12.3 cm. Caprini VTE Risk Assessment Caprini VTE Risk Assessment: Moderate/High Risk (score >= 2) Caprini Risk Assessment Model: Point Value = 1 Point Value = 2 Point Value = 3 Point Value = 5 Age 41-60 Minor surgery BMI > 25 kg/m2 Swollen legs Varicose veins or History of unexplained or recurrent spontaneous Oral contraceptives or hormone replacement Sepsis (< 1 month) Serious lung disease, including pneumonia (< 1 month) Abnormal pulmonary function Acute myocardial infarction Congestive heart failure (< 1 month) History of inflammatory bowel disease Medical patient at bed rest Age 61-74 Arthroscopic surgery Major open surgery (> 45 min) Laparoscopic surgery (> 45 min) Malignancy Confined to bed (> 72 hours) Immobilizing plaster cast Central venous access Age >= 75 History of VTE Family history of VTE Factor V Leiden Prothrombin [id number] Lupus anticoagulant Anticardiolipin antibodies Elevated serum homocysteine Heparin-induced thrombocytopenia Other congenital or acquired thrombophilia Stroke (< 1 month) Elective arthroplasty Hip, pelvis, or leg fracture Acute spinal cord injury (< 1 month) Prophylaxis Regimen: Total Risk Factor Score Risk Level Prophylaxis Regimen 0-1 Low Early ambulation 2 Moderate Order ONE of the following: *Sequential Compression Device (SCD) *Heparin 5000 units SQ BID 3-4 Higher Order ONE of the following medications: *Heparin 5000 units SQ TID *Enoxaparin/Lovenox 40 mg SQ daily (WT < 150 kg, CrCl > 30 mL/min) *Enoxaparin/Lovenox 30 mg SQ daily (WT < 150 kg, CrCl > 10-29 mL/min) *Enoxaparin/Lovenox 30 mg SQ BID (WT < 150 kg, CrCl > 30 mL/min) AND/OR *Sequential Compression Device (SCD) 5 or more Highest Order ONE of the following medications: *Heparin 5000 units SQ TID (Preferred with Epidurals) *Enoxaparin/Lovenox 40 mg SQ daily (WT < 150 kg, CrCl > 30 mL/min) *Enoxaparin/Lovenox 30 mg SQ daily (WT < 150 kg, CrCl > 10-29 mL/min) *Enoxaparin/Lovenox 30 mg SQ BID (WT < 150 kg, CrCl > 30 mL/min) AND *Sequential Compression Device (SCD) Assessment and Plan Plan Mr. Harrison is a pleasant 67-year-old male with a history of hypertension, diabetes mellitus, BPH, CHF who presents to the emergency department on 2018 due to shortness of breath. Patient's symptoms started after he drove back from [place]. He denies any cough, fever or chills. He did notice right leg swelling which has improved. ED workup indicated no PE. Probable acute congestive heart failure exacerbation diastolic Per chart review, last echocardiogram in 2016 shows ejection fraction 40-45%. Patient reports improvement after Lasix. We will continue Lasix IV 40 mg twice daily. -Consider Torsemide upon discharge. Obtain echocardiogram. Clinically patient does not appear to have pneumonia. He received azithromycin and ceftriaxone in the ED. We will hold off using antibiotics for now. Clinical suspicion for DVT/PE remains. CTA is negative for PE. Doppler ultrasound to rule out right lower extremity DVT NEGATIVE. Accelerated hypertension Blood pressure over 200 systolic. BP improved after furosemide. We will start nifedipine 60 mg daily. Currently blood pressure 136/82. Diabetes mellitus Patient takes metformin at home. We will continue sliding scale insulin. Goal blood glucose [id number]. If needed, consider long-acting insulin as well. GERD BPH Continue PPI and tamsulosin. Other: Previous discharge summary indicates history of atrial fibrillation. Patient was on diltiazem likely due to hypertension. No EKG evidence of atrial fibrillation found in our system. Full code. Lovenox.
--- NOTE | 2018-10-12 17:33 | US ---
EXAM DATE: 10/12/2018 5:28 PM EST AGE/SEX: 67 years / Male INDICATIONS: Right leg swelling. CLINICAL DATA: This is the patient's initial encounter. Patient reports that signs and symptoms have been present for 1 day and indicates a pain score of 0/10. MEDICAL/SURGICAL HISTORY: Congestive heart failure. Diabetes. Gastroesophageal reflux disease . Irregular heart beat. Renal calculi. Hypertension. . Prostate biopsy. Neck surgery. COMPARISON: No prior exams available for comparison. TECHNIQUE: Venous ultrasound of both lower extremities was performed from the inguinal ligament to t he proximal calf. Real-time, color Doppler and spectral tracing, compression and augmentation techni ques were used. FINDINGS: Normal compression of the deep venous system from the inguinal region to the proximal calf . No echogenic clot is seen. Normal response of the venous system to augmentation and respiration. CONCLUSION: 1. The study is negative for lower extremity deep venous thrombosis. Electronically signed by: Scot Chavez MD Board Certified Radiologist 10/12/2018 5:32 PM EST
[2018-10-12] MEDS: Insulin NovoLOG Aspart Correctional Sugar Inj SQ SCH ×2 (18:04→23:06)
--- NOTE | 2018-10-13 09:18 | P.PNIM ---
Subjective Interval history: f/u; CHF in no acute distress. feels better today. sob has improved. no chest pain or headache. BP trend noted. d/w the RN. Physical Exam Vital signs: Vital Signs 10/12/18 11:38 10/12/18 14:09 10/12/18 16:00 Temperature 97.9 F Pulse Rate 98 H 94 H 100 H Respiratory Rate 22 22 20 Blood Pressure 147/92 H 136/82 130/70 Pulse Oximetry 97 96 100 10/12/18 20:00 10/13/18 00:00 10/13/18 04:00 Temperature 98.2 F 96.9 F L 98.2 F Pulse Rate 92 H 89 82 Respiratory Rate 20 22 21 Blood Pressure 164/103 H 168/100 H 160/100 H Pulse Oximetry 96 95 94 L 10/13/18 08:00 Temperature 97.7 F Pulse Rate 88 Respiratory Rate 17 Blood Pressure 202/105 H Pulse Oximetry 93 L Intake & Output 10/12/18 10/13/18 10/13/18 18:59 06:59 18:59 Intake Total 830 / 830 480 / 480 Output Total 1000 / 1000 Balance -170 / -170 480 / 480 Weight 108.862 kg 112 kg Intake: IV 350 / 350 Azithromycin Inj 500 MG In NS 250 / 250 Inj 250 ML @ 250 mls/hr IV.SIG STAT STA Rx#:[id number] Rocephin Inj 2,000 MG In NS Inj 100 / 100 100 ML @ 200 mls/hr IV.SIG STAT STA Rx#:[id number] Oral 480 / 480 480 / 480 Output: Urine 1000 / 1000 Other: # Voids 4 4 Constitutional no acute distress Routine Respiratory Exam Present CTA bilaterally Routine Cardiovascular Exam Present RRR Routine Abdominal Exam Present soft Routine Extremities Exam Comments: no pedal edema. Routine Neurological Exam Present alert and oriented X3 Results Labs CBC & Chem 7: 10/12/18 08:30 10/14/18 04:01 Imaging Imaging: Impressions Venous Doppler Study 10/12/18 00:00 CONCLUSION: 1. The study is negative for lower extremity deep venous thrombosis. Chest CTA 10/12/18 09:05 CONCLUSION: 1. This study is negative for pulmonary embolism. 2. Focal patchy opacity is noted within the left upper lobe consistent with possible pneumonia and/or scarring. Clinical correlation is recommended. 3. Mildly prominent pretracheal and subcarinal mediastinal lymphadenopathy is noted with the largest node measuring 17 mm. 4. Small pericardial effusion. 5. Cardiomegaly. 6. Mild scattered underlying emphysematous changes are noted bilaterally. 7. Large right renal cyst measuring 12.3 cm. Assessment and Plan Plan A/P probable acute congestive heart failure exacerbation - clinically improved. Per chart review, last echocardiogram in 2015 shows ejection fraction 40-45%. Patient reports improvement after Lasix. We will continue Lasix IV 40 mg twice daily. - echocardiogram pending. Clinically patient does not appear to have pneumonia. He received azithromycin and ceftriaxone in the ED. We will hold off using antibiotics for now. CTA is negative for PE. Doppler ultrasound to rule out right lower extremity DVT NEGATIVE. Accelerated hypertension started nifedipine 60 mg daily. - vasotec prn. - will monitor and adjust the regimen as needed. Diabetes mellitus Patient takes metformin at home. We will continue sliding scale insulin. GERD BPH Continue PPI and tamsulosin. Discharge Planning: home tomorrow if BP better controlled and stable- pending echo.
[2018-10-13] MEDS: Insulin NovoLOG Aspart Correctional Sugar Inj SQ SCH ×4 (09:24→21:31)
--- NOTE | 2018-10-13 10:03 | ECHRPT ---
Indication: Heart Failure CONCLUSIONS Mildly dilated left ventricle. Mild concentric left ventricular hypertrophy. The left ventricular systolic function is mildly reduced with an estimated ejection fraction in the range of 45- 50%. The left atrial size is mildly dilated. Mild mitral valve regurgitation. Mitral annular calcification is present. BP: / HR: Rhythm: MEASUREMENTS (Male / Female) Normal Values Technical Quality:Fair 2D ECHO LV Diastolic Diameter PLAX 5.8 cm 4.2 - 5.9 / 3.9 - 5.3 cm LV Systolic Diameter PLAX 3.8 cm IVS Diastolic Thickness 1.3 cm 0.6 - 1.0 / 0.6 - 0.9 cm LVPW Diastolic Thickness 1.3 cm 0.6 - 1.0 / 0.6 - 0.9 cm LV Relative Wall Thickness 0.4 RV Internal Dim ED PLAX 3.0 cm LVOT Diameter 2.6 cm Aortic Root Diameter 3.7 cm LA Systolic Diameter LX 4.5 cm 3.0 - 4.0 / 2.7 - 3.8 cm DOPPLER AV Peak Velocity 125.0 cm/s AV Peak Gradient 6.3 mmHg LVOT Peak Velocity 82.9 cm/s LVOT Peak Gradient 2.7 mmHg AV Area Cont Eq pk 3.5 cm Mitral E Point Velocity 89.8 cm/s Mitral A Point Velocity 96.7 cm/s Mitral E to A Ratio 0.9 LV E' Lateral Velocity 6.1 cm/s Mitral E to LV E' Lateral Ratio 14.6 LV E' Septal Velocity 2.9 cm/s Mitral E to LV E' Septal Ratio 30.8 PV Peak Velocity 93.7 cm/s PV Peak Gradient 3.5 mmHg FINDINGS LEFT VENTRICLE Mildly dilated left ventricle. Mild concentric left ventricular hypertrophy. The left ventricular systolic function is mildly reduced with an estimated ejection fraction in the range of 45- 50%. RIGHT VENTRICLE Normal right ventricular size and systolic function. LEFT ATRIUM The left atrial size is mildly dilated. RIGHT ATRIUM The right atrial size is normal. ATRIAL SEPTUM Normal atrial septal thickness without atrial level shunting by limited color doppler interrogation. AORTA The aortic root and proximal ascending aorta are normal in size on limited imaging. MITRAL VALVE Mild mitral valve regurgitation. Mitral annular calcification is present. AORTIC VALVE Trileaflet aortic valve. No aortic valve stenosis or regurgitation. TRICUSPID VALVE Structurally normal tricuspid valve. No tricuspid valve stenosis or regurgitation. PULMONARY VALVE The pulmonary valve is not well visualized. VESSELS The inferior vena cava is normal in size. PERICARDIUM No pericardial effusion. Jv Escobedo MD, FACC, FSCAI (Electronically Signed) Final Date:13 October 2018 10:02
[2018-10-13] MEDS: Enoxaparin Inj 40 MG/0.4 ML Syringe SQ SCH (11:54)
[2018-10-14 04:39] VITALS: RESP 18
[2018-10-14 05:35] LABS: Calcium 8.6 mg/dL (8.5-10.1); Carbon Dioxide 32.7 meq/L (21.0-32.0); Potassium 3.4 meq/L (3.5-5.1)
--- NOTE | 2018-10-14 09:21 | P.PNIM ---
Subjective Interval history: f/u; CHF looks and feels much better today. sob has much improved. BP is better. wants to go home. Physical Exam Vital signs: Vital Signs 10/13/18 09:30 10/13/18 12:00 10/13/18 16:00 Temperature 97.4 F L 97.7 F Pulse Rate 93 H 87 Respiratory Rate 17 18 Blood Pressure 172/89 H 151/98 H Pulse Oximetry 93 L 93 L 96 10/13/18 19:25 10/13/18 20:00 10/13/18 20:36 Temperature 98.0 F Pulse Rate 93 H 85 Respiratory Rate 21 Blood Pressure 157/97 H Pulse Oximetry 94 L 95 10/14/18 00:00 10/14/18 00:08 10/14/18 04:01 Temperature 97.0 F L 96.9 F L Pulse Rate 88 92 H 87 Respiratory Rate 22 18 21 Blood Pressure 154/84 H 153/85 H Pulse Oximetry 97 95 10/14/18 04:38 Temperature Pulse Rate Respiratory Rate 18 Blood Pressure Pulse Oximetry Intake & Output 10/13/18 10/14/18 10/14/18 18:59 06:59 18:59 Intake Total 780 / 780 Balance 780 / 780 Weight 112 kg Intake: Oral 780 / 780 Other: # Voids 3 Date of Last Bowel Movement 10/13/18 10/13/18 Constitutional no acute distress Routine Respiratory Exam Present CTA bilaterally Routine Cardiovascular Exam Present RRR Routine Abdominal Exam Present soft Routine Extremities Exam Comments: no pedal edema. Routine Neurological Exam Present alert and oriented X3 Results Labs CBC & Chem 7: 10/12/18 08:30 10/14/18 04:01 Assessment and Plan Plan A/P acute on chronic systolic congestive heart failure exacerbation - clinically improved. echo with EF 50% Patient reports improvement after Lasix. We will continue Lasix as outpatient. continue Lisinopril. Clinically patient does not appear to have pneumonia. CTA is negative for PE. Doppler ultrasound right lower extremity negative for DVT. Accelerated hypertension- BP is now better. started nifedipine 60 mg daily. -continue Lisinopril. -f/u as outpatient. Diabetes mellitus Patient takes metformin at home. GERD BPH Continue PPI and tamsulosin. Discharge Planning: home today with f/u by pcp. see med list. d/w the patient.
--- NOTE | 2018-10-14 09:26 | P.DS ---
DS: Providers Date of admission: 10/12/18 10:49 Primary care physician: UNKNOWN Consults: 10/13/18 13:28 HUB Only Consult Order Routine Consulting Provider: Milly Atkins Brief History from admission: Mr. Harrison is a pleasant 67-year-old male with a history of hypertension, diabetes mellitus and CHF who presents to the emergency department on 10/12/2018 due to shortness of breath. Patient recently drove to [place]. After he drove back to [place], he started noticing shortness of breath especially at night. He reports right lower extremity swelling as well which has improved since then. He denies any cough, fever or chills. Denies any chest pain, abdominal pain. Denies any changes in bowel or bladder habits. On arrival pulse 126, respiratory rate 24, pulse oximetry 90% on room air, blood pressure 208/113. CBC largely unremarkable. Hemoglobin 14.5 , hematocrit 45.1. Creatinine 0.97. Glucose 209. CT pulmonary angiogram shows no PE but shows left upper lobe opacity. Past medical history: Hypertension, diabetes mellitus, GERD, CHF. Past surgical history: No major surgeries in the past. Social history: Patient smokes about 10 cigarettes a day. Denies using alcohol or illicit drugs. Family history: No family history of heart disease, cancer. DS: Summary patient was admitted with decompensated CHF and accelerated hypertension. he received IV lasix and started on Procardia XL after which his sob much improved along with his BP. he will be discharged home with f/u with his pcp. Time Spent with Patient Total time spent providing and/or coordinating discharge services: Less than 30 minutes Exam Narrative Exam Narrative: patient in no acute distress. S1/S2 heard/abdomen is soft/ no pedal edema/ patient is awake and oriented. Results Procedures completed during hospitalization: none. Labs on day of discharge: Labs from last 24 hours 10/14/18 10/14/18 10/13/18 08:08 04:01 21:22 Sodium 141 Potassium 3.4 L Chloride 102 Carbon Dioxide 32.7 H Anion Gap 6 BUN 14 Creatinine 0.89 Estimated GFR 86 L POC Glucose 226 H 243 H Random Glucose 193 H Calcium 8.6 10/13/18 10/13/18 17:22 11:53 Sodium Potassium Chloride Carbon Dioxide Anion Gap BUN Creatinine Estimated GFR POC Glucose 141 H 265 H Random Glucose Calcium Impressions ITS Impressions Venous Doppler Study 10/12/18 00:00 CONCLUSION: 1. The study is negative for lower extremity deep venous thrombosis. Chest X-Ray 10/12/18 08:23 CONCLUSION: 1. Mild central pulmonary vascular congestion. 2. Cardiomegaly. Chest CTA 10/12/18 09:05 CONCLUSION: 1. This study is negative for pulmonary embolism. 2. Focal patchy opacity is noted within the left upper lobe consistent with possible pneumonia and/or scarring. Clinical correlation is recommended. 3. Mildly prominent pretracheal and subcarinal mediastinal lymphadenopathy is noted with the largest node measuring 17 mm. 4. Small pericardial effusion. 5. Cardiomegaly. 6. Mild scattered underlying emphysematous changes are noted bilaterally. 7. Large right renal cyst measuring 12.3 cm. Discharge Plan Discharge Disposition Patient Disposition: Discharge Home Discharge Condition Condition: Fair Discharge Order Discharge Orders: Discharge Order (Routine); Ordered 10/14/18 Ordered By: Alisha Smith Physicians Team Primary Care Provider: UNKNOWN, Attending Provider: Alisha Smith Other Providers: Milly Atkins Rxs /Orders / Referrals /Forms Prescriptions: New nifedipine 60 mg Tablet Extended Release 24hr 60 mg PO DAILY 30 Days Qty: 30 RF: 0 furosemide [Lasix] 40 mg tablet 40 mg PO DAILY Qty: 30 RF: 0 potassium chloride 20 mEq tablet extended release 20 meq PO DAILY Qty: 30 RF: 0 lisinopril 5 mg tablet 5 mg PO DAILY Qty: 30 RF: 0 Continue metformin 500 mg Tablet 500 mg PO BID RF: 0 tamsulosin [Flomax] 0.4 mg Capsule,Extended Release 24hr 0.4 mg PO DAILY RF: 0 pantoprazole 40 mg Tablet,Delayed Release (Dr/Ec) 40 mg PO DAILY RF: 0 Discontinued ciprofloxacin HCl 500 mg Tablet 500 mg PO Q12HR Qty: 10 RF: 0 lisinopril 5 mg Tablet 10 mg PO DAILY Qty: 60 RF: 0 diltiazem HCl 60 mg Capsule,Extended Release 12 Hr 60 mg PO Q12H RF: 0 Referrals: Primary Care Physici,No [Family Provider] - See Instructions UNKNOWN, [Primary Care Provider] - See Instructions Discharge Instructions Patient Printed Instructions: Nifedipine (By mouth), Furosemide (By mouth), Hypertensive Crisis (GEN) Status ED Status: Left Department Discharge Information Discharge Date/Time: 10/14/18 11:40
[2018-10-14] MEDS: Insulin NovoLOG Aspart Correctional Sugar Inj SQ SCH (09:30)
[2018-10-14 09:52] VITALS: BP 160/94; PULSE 86; TEMP 97.1; O2SAT 93
[2018-10-14] MEDS: Enoxaparin Inj 40 MG/0.4 ML Syringe SQ SCH (10:26)
== END 2018-10-14 11:40 | disposition home or self-care (01) | DRG 293 ==
LOC: NEPD 08:16 → NEDA 10:49 → N07 15:55
PROVIDERS: ADMIT Internal Medicine; ATTEND Internal Medicine
CPT/HCPCS: 71010; 71045; 71275; 80048; 80053; 81001; 82550; 82948; 82962; 83520; 83605; 83735; 83880; 84484; 85025; 85610; 85730; 90774; 90784; 93005; 93306; 93971; 96374; 99285; C8952; J0456; J0696; J1650; J1815; J1940; J7050; Q9967